=== PATIENT | male | born 1935 | race Caucasian/White ===

== ENCOUNTER 2017-03-11 01:56 | Inpatient (IN) | payer MEDICARE, OTHER ==
[~2017-03-11] VITALS: Ht 180.3 cm; Wt 100.1 kg
[2017-03-11 02:15] VITALS: BP 204/87; PULSE 61; RESP 15; TEMP 97.7; O2SAT 100
[2017-03-11 03:13] VITALS: BP 171/77
[2017-03-11 03:15] LABS: AUTOMATED NEUTROPHIL # 4.6 TH/MM3 (1.8-7.7); BASOPHIL % 0.3 % (0.0-2.0); EOSINOPHIL # 0.1 TH/MM3 (0-0.4); HEMATOCRIT 42.7 % (39.0-51.0); HEMO FLAGS DIFF FINAL; LYMPH % 23.6 % (9.0-44.0); LYMPHOCYTE # 1.6 TH/MM3 (1.0-4.8); MEAN CELL VOLUME 94.4 FL (80.0-100.0); MEAN CORPUSCULAR HEMOGLOBIN 32.4 PG (27.0-34.0); MEAN CORPUSCULAR HGB CONC 34.4 % (32.0-36.0); MONO % 7.6 % (0.0-8.0); NEUT % 67.5 % (16.0-70.0); PLATELET COUNT 120 TH/MM3 (150-450); RED BLOOD COUNT 4.52 MIL/MM3 (4.50-5.90); RED CELL DISTRIBUTION WIDTH 14.1 % (11.6-17.2); WHITE BLOOD COUNT 6.8 TH/MM3 (4.0-11.0)
[2017-03-11 03:31] LABS: ALT (GPT) 28 U/L (12-78); ANION GAP 11 MEQ/L (5-15); AST (GOT) 20 U/L (15-37); BICARBONATE 23.9 MEQ/L (21.0-32.0); BLOOD UREA NITROGEN 31 MG/DL (7-18); CHLORIDE 107 MEQ/L (98-107); GLOMERULAR FILTRATION RATE 32 ML/MIN (>89); POTASSIUM 4.5 MEQ/L (3.5-5.1); SODIUM (NA) 142 MEQ/L (136-145)
[2017-03-11 03:33] LABS: ALKALINE PHOSPHATASE 69 U/L (45-117)
[2017-03-11 03:35] LABS: ALCOHOL LESS THAN 3 MG/DL (0-5)
--- NOTE | 2017-03-11 04:16 | PD ---
HPI Chief Complaint: Psychiatric Symptoms Time Seen by Provider: 02:30 Travel History International Travel<30 days: No Contact w/Intl Traveler<30days: No Traveled to known affect area: No History of Present Illness HPI 82yo M was sent here from [facility] because he has IDDM and is out of their scope. Pt is under Torres Act for thinking he is the president and wanting to take his to [place] so that he may take office. Pt denies any physical complaints. Denies any fever, cough, chest pain, sob, n/v, abdominal pain, focal weakness or numbness. Pt is cooperative and has no signs of trauma on him. Denies suicidal or homicidal ideations. PFSH Past Medical History Medical History: Unable to Obtain Past Surgical History Surgical History: Unable to Obtain Social History Alcohol Use: No Tobacco Use: No Allergies-Medications (Allergen,Severity, Reaction): Coded Allergies: Adhesives (Verified Allergy, Severe, 03/11/17) Reported Meds & Prescriptions Reported Meds & Active Scripts Active Cipro (Ciprofloxacin HCl) 500 Mg Tab 500 Mg PO BID 10 Days Reported Lantus Inj (Insulin Glargine) 100 Unit/Ml Inj Novolog Inj (Insulin Aspart) 100 Unit/Ml Inj Mirtazapine 7.5 Mg Tab 7.5 Mg PO HS Ranitidine (Ranitidine HCl) 300 Mg Cap 300 Mg PO HS Super [place]-3 ([place] 3 Fatty Acids-[place] 6 FA) 1 Cap Cap 1 Cap PO BID Lisinopril 5 Mg Tab 5 Mg PO DAILY Ranexa ER 12 HR (Ranolazine) 1,000 Mg Tab 1,000 Mg PO BID Tamsulosin (Tamsulosin HCl) 0.4 Mg Cap 0.4 Mg PO HS D-2000 Maximum Strength (Cholecalciferol) 2,000 Unit Tab 1,000 Units PO DAILY Atorvastatin (Atorvastatin Calcium) 20 Mg Tab 20 Mg PO HS Carvedilol 12.5 Mg Tab 12.5 Mg PO BID Review of Systems Except as stated in HPI: all other systems reviewed are Neg Physical Exam Narrative GENERAL: 82yo M not in distress. SKIN: Focused skin assessment warm/dry. HEAD: Atraumatic. Normocephalic. EYES: Pupils equal and round. No scleral icterus. No injection or drainage. ENT: No nasal bleeding or discharge. Mucous membranes pink and moist. NECK: Trachea midline. No JVD. CARDIOVASCULAR: Regular rate and rhythm. No murmur appreciated. RESPIRATORY: No accessory muscle use. Clear to auscultation. Breath sounds equal bilaterally. GASTROINTESTINAL: Abdomen soft, non-tender, nondistended. MUSCULOSKELETAL: No obvious deformities. No clubbing. No cyanosis. No edema. NEUROLOGICAL: Awake and alert. No obvious cranial nerve deficits. Motor grossly within normal limits. PSYCHIATRIC: Inappropriate mood and affect; poor insight and judgment. Data Data Last Documented VS Vital Signs Date Time Temp Pulse Resp B/P Pulse Ox O2 Delivery O2 Flow Rate FiO2 03/11/17 08:27 60 152/72 99 03/11/17 02:21 16 03/11/17 02:15 97.7 Orders Complete Blood Count With Diff (03/11/17 02:30) Comprehensive Metabolic Panel (03/11/17 02:30) Urinalysis - C+S If Indicated (03/11/17 02:30) Psych Screen (03/11/17 02:30) Drug Screen, Random Urine (03/11/17 02:30) Alcohol (Ethanol) (03/11/17 02:30) Urine Culture (03/11/17 12:30) Ceftriaxone Inj (Rocephin Inj) (03/11/17 13:45) Sodium Chlor 0.9% 1000 Ml Inj (Ns 1000 M (03/11/17 13:35) Ceftriaxone Inj (Rocephin Inj) (03/11/17 14:15) Admit Order (Ed Use Only) (03/11/17 ) Code Status (03/11/17 14:43) Vital Signs (Adult) [id number].[id number].E (03/11/17 14:43) Activity Oob Ad [place] (03/11/17 14:43) Level Of Observation (Psych) (03/11/17 14:43) Acetaminophen (Tylenol) (03/11/17 14:45) Magnesium Hydroxide Liq (Milk Of Magnesi (03/11/17 14:45) Al-Mag Hy-Si 40-40-4 Mg/Ml Liq (Mag-Al P (03/11/17 14:45) Basic Metabolic Panel (Bmp) (03/12/17 06:00) Lipid Profile (03/12/17 06:00) Hemoglobin (Hgb) A1c (03/12/17 06:00) Vitamin D, 25-Hydroxy (03/12/17 06:00) Vitamin B12 (03/12/17 06:00) Consult Hospitalist (03/11/17 ) Labs Laboratory Tests Test 03/11/17 03/11/17 02:58 12:30 White Blood Count 6.8 TH/MM3 Red Blood Count 4.52 MIL/MM3 Hemoglobin 14.7 GM/DL Hematocrit 42.7 % Mean Corpuscular Volume 94.4 FL Mean Corpuscular Hemoglobin 32.4 PG Mean Corpuscular Hemoglobin 34.4 % Concent Red Cell Distribution Width 14.1 % Platelet Count 120 TH/MM3 Mean Platelet Volume 9.6 FL Neutrophils (%) (Auto) 67.5 % Lymphocytes (%) (Auto) 23.6 % Monocytes (%) (Auto) 7.6 % Eosinophils (%) (Auto) 1.0 % Basophils (%) (Auto) 0.3 % Neutrophils # (Auto) 4.6 TH/MM3 Lymphocytes # (Auto) 1.6 TH/MM3 Monocytes # (Auto) 0.5 TH/MM3 Eosinophils # (Auto) 0.1 TH/MM3 Basophils # (Auto) 0.0 TH/MM3 CBC Comment DIFF FINAL Differential Comment Sodium Level 142 MEQ/L Potassium Level 4.5 MEQ/L Chloride Level 107 MEQ/L Carbon Dioxide Level 23.9 MEQ/L Anion Gap 11 MEQ/L Blood Urea Nitrogen 31 MG/DL Creatinine 2.02 MG/DL Estimat Glomerular Filtration 32 ML/MIN Rate Random Glucose 134 MG/DL Calcium Level 8.6 MG/DL Total Bilirubin 1.0 MG/DL Aspartate Amino Transf 20 U/L (AST/SGOT) Alanine Aminotransferase 28 U/L (ALT/SGPT) Alkaline Phosphatase 69 U/L Total Protein 7.5 GM/DL Albumin 3.9 GM/DL Ethyl Alcohol Level LESS THAN 3 MG/DL Urine Color YELLOW Urine Turbidity HAZY Urine pH 5.5 Urine Specific [place] 1.019 Urine Protein TRACE mg/dL Urine Glucose (UA) NEG mg/dL Urine Ketones NEG mg/dL Urine Occult Blood NEG Urine Nitrite NEG Urine Bilirubin NEG Urine Urobilinogen LESS THAN 2.0 MG/DL Urine Leukocyte Esterase LARGE Urine RBC 2 /hpf Urine WBC 91 /hpf Urine Squamous Epithelial 1 /hpf Cells Urine Transitional Epithelial <1 /hpf Cells Urine Bacteria RARE /hpf Urine Hyaline Casts 5 /lpf Urine Mucus FEW /lpf Microscopic Urinalysis Comment CULTURE INDICATED Urine Opiates Screen NEG Urine Barbiturates Screen NEG Urine Amphetamines Screen NEG Urine Benzodiazepines Screen NEG Urine Cocaine Screen NEG Urine Cannabinoids Screen NEG MDM Medical Decision Making Medical Screen Exam Complete: Yes Emergency Medical Condition: Yes Differential Diagnosis Dementia vs. delusions vs. infection Narrative Course 82yo M thinks he was president today. Labs reviewed, no leukocytosis. Glucose 134. Creatinine elevated at 2.02, no prior to compare. Alcohol negative. UA still pending. Pt is hypertensive, last BP is 171/77. Pt likely has long standing HTN but denies any complaints. Pt medically clear for psych evaluation for his delusions and since pt is in no acute distress, will not cath pt for urine, will send sample when able to obtain it. Diagnosis Primary Impression: Delusions Additional Impression: Elevated serum creatinine Scripts Ciprofloxacin (Cipro)500 Mg [id number] Mg PO BID 10 Days Ref 0 Prov:Priyanka Aguilar DO 03/11/17 Priyanka Aguilar DO Mar 11, 2017 04:16
[2017-03-11 08:27] VITALS: BP 152/72; PULSE 60; O2SAT 99
[2017-03-11 13:10] LABS: BACTERIA, URINE RARE /hpf; BLOOD, URINE NEG (NEG); GLUCOSE,URINE NEG (NEG); HYALINE CAST, URINE 5 /lpf (RARE); KETONE, URINE NEG (NEG); MUCUS URINE FEW /lpf (OCC); NITRITE,URINE NEG (NEG); PH, URINE 5.5 (5.0-8.5); SQUAMOUS EPITHELIAL CELL URINE 1 /hpf (0-5); TRANSITIONAL EPI CELLS, URINE <1 /hpf; URINE COLOR YELLOW (YELLW/STRAW)
[2017-03-11 13:11] LABS: COMMENT (UR) CULTURE INDICATED; CULTURE IF INDICATED CULTURE INDICATED
[2017-03-11] MEDS ORDERED: CARV12.52 PO (13:21)
[2017-03-11] MEDS ORDERED: RANI300C PO (13:27)
[2017-03-11] MEDS ORDERED: TAMS0.4C4 PO (13:27)
[2017-03-11] MEDS ORDERED: NOVOLOGSS (13:27)
[2017-03-11] MEDS ORDERED: LANTUS2P (13:27)
[2017-03-11] MEDS ORDERED: RANE1000 PO (13:27)
[2017-03-11] MEDS ORDERED: LISI-519 PO (13:27)
[2017-03-11] MEDS ORDERED: MIRT1TAB PO (13:27)
[2017-03-11] MEDS ORDERED: ATOR20TA15 PO (13:27)
[2017-03-11] MEDS ORDERED: D-20TAB3 PO (13:27)
[2017-03-11] MEDS ORDERED: SUPECAP PO (13:27)
[2017-03-11] MEDS ORDERED: CIPR-9 PO (13:29)
[2017-03-11] MEDS ORDERED: SODIUM CHLOR 0.9% 1000 ML INJ 1,000 ML IV SCH (13:35)
--- NOTE | 2017-03-11 13:37 | PD ---
Physical Exam Time Seen by Provider: 21:20 Data Data Last Documented VS Vital Signs Date Time Temp Pulse Resp B/P Pulse Ox O2 Delivery O2 Flow Rate FiO2 03/11/17 08:27 60 152/72 99 03/11/17 02:21 16 03/11/17 02:15 97.7 Orders Complete Blood Count With Diff (03/11/17 02:30) Comprehensive Metabolic Panel (03/11/17 02:30) Urinalysis - C+S If Indicated (03/11/17 02:30) Psych Screen (03/11/17 02:30) Drug Screen, Random Urine (03/11/17 02:30) Alcohol (Ethanol) (03/11/17 02:30) Diet Regular Basic (03/11/17 Lunch) Urine Culture (03/11/17 12:30) Ceftriaxone Inj (Rocephin Inj) (03/11/17 13:45) Sodium Chlor 0.9% 1000 Ml Inj (Ns 1000 M (03/11/17 13:35) Ceftriaxone Inj (Rocephin Inj) (03/11/17 14:15) Labs Laboratory Tests Test 03/11/17 03/11/17 02:58 12:30 White Blood Count 6.8 TH/MM3 Red Blood Count 4.52 MIL/MM3 Hemoglobin 14.7 GM/DL Hematocrit 42.7 % Mean Corpuscular Volume 94.4 FL Mean Corpuscular Hemoglobin 32.4 PG Mean Corpuscular Hemoglobin 34.4 % Concent Red Cell Distribution Width 14.1 % Platelet Count 120 TH/MM3 Mean Platelet Volume 9.6 FL Neutrophils (%) (Auto) 67.5 % Lymphocytes (%) (Auto) 23.6 % Monocytes (%) (Auto) 7.6 % Eosinophils (%) (Auto) 1.0 % Basophils (%) (Auto) 0.3 % Neutrophils # (Auto) 4.6 TH/MM3 Lymphocytes # (Auto) 1.6 TH/MM3 Monocytes # (Auto) 0.5 TH/MM3 Eosinophils # (Auto) 0.1 TH/MM3 Basophils # (Auto) 0.0 TH/MM3 CBC Comment DIFF FINAL Differential Comment Sodium Level 142 MEQ/L Potassium Level 4.5 MEQ/L Chloride Level 107 MEQ/L Carbon Dioxide Level 23.9 MEQ/L Anion Gap 11 MEQ/L Blood Urea Nitrogen 31 MG/DL Creatinine 2.02 MG/DL Estimat Glomerular Filtration 32 ML/MIN Rate Random Glucose 134 MG/DL Calcium Level 8.6 MG/DL Total Bilirubin 1.0 MG/DL Aspartate Amino Transf 20 U/L (AST/SGOT) Alanine Aminotransferase 28 U/L (ALT/SGPT) Alkaline Phosphatase 69 U/L Total Protein 7.5 GM/DL Albumin 3.9 GM/DL Ethyl Alcohol Level LESS THAN 3 MG/DL Urine Color YELLOW Urine Turbidity HAZY Urine pH 5.5 Urine Specific [place] 1.019 Urine Protein TRACE mg/dL Urine Glucose (UA) NEG mg/dL Urine Ketones NEG mg/dL Urine Occult Blood NEG Urine Nitrite NEG Urine Bilirubin NEG Urine Urobilinogen LESS THAN 2.0 MG/DL Urine Leukocyte Esterase LARGE Urine RBC 2 /hpf Urine WBC 91 /hpf Urine Squamous Epithelial 1 /hpf Cells Urine Transitional Epithelial <1 /hpf Cells Urine Bacteria RARE /hpf Urine Hyaline Casts 5 /lpf Urine Mucus FEW /lpf Microscopic Urinalysis Comment CULTURE INDICATED MDM Medical Record Reviewed: Yes Supervised Visit with HARRISON: No Narrative Course This is an 82-year-old male who is here under a Torres act for psychiatric evaluation. He was initially medically cleared by Dr. Aguilar 9 hours ago, please see her note for complete history of present illness. I was called by the psychiatric nurse because they were only recently able to obtain a urinalysis result which is suspicious for urinary tract infection. Urinalysis reveals 91 wbc's, culture is currently pending. The patient is only allergic to adhesives. He will be given IV Rocephin and 1 L of IV fluids here. He is likely being admitted psychiatrically according to the psychiatric nurse and they plan on consult jeaning the hospitalist group to continue treatment of this UTI and to follow-up with culture results. A prescription for ciprofloxacin has also been provided in case the patient is discharged sooner. He is medically cleared. The IV dose of Rocephin was changed to IM as the patient is in the psychiatric unit. Diagnosis Primary Impression: Delusions Additional Impressions: Elevated serum creatinine Urinary tract infection Qualified Code: N30.00 - Acute cystitis without hematuria Scripts Ciprofloxacin (Cipro)500 Mg [id number] Mg PO BID 10 Days Ref 0 Prov:Priyanka Aguilar DO 03/11/17 Prakash Rodriguez Mar 11, 2017 13:37
[2017-03-11] MEDS ORDERED: cefTRIAXone INJ 1,000 MG in SODIUM CHLORIDE 0.9% INJ 100 ML IV ONE (13:45)
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
[2017-03-11] MEDS ORDERED: ACETAMINOPHEN 325 MG TAB PO PRN (14:45)
[2017-03-11] MEDS ORDERED: MAGNESIUM HYDROXIDE SUSP 30 ML CUP PO PRN (14:45)
[2017-03-11] MEDS ORDERED: ALUMINUM/MAGNESIUM/SIMETH 30 ML CUP PO PRN (14:45)
[2017-03-11 15:57] VITALS: BP 152/72
[2017-03-11 18:51] VITALS: BP 130/60; PULSE 83
[2017-03-11] MEDS ORDERED: LORazepam 2 MG/ML VIAL IM ONE (19:00)
[2017-03-12 06:00] VITALS: BP 190/88
[2017-03-12 06:21] VITALS: BP 142/88; PULSE 60; RESP 17; TEMP 97.2; O2SAT 95
[2017-03-12] MEDS ORDERED: DEXTROSE 50% IN WATER 50 ML VIAL(D50) IV PRN (08:00)
[2017-03-12] MEDS ORDERED: GLUCAGON 1 MG/ML VIAL OTHER PRN (08:00)
[2017-03-12] MEDS: INSULIN ASPART SUPPLEMENTAL SCALE SQ SCH ×3 (11:00→21:00)
[2017-03-12 12:00] LABS: ANION GAP 8 MEQ/L (5-15); BICARBONATE 27.5 MEQ/L (21.0-32.0); BLOOD UREA NITROGEN 25 MG/DL (7-18); CHLORIDE 108 MEQ/L (98-107); GLOMERULAR FILTRATION RATE 43 ML/MIN (>89); POTASSIUM 4.7 MEQ/L (3.5-5.1); SODIUM (NA) 143 MEQ/L (136-145)
--- NOTE | 2017-03-12 12:10 | PD.TTN ---
Present for Treatment Team Treatment Team Staff: Provider (Dr. Richards), Nurse (Mary), Psych Therapist ( DWAYNE Richardson), Other Clinician (Corazon) Patient Problems 1. Discharge planning 2. Medication compliance 3. Knowledge deficit 4. Lack of coping skills Progress Toward Goals Provider Input: Dr. Richards requested an update regarding patient's progress, medication management, treatment plan, and discharge plan. Nurse Input: Mary reported the patient presents with a flat affect and became guarded and refused to respond when asked about voices. Per Mary, the patient refused breakfast. Psych Therapist Input: Counselor reported the patient is new and I have not yet assessed the patient. Other Clinican Input: Patient is a new admission. Documentation Scribe: Tatianna Lawler Date Resolved: Mar 12, 2017 Tatianna Lawler Mar 12, 2017 12:10
[2017-03-12 12:25] LABS: HDL CHOLESTEROL 42.7 MG/DL (40.0-60.0); LDL CHOLESTEROL 94 MG/DL (0-99)
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
[2017-03-12 16:00] VITALS: BP 164/74; PULSE 61; RESP 16; TEMP 97.5; O2SAT 100
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
[2017-03-12] MEDS ORDERED: PILL SPLITTER OTHER PRN (17:00)
[2017-03-12] MEDS ORDERED: ALUMINUM/MAGNESIUM/SIMETH 30 ML CUP PO PRN (17:00)
[2017-03-12] MEDS ORDERED: ACETAMINOPHEN 325 MG TAB PO PRN (17:00)
[2017-03-12 18:00] VITALS: BP 155/87; PULSE 64; RESP 17; TEMP 97.6; O2SAT 97
[2017-03-12 18:16] LABS: HEMOGLOBIN A1a 0.9 %; HEMOGLOBIN A1b 1.7 %; HEMOGLOBIN Ao 85.4 %; HEMOGLOBIN LA1C 2.1 %; HEMOGLOBIN P3 5.3 %
[2017-03-12] MEDS: RANOLAZINE 500 MG EXTENDED RELEASE TAB PO SCH (21:00)
[2017-03-12] MEDS ORDERED: MIRTAZAPINE 15 MG TAB PO SCH (21:00)
[2017-03-12] MEDS ORDERED: FATTY ACIDS OMEGA PO SCH (21:00)
[2017-03-12] MEDS ORDERED: OMEGA FA PO SCH (21:00)
[2017-03-12] MEDS: TAMSULOSIN HCL 0.4 MG CAP PO SCH (21:40)
[2017-03-12] MEDS: ATORVASTATIN 20 MG TAB PO SCH (21:41)
[2017-03-12] MEDS: CARVEDILOL 12.5 MG TAB PO SCH (21:41)
[2017-03-12] MEDS: FAMOTIDINE 20 MG TAB PO SCH (21:41)
[2017-03-12] MEDS: CIPROFLOXACIN 500 MG TAB PO SCH (21:41)
[2017-03-13 06:00] VITALS: BP 153/74; PULSE 60; RESP 18; TEMP 98.2; O2SAT 96
[2017-03-13] MEDS: INSULIN ASPART SUPPLEMENTAL SCALE SQ SCH ×4 (07:00→21:11)
[2017-03-13] MEDS: CHOLECALCIFEROL (VIT D3) 1000 UNIT TAB PO SCH (08:12)
[2017-03-13] MEDS: RANOLAZINE 500 MG EXTENDED RELEASE TAB PO SCH ×2 (08:13→21:01)
[2017-03-13] MEDS: CARVEDILOL 12.5 MG TAB PO SCH ×2 (08:14→21:01)
[2017-03-13] MEDS: LISINOPRIL 5 MG TAB PO SCH (08:14)
[2017-03-13] MEDS: FAMOTIDINE 20 MG TAB PO SCH ×2 (08:14→21:00)
[2017-03-13] MEDS: CIPROFLOXACIN 500 MG TAB PO SCH ×2 (08:15→21:01)
[2017-03-13 10:13] LABS: POTASSIUM 4.5 MEQ/L (3.5-5.1)
--- NOTE | 2017-03-13 10:31 | HHI.PYPN ---
Subjective Remarks Patient seen with nurse Monie in dayroom, chart review, patient compliant medications. Patient calm diffusely confused continues minimal socialization. The patient did remember some of our conversation from yesterday. Continues quite sad when attempting to discuss his mood he becomes somewhat tearful with decreased affect. Will increase his Remeron to 15 mg at at bedtime. He is been no behavioral problems. Review of Systems Except as stated in HPI: all other systems reviewed are Neg Objective Alert: Yes [place]: Person, [place] Date, Situation Mood: Calm, Depressed Affect: Other ([place]. ) Memory Intact: Comment (impaired at present) Hallucinations: Auditory, Visual Delusions: Yes Delusion Type: Grandiose (He is the President of the World) Suicidal: Ideation (no plan) Homicidal: Ideation (Negative) Insight/Judgment Poor Labs Test 03/12/17 03/13/17 10:30 08:46 Sodium Level 143 MEQ/L 141 MEQ/L Potassium Level 4.7 MEQ/L 4.5 MEQ/L Chloride Level 108 MEQ/L 107 MEQ/L Carbon Dioxide Level 27.5 MEQ/L 26.0 MEQ/L Anion Gap 8 MEQ/L 8 MEQ/L Blood Urea Nitrogen 25 MG/DL 29 MG/DL Creatinine 1.54 MG/DL 1.66 MG/DL Estimat Glomerular Filtration 43 ML/MIN 40 ML/MIN Rate Random Glucose 100 MG/DL 120 MG/DL Hemoglobin A1c 5.3 % Calcium Level 8.9 MG/DL 8.8 MG/DL Triglycerides Level 142 MG/DL Cholesterol Level 165 MG/DL LDL Cholesterol 94 MG/DL HDL Cholesterol 42.7 MG/DL Cholesterol/HDL Ratio 3.86 RATIO Vitamin B12 Level 1685 PG/ML 25-Hydroxy Vitamin D Total 22.3 ng/ML Date/Time Procedure Status Source Growth 03/11/17 12:30 Urine Culture - Final Complete Urine Clean Catch 50-100,000 CFU/ML MIXED GRAM POSITIVE... Vitals/IOs Vital Signs Date Time Temp Pulse Resp B/P Pulse Ox O2 Delivery O2 Flow Rate FiO2 03/13/17 06:00 98.2 60 18 153/74 96 Intake and Output 03/12/17 03/12/17 03/13/17 08:00 16:00 00:00 Intake Total 0 ml 0 ml 120 ml Balance 0 ml 0 ml 120 ml Assessment & Plan Problem List: (1) PTSD (post-traumatic stress disorder) ICD Code: F43.10 (2) Urinary tract infection ICD Code: N39.0 (3) Major depressive disorder, recurrent episode, moderate with mixed features ICD Code: F33.1 Assessment & Plan Estimated LOS: days patient continues depressed somewhat confused, though no behavior problems see medication adjustment above Justification for Cont. Inpt. At this time patient will decompensate placed in a lower level of care Discharge Planning To be determined Request HC Surrog/Guard Advoc?: No Problem Qualifiers (1) Urinary tract infection: Qualified Code: N30.00 - Acute cystitis without hematuria Marcus Richards MD Mar 13, 2017 10:31
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
[2017-03-13] MEDS: hydrOXYzine HCL 50 MG TAB PO PRN ×2 (15:46→15:58)
[2017-03-13 15:47] VITALS: BP 159/71; PULSE 42; RESP 18; TEMP 97.2; O2SAT 98
[2017-03-13] MEDS ORDERED: diphenhydrAMINE HCL 50 MG/ML VIAL ONE (16:50)
[2017-03-13] MEDS ORDERED: HALOPERIDOL LACTATE 5 MG/ML AMP ONE (16:50)
[2017-03-13] MEDS ORDERED: LORazepam 2 MG/ML VIAL ONE (16:50)
[2017-03-13] MEDS: MIRTAZAPINE 15 MG TAB PO SCH (20:59)
[2017-03-13] MEDS: TAMSULOSIN HCL 0.4 MG CAP PO SCH (21:01)
[2017-03-13] MEDS: ATORVASTATIN 20 MG TAB PO SCH (21:01)
[2017-03-14 06:00] VITALS: BP 93/46; PULSE 60; RESP 19; TEMP 97; O2SAT 96
[2017-03-14] MEDS: INSULIN ASPART SUPPLEMENTAL SCALE SQ SCH ×4 (06:33→20:02)
[2017-03-14] MEDS: CIPROFLOXACIN 500 MG TAB PO SCH (08:54)
[2017-03-14] MEDS: LISINOPRIL 5 MG TAB PO SCH (08:55)
[2017-03-14] MEDS: CARVEDILOL 12.5 MG TAB PO SCH ×2 (08:55→20:09)
[2017-03-14] MEDS: CHOLECALCIFEROL (VIT D3) 1000 UNIT TAB PO SCH (08:55)
[2017-03-14] MEDS: RANOLAZINE 500 MG EXTENDED RELEASE TAB PO SCH ×2 (08:55→20:09)
[2017-03-14] MEDS: FAMOTIDINE 20 MG TAB PO SCH ×2 (09:00→20:10)
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
[2017-03-14 13:01] VITALS: BP 110/61; PULSE 60
--- NOTE | 2017-03-14 15:30 | HHI.PYPN ---
Subjective Remarks Met with patient's and son this morning along with counselor Kiki, the shared with us patient's fairly rapid psychotic behavior. But appears she had an episode when they were living in [place] a few years ago. Patient has a history though level is somewhat explosive behavior in the past. Though they deny any significant alcohol or drug use with this man. Patient did have an outburst last night that necessitated the use of a ETO of Haldol Ativan and Benadryl. Patient seen by me this afternoon he is sitting in a Latoya chair he is calm pleasant appears a little bit more confused than yesterday little more disorganized speech. We'll continue to monitor him tonight shows more behavior dyscontrol he may need to consider scheduled Haldol or other medication Review of Systems Except as stated in HPI: all other systems reviewed are Neg Objective Alert: Yes [place]: Person, [place] Date, Situation Mood: Calm, Depressed Affect: Other ([place]. ) Memory Intact: Comment (impaired at present) Hallucinations: Auditory, Visual Delusions: Yes Delusion Type: Grandiose (He is the President of the World) Suicidal: Ideation (no plan) Homicidal: Ideation (Negative) Insight/Judgment Poor Labs Date/Time Procedure Status Source Growth 03/11/17 12:30 Urine Culture - Final Complete Urine Clean Catch 50-100,000 CFU/ML MIXED GRAM POSITIVE... Vitals/IOs Vital Signs Date Time Temp Pulse Resp B/P Pulse Ox O2 Delivery O2 Flow Rate FiO2 03/14/17 13:01 60 110/61 03/14/17 06:00 97.0 19 96 Intake and Output 03/13/17 03/13/17 03/14/17 08:00 16:00 00:00 Intake Total 480 ml 720 ml Balance 480 ml 720 ml Assessment & Plan Problem List: (1) Major depressive disorder, recurrent severe without psychotic features ICD Code: F33.2 Assessment & Plan Estimated LOS: days patient continues confused, and somewhat more vigilant this afternoon. We'll continue to observe for any dyscontrol the Torres later this afternoon or evening Justification for Cont. Inpt. At this time patient decompensate the place to the lower level of care Discharge Planning To be determined Marcus Richards MD Mar 14, 2017 15:30
[2017-03-14 18:00] VITALS: BP 147/66; PULSE 64; RESP 18; TEMP 97.5; O2SAT 98
[2017-03-14] MEDS: MIRTAZAPINE 15 MG TAB PO SCH (20:09)
[2017-03-14] MEDS: TAMSULOSIN HCL 0.4 MG CAP PO SCH (20:10)
[2017-03-14] MEDS: ATORVASTATIN 20 MG TAB PO SCH (20:10)
[2017-03-15 05:22] VITALS: BP 181/81; PULSE 60; RESP 18; TEMP 97.4; O2SAT 98
[2017-03-15] MEDS: CARVEDILOL 12.5 MG TAB PO SCH ×2 (05:28→21:52)
[2017-03-15] MEDS: INSULIN ASPART SUPPLEMENTAL SCALE SQ SCH ×4 (06:04→21:00)
[2017-03-15] MEDS: RANOLAZINE 500 MG EXTENDED RELEASE TAB PO SCH ×2 (09:11→21:55)
[2017-03-15] MEDS: FAMOTIDINE 20 MG TAB PO SCH ×2 (09:11→21:52)
[2017-03-15] MEDS: LISINOPRIL 5 MG TAB PO SCH (09:11)
[2017-03-15] MEDS: CHOLECALCIFEROL (VIT D3) 1000 UNIT TAB PO SCH (09:11)
--- NOTE | 2017-03-15 10:19 | HHI.PYPN ---
Subjective Remarks Patient seen in dayroom with floor staff, chart reviewed. Patient showing some mixed compliance with medication. The present time patient sitting quietly in his Latoya chair with a somewhat flat sad gaze. However it appears she did recognize me. He became more reactive with me became better eye contact occasional small smile when appropriate verbal responses. Neurology consult noted reviewed and appreciated. Patient now will be getting his CT. For now continue treatment Review of Systems Except as stated in HPI: all other systems reviewed are Neg Objective Alert: Yes [place]: Person, Place [place] Date, Situation Mood: Calm, Depressed Affect: Other ([place]. ) Memory Intact: Comment (impaired at present) Hallucinations: Auditory, Visual Delusions: Yes Delusion Type: Grandiose (He is the President of the World) Suicidal: Ideation (no plan) Homicidal: Ideation (Negative) Insight/Judgment Poor Labs Date/Time Procedure Status Source Growth 03/11/17 12:30 Urine Culture - Final Complete Urine Clean Catch 50-100,000 CFU/ML MIXED GRAM POSITIVE... Vitals/IOs Vital Signs Date Time Temp Pulse Resp B/P Pulse Ox O2 Delivery O2 Flow Rate FiO2 03/15/17 05:22 97.4 60 18 181/81 98 Intake and Output 03/14/17 03/14/17 03/15/17 08:00 16:00 00:00 Intake Total 120 ml 0 ml 960 ml Balance 120 ml 0 ml 960 ml Assessment & Plan Problem List: (1) Major depressive disorder, recurrent severe without psychotic features ICD Code: F33.2 Assessment & Plan Estimated LOS: days patient continues depressed somewhat confused. Some resistance to treatment. To be getting his CT scan today Justification for Cont. Inpt. At this time patient will decompensate if placed a lower level of care Discharge Planning Be determined Marcus Richards MD Mar 15, 2017 10:19
--- NOTE | 2017-03-15 11:29 | RADRPT ---
EXAM DATE/TIME: 03/15/2017 10:13 [place] COMPARISON: No previous studies available for comparison. INDICATIONS : Altered mental status. RADIATION DOSE: 48.49 CTDIvol (mGy) MEDICAL HISTORY : Hypertension. SURGICAL HISTORY : Pacemaker. ENCOUNTER: Initial ACUITY: 1 day PAIN SCALE: 0/10 LOCATION: cranial TECHNIQUE: Multiple contiguous axial images were obtained of the head. Using automated exposure control and adj ustment of the mA and/or kV according to patient size, radiation dose was kept as low as reasonably a chievable to obtain optimal diagnostic quality images. DICOM format image data is available electro nically for review and comparison. FINDINGS: CEREBRUM: Cerebral atrophy is noted. No evidence of midline shift, mass lesion, hemorrhage or acute infarction . No extra-axial fluid collections are seen. POSTERIOR FOSSA: The cerebellum and brainstem are intact. The 4th ventricle is midline. The cerebellopontine angle i s unremarkable. EXTRACRANIAL: The visualized portion of the orbits is intact. SKULL: The calvaria is intact. No evidence of skull fracture. CONCLUSION: 1. Cerebral atrophy. 2. No acute infarct, acute hemorrhage, mass effect or extra-axial fluid collections. Daniel Elizondo MD on March 15, 2017 at 11:25 Board Certified Radiologist. This report was verified electronically.
[2017-03-15 17:51] VITALS: BP 159/70; PULSE 42; RESP 18; TEMP 97.2
[2017-03-15] MEDS: TAMSULOSIN HCL 0.4 MG CAP PO SCH (21:52)
[2017-03-15] MEDS: ATORVASTATIN 20 MG TAB PO SCH (21:52)
[2017-03-15] MEDS: MIRTAZAPINE 15 MG TAB PO SCH (21:52)
[2017-03-16 05:59] VITALS: BP 158/70; PULSE 61; RESP 17; TEMP 98.4; O2SAT 96
[2017-03-16] MEDS: INSULIN ASPART SUPPLEMENTAL SCALE SQ SCH ×4 (06:21→20:29)
[2017-03-16] MEDS: FAMOTIDINE 20 MG TAB PO SCH ×2 (09:00→20:29)
[2017-03-16] MEDS: LISINOPRIL 5 MG TAB PO SCH (09:51)
[2017-03-16] MEDS: CARVEDILOL 12.5 MG TAB PO SCH ×2 (09:56→20:29)
[2017-03-16] MEDS: CHOLECALCIFEROL (VIT D3) 1000 UNIT TAB PO SCH (09:58)
[2017-03-16] MEDS: RANOLAZINE 500 MG EXTENDED RELEASE TAB PO SCH ×2 (11:19→20:29)
[2017-03-16 14:01] LABS: BICARBONATE 24.2 MEQ/L (21.0-32.0); POTASSIUM 4.4 MEQ/L (3.5-5.1)
--- NOTE | 2017-03-16 15:19 | HHI.PYPN ---
Subjective Remarks Patient seen in day room with counselor Kiki, chart review, patient compliant medications. Patient calm slightly confused today his mood and affect are somewhat improved over yesterday. He is compliant medications. For now continue treatment Review of Systems Except as stated in HPI: all other systems reviewed are Neg Objective Alert: Yes [place]: Person, Place [place] Date, Situation Mood: Calm, Depressed Affect: Other ([place]. ) Memory Intact: Comment (impaired at present) Hallucinations: Auditory, Visual Delusions: Yes Delusion Type: Grandiose (He is the President of the World) Suicidal: Ideation (no plan) Homicidal: Ideation (Negative) Insight/Judgment Very poor Labs Test 03/16/17 13:20 Sodium Level 143 MEQ/L Potassium Level 4.4 MEQ/L Chloride Level 108 MEQ/L Carbon Dioxide Level 24.2 MEQ/L Anion Gap 11 MEQ/L Blood Urea Nitrogen 44 MG/DL Creatinine 2.05 MG/DL Estimat Glomerular Filtration 31 ML/MIN Rate Random Glucose 114 MG/DL Calcium Level 9.1 MG/DL Vitals/IOs Vital Signs Date Time Temp Pulse Resp B/P Pulse Ox O2 Delivery O2 Flow Rate FiO2 03/16/17 05:59 98.4 61 17 158/70 96 Intake and Output 03/15/17 03/15/17 03/16/17 08:00 16:00 00:00 Intake Total 120 ml 120 ml 120 ml Balance 120 ml 120 ml 120 ml Assessment & Plan Problem List: (1) Major depressive disorder, recurrent severe without psychotic features ICD Code: F33.2 Assessment & Plan Estimated LOS: days patient continues depressed but somewhat more reactive today compliant medications. Justification for Cont. Inpt. At this time patient will decompensate if placed a lower level of care Discharge Planning To be determined Marcus Richards MD Mar 16, 2017 15:19
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
[2017-03-16 17:43] VITALS: BP 113/58; PULSE 60; RESP 18; TEMP 97.6; O2SAT 95
[2017-03-16] MEDS ORDERED: cloNIDine HCL 0.1 MG TAB PO PRN (18:00)
--- NOTE | 2017-03-16 20:17 | RADRPT ---
EXAM DATE/TIME: 03/16/2017 19:01 [place] COMPARISON: No previous studies available for comparison. INDICATIONS : Increased lab values. MEDICAL HISTORY : Hypertension. Homicidal behavior. Incontinent. SURGICAL HISTORY : Pacemaker. ENCOUNTER: Initial ACUITY: 1 day PAIN SCORE: 0/10 LOCATION: Bilateral flank MEASUREMENTS: cm LEFT KIDNEY: 10.0 x 5.6 x 5.9 cm FINDINGS: Right kidney not visualized. Numerous vascular calcifications noted in the left kidney. Left kidney a ppears atrophic. No hydronephrosis. No free fluid identified. CONCLUSION: 1. Right kidney not visualized. Mildly atrophic left kidney without hydronephrosis. Jamie Almanza MD on March 16, 2017 at 20:15 Board Certified Radiologist. This report was verified electronically.
[2017-03-16] MEDS: MIRTAZAPINE 15 MG TAB PO SCH (20:29)
[2017-03-16] MEDS: ATORVASTATIN 20 MG TAB PO SCH (20:29)
[2017-03-16] MEDS: TAMSULOSIN HCL 0.4 MG CAP PO SCH (20:29)
[2017-03-16] MEDS: SODIUM CHLOR 0.9% 1000 ML INJ 1,000 ML IV SCH (21:00)
[2017-03-17] MEDS: SODIUM CHLOR 0.9% 1000 ML INJ 1,000 ML IV SCH ×3 (04:55→21:46)
[2017-03-17 06:15] VITALS: BP 143/67; PULSE 61; RESP 18; TEMP 97.8; O2SAT 99
[2017-03-17] MEDS: INSULIN ASPART SUPPLEMENTAL SCALE SQ SCH (06:46)
[2017-03-17] MEDS: CARVEDILOL 12.5 MG TAB PO SCH ×2 (07:40→21:00)
[2017-03-17] MEDS: CHOLECALCIFEROL (VIT D3) 1000 UNIT TAB PO SCH (07:40)
[2017-03-17] MEDS: RANOLAZINE 500 MG EXTENDED RELEASE TAB PO SCH ×2 (07:40→21:00)
[2017-03-17] MEDS: FAMOTIDINE 20 MG TAB PO SCH ×2 (07:40→21:00)
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
[2017-03-17 13:18] LABS: BICARBONATE 22.2 MEQ/L (21.0-32.0); POTASSIUM 3.9 MEQ/L (3.5-5.1)
--- NOTE | 2017-03-17 15:50 | HHI.PYPN ---
Subjective Remarks Patient seen in his room sitting on chair beside his bed with his and his son. Along with nurse Jaja. Patient calm pleasant reactive with a good smile. Somewhat more oriented today also. For now can continue treatment Review of Systems Except as stated in HPI: all other systems reviewed are Neg Objective Alert: Yes [place]: Person, [place] Date, Situation Mood: Calm, Depressed Affect: Other ([place]. ) Memory Intact: Comment (impaired at present) Hallucinations: Auditory, Visual Delusions: Yes Delusion Type: Grandiose (He is the President of the World) Suicidal: Ideation (no plan) Homicidal: Ideation (Negative) Insight/Judgment Poor Labs Test 03/17/17 12:07 Sodium Level 141 MEQ/L Potassium Level 3.9 MEQ/L Chloride Level 109 MEQ/L Carbon Dioxide Level 22.2 MEQ/L Anion Gap 10 MEQ/L Blood Urea Nitrogen 42 MG/DL Creatinine 1.94 MG/DL Estimat Glomerular Filtration 33 ML/MIN Rate Random Glucose 165 MG/DL Calcium Level 8.2 MG/DL Vitals/IOs Vital Signs Date Time Temp Pulse Resp B/P Pulse Ox O2 Delivery O2 Flow Rate FiO2 03/17/17 06:15 97.8 61 18 143/67 99 Intake and Output 03/16/17 03/16/17 03/17/17 08:00 16:00 00:00 Intake Total 240 ml 480 ml 240 ml Balance 240 ml 480 ml 240 ml Assessment & Plan Problem List: (1) Major depressive disorder, recurrent severe without psychotic features ICD Code: F33.2 Assessment & Plan Estimated LOS: days patient showing some improved affect reactivite and smiling. For now continue treatment Justification for Cont. Inpt. At this time patient will decompensate placed in the lower level of care Discharge Planning To be determined Marcus Richards MD Mar 17, 2017 15:50
[2017-03-17] MEDS ORDERED: HALOPERIDOL LACTATE 5 MG/ML AMP IV PUSH STA (17:14)
[2017-03-17] MEDS ORDERED: LORazepam 2 MG/ML VIAL IV PUSH STA (17:14)
[2017-03-17 18:00] VITALS: BP 113/55; PULSE 60; RESP 18; TEMP 98.1; O2SAT 98
[2017-03-17] MEDS: TAMSULOSIN HCL 0.4 MG CAP PO SCH (21:00)
[2017-03-17] MEDS: MIRTAZAPINE 15 MG TAB PO SCH (21:00)
[2017-03-17] MEDS: ATORVASTATIN 20 MG TAB PO SCH (21:00)
[2017-03-18] MEDS: SODIUM CHLOR 0.9% 1000 ML INJ 1,000 ML IV SCH ×2 (03:50→14:30)
[2017-03-18 06:12] VITALS: BP 164/70; PULSE 64; RESP 16; TEMP 98.9; O2SAT 97
--- NOTE | 2017-03-18 08:26 | HHI.PYPN ---
Subjective Remarks Patient seen in his room with nurse know. Patient did have some behavioral issues outburst last night after being visited by his and son. I feel this reflection of his depression and his desire to be with his of 62 years. This morning he still remained somewhat depressed and sad. Though there may be some remnants of the Haldol/Ativan that he was given last night. For now continue treatment Review of Systems Except as stated in HPI: all other systems reviewed are Neg Objective Alert: Yes [place]: Person, Place [place] Date, Situation Mood: Calm, Depressed Affect: Other ([place]. ) Memory Intact: Comment (impaired at present) Hallucinations: Auditory, Visual Delusions: Yes Delusion Type: Grandiose (He is the President of the World) Suicidal: Ideation (no plan) Homicidal: Ideation (Negative) Insight/Judgment Poor Labs Test 03/17/17 12:07 Sodium Level 141 MEQ/L Potassium Level 3.9 MEQ/L Chloride Level 109 MEQ/L Carbon Dioxide Level 22.2 MEQ/L Anion Gap 10 MEQ/L Blood Urea Nitrogen 42 MG/DL Creatinine 1.94 MG/DL Estimat Glomerular Filtration 33 ML/MIN Rate Random Glucose 165 MG/DL Calcium Level 8.2 MG/DL Vitals/IOs Vital Signs Date Time Temp Pulse Resp B/P Pulse Ox O2 Delivery O2 Flow Rate FiO2 03/18/17 06:12 98.9 64 16 164/70 97 Intake and Output 03/17/17 03/17/17 03/18/17 08:00 16:00 00:00 Intake Total 120 ml 1696 ml 1332 ml Balance 120 ml 1696 ml 1332 ml Assessment & Plan Problem List: (1) Major depressive disorder, recurrent severe without psychotic features ICD Code: F33.2 Assessment & Plan Estimated LOS: days patient continues depressed some behavioral issues. For now continue treatment Justification for Cont. Inpt. At this time patient will decompensate if placed in a lower level of care Discharge Planning To be determined Marcus Richards MD Mar 18, 2017 08:26
[2017-03-18] MEDS: CARVEDILOL 12.5 MG TAB PO SCH ×3 (08:48→21:00)
[2017-03-18] MEDS: FAMOTIDINE 20 MG TAB PO SCH ×3 (08:48→21:00)
[2017-03-18] MEDS: CHOLECALCIFEROL (VIT D3) 1000 UNIT TAB PO SCH ×2 (08:48→09:00)
[2017-03-18] MEDS: RANOLAZINE 500 MG EXTENDED RELEASE TAB PO SCH ×3 (08:48→21:00)
[2017-03-18 08:54] LABS: BICARBONATE 23.8 MEQ/L (21.0-32.0); POTASSIUM 4.2 MEQ/L (3.5-5.1)
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
[2017-03-18 17:30] VITALS: BP 160/73; PULSE 80; RESP 18; TEMP 97.8; O2SAT 99
[2017-03-18] MEDS: TAMSULOSIN HCL 0.4 MG CAP PO SCH (21:00)
[2017-03-18] MEDS: MIRTAZAPINE 15 MG TAB PO SCH (21:00)
[2017-03-18] MEDS: ATORVASTATIN 20 MG TAB PO SCH (21:00)
[2017-03-19] MEDS: SODIUM CHLOR 0.9% 1000 ML INJ 1,000 ML IV SCH ×2 (04:35→16:30)
[2017-03-19 04:55] VITALS: BP 146/83; PULSE 86; RESP 17; TEMP 98.1; O2SAT 97
[2017-03-19 04:56] VITALS: BP 175/78; PULSE 59; RESP 16; TEMP 98.1
[2017-03-19] MEDS: FAMOTIDINE 20 MG TAB PO SCH ×2 (08:18→21:00)
[2017-03-19] MEDS: RANOLAZINE 500 MG EXTENDED RELEASE TAB PO SCH ×2 (08:18→21:00)
[2017-03-19] MEDS: CARVEDILOL 12.5 MG TAB PO SCH ×2 (08:18→21:00)
[2017-03-19] MEDS: CHOLECALCIFEROL (VIT D3) 1000 UNIT TAB PO SCH (08:18)
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
[2017-03-19] MEDS: HALOPERIDOL 2 MG TAB PO SCH (10:30)
--- NOTE | 2017-03-19 11:38 | PD.TTN ---
Present for Treatment Team Treatment Team Staff: Provider, Nurse, Psych Therapist, Occupational Therapist Patient Problems 1. Discharge planning 2. Medication compliance 3. Knowledge deficit 4. Lack of coping skills Progress Toward Goals Provider Input: Dr. Louie will be making adjustments with patient's medication to address, auditory and visual hallucination, and night time sleep disturbs. Nurse Input: Ron Joyce RN reports patient is paranoid with medication, meals and care. Psych Therapist Input: Counselor will speak with patient's family Occupational Therapist Input: GIGI Mathias, will address appropriate activities to meet patient's needs Documentation Teaching Recipient: Patient Berta Lora [facility] Mar 19, 2017 11:38
[2017-03-19 12:20] LABS: BICARBONATE 23.1 MEQ/L (21.0-32.0); POTASSIUM 4.3 MEQ/L (3.5-5.1)
[2017-03-19 18:00] VITALS: BP 141/66; PULSE 61; RESP 16; TEMP 99.1; O2SAT 97
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
[2017-03-19] MEDS: TAMSULOSIN HCL 0.4 MG CAP PO SCH (21:00)
[2017-03-19] MEDS: MIRTAZAPINE 15 MG TAB PO SCH (21:00)
[2017-03-19] MEDS: ATORVASTATIN 20 MG TAB PO SCH (21:00)
[2017-03-20] MEDS: SODIUM CHLOR 0.9% 1000 ML INJ 1,000 ML IV SCH ×2 (04:25→08:51)
[2017-03-20 05:52] VITALS: BP 168/71; PULSE 78; RESP 18; TEMP 97.7; O2SAT 97
[2017-03-20 06:24] VITALS: BP 168/71; PULSE 78; RESP 18; TEMP 97.7; O2SAT 97
[2017-03-20] MEDS: CARVEDILOL 12.5 MG TAB PO SCH ×2 (08:51→20:03)
[2017-03-20] MEDS: CHOLECALCIFEROL (VIT D3) 1000 UNIT TAB PO SCH (08:51)
[2017-03-20] MEDS: FAMOTIDINE 20 MG TAB PO SCH ×2 (08:51→20:03)
[2017-03-20] MEDS: HALOPERIDOL 2 MG TAB PO SCH ×2 (08:51→20:03)
[2017-03-20] MEDS: RANOLAZINE 500 MG EXTENDED RELEASE TAB PO SCH ×2 (08:51→20:03)
--- NOTE | 2017-03-20 09:24 | HHI.PR ---
Subjective Remarks Patient in the chair. Says she feels anxious but he is better today. Says she gets sob and with chest pain with anxiety. No n/v/d/c. Objective Vitals Vital Signs Date Time Temp Pulse Resp B/P Pulse Ox O2 Delivery O2 Flow Rate FiO2 03/20/17 06:24 97.7 78 18 168/71 97 03/20/17 05:52 97.7 78 18 168/71 97 03/19/17 18:00 99.1 61 16 141/66 97 I/O 03/19/17 03/19/17 03/19/17 03/20/17 03/20/17 03/20/17 07:00 15:00 23:00 07:00 15:00 23:00 Intake Total 840 ml 1080 ml 120 ml 240 ml Balance 840 ml 1080 ml 120 ml 240 ml Intake Oral 840 ml 1080 ml 120 ml 240 ml # Voids 3 1 1 Result Diagram: 03/19/17 1128 Imaging Last Impressions Renal Ultrasound 03/16/17 0000 Signed Impressions: Service Date/Time: Thursday, March 16, 2017 19:01 - CONCLUSION: 1. Right kidney not visualized. Mildly atrophic left kidney without hydronephrosis. Jamie Almanza MD Head CT 03/15/17 0000 Signed Impressions: Service Date/Time: February 10:13 - CONCLUSION: 1. Cerebral atrophy. 2. No acute infarct, acute hemorrhage, mass effect or extra-axial fluid collections. Daniel Elizondo MD Objective Remarks GENERAL: This is a well-nourished, well-developed patient, in no apparent distress. CARDIOVASCULAR: Regular rate and rhythm without murmurs, gallops, or rubs. RESPIRATORY: Clear to auscultation. Breath sounds equal bilaterally. No wheezes , rales, or rhonchi. GASTROINTESTINAL: Abdomen soft, non-tender, protuberant. Bowel Sounds hypoactive. MUSCULOSKELETAL: Extremities without clubbing, cyanosis, or edema. NEUROLOGICAL: Awake and alert. Oriented to place, person. No focal neuro deficit. Moves all extremities. Normal speech. A/P Problem List: (1) Psychosis ICD Code: F29 Status: Acute (2) Urinary tract infection ICD Code: N39.0 Status: Acute (3) CAD (coronary artery disease) ICD Code: I25.10 Status: Acute (4) HTN (hypertension) ICD Code: I10 Status: Acute Assessment and Plan This is an 82-year-old male patient with past medical history which includes diabetes mellitus, hypertension, CAD, PTSD. Patient is currently an inpatient psychiatric center and review of prior records patient believed he is the President Elect and has to go to [place]. He attempted to take his with him against her will. It is reported that the patient was a silver alert last week. It is also reported that prior to being placed under the BA he had his in a choke hold. We have been consulted for assistance in management including hypertension diabetes and UTI Psychiatric illness- management per psychiatric team Acute kidney injury, on CKD 3 Creatinine elevated 2.05 trending down --> 1.94 --> 1.40 ~ at baseline Continue to encourage by mouth hydration US renal bladder showed right kidney not visualized. Mildly atrophic left kidney without hydronephrosis IVF NS. Monitor for fluid overload Monitor renal indices. Kidney function is improving. Most probably with underlying chronic kidney disease secondary to hypertensive nephropathy. Diabetes mellitus 2 Diabetic diet Accu-Cheks in AM only Hemoglobin A1c 5.3 Hypertension Lisinopril dose 5 mg daily - hold due to increase creatinine. Monitor kidney function. Continue carvedilol 12.5 mg twice a day. 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
--- NOTE | 2017-03-20 18:12 | HHI.PYPN ---
Subjective Remarks Patient is a 82-year-old man, , with a past psychiatric history of major depressive disorder severe, PTSD, with unclear prior hospitalizations, denied history of suicide attempts, no history of substance use, with a past medical history for hypertension diabetes sleep apnea who was admitted on 03/12/17 under the Torres act for involuntary admission as patient had expressed believing he was president lacked taking his to [place] along with suicidal ideations feeling depressed. Patient was started on mirtazapine 15mg PO HS with haloperidol 2mg daily subsequently. Patient was a for follow-up with nurse, chart reviewed. As per nursing report patient was noted to have slept better and denied any auditory hallucinations this morning and reported feeling much better and eating. Nursing later this afternoon and reported noticing patient screaming Gods name and talking to self. Patient found in room sitting on a hospital chair watching television and was able to engage in interview. Patient states that he was able to sleep much better last evening and that his mood has been better this morning. He recalls that his mood yesterday was lousy like her or bad about snap. Patient noted to be slightly more cooperative today for interview although still noted to be guarded and at times noted to be irritable throughout questioning in interview. Patient states that he had production and auditory hallucinations 98% better but that he admitted continuing having experienced auditory hallucination disorder morning just the pinch. Patient refused to elaborate on auditory hallucinations. Patient states that he has been feeling a little better today although he is not too fond of the food that the served at the hospital. Patient with interview but noticed to be more guarded and was not amenable to further continue. Medicine consult reviewed, consult appreciated. Review of Systems Except as stated in HPI: all other systems reviewed are Neg Gastrointestinal: COMPLAINS OF: Constipation Objective Alert: Yes [place]: Person, [place] Mood: Other ("better was ") Affect: Other (guarded) Memory Intact: Comment (impaired at present) Hallucinations: Auditory (continues to endorse but reports less), Visual ( denied) Delusions: Yes Delusion Type: Paranoid Suicidal: Ideation (no plan) Homicidal: Ideation (Negative) Insight/Judgment Poor insight, impulse control, and judgment Vitals/IOs Vital Signs Date Time Temp Pulse Resp B/P Pulse Ox O2 Delivery O2 Flow Rate FiO2 03/20/17 06:24 97.7 78 18 168/71 97 Intake and Output 03/19/17 03/19/17 03/20/17 08:00 16:00 00:00 Intake Total 480 ml 360 ml 1080 ml Balance 480 ml 360 ml 1080 ml Assessment & Plan Problem List: (1) Major depressive disorder, recurrent, severe with psychotic symptoms ICD Code: F33.3 Assessment & Plan Estimated LOS: 5-7 days. Patients 82-year-old man who carries a diagnosis of MDD severe, PTSD who with this time presents with some psychotic symptoms, auditory hallucinations, paranoia, internal preoccupation and responding to some internal stimuli. Patient will continue upward titration of Haldol parallel to 2 mg by mouth twice a day for psychosis, continue mirtazapine 50 mg at bedtime for depressive symptoms. Patient continue recommendations as per primary medical team. Justification for Cont. Inpt. Patient risk for further decompensation event lower level of care Discharge Planning The process Sal Louie MD Mar 20, 2017 18:12
[2017-03-20] MEDS ORDERED: DOCUSATE SODIUM 100 MG CAP PO ONE (18:15)
[2017-03-20 18:47] VITALS: BP 109/52; PULSE 60; RESP 18; TEMP 98.2; O2SAT 95
[2017-03-20] MEDS: ATORVASTATIN 20 MG TAB PO SCH (20:03)
[2017-03-20] MEDS: MIRTAZAPINE 15 MG TAB PO SCH (20:03)
[2017-03-20] MEDS: TAMSULOSIN HCL 0.4 MG CAP PO SCH (20:03)
[2017-03-20] MEDS: hydrOXYzine HCL 50 MG TAB PO PRN (20:31)
[2017-03-21] MEDS: SODIUM CHLOR 0.9% 1000 ML INJ 1,000 ML IV SCH (04:15)
[2017-03-21 05:52] VITALS: BP 173/77; PULSE 60; RESP 16; TEMP 98; O2SAT 99
[2017-03-21] MEDS: RANOLAZINE 500 MG EXTENDED RELEASE TAB PO SCH ×2 (09:00→21:25)
[2017-03-21] MEDS: HALOPERIDOL 2 MG TAB PO SCH (09:00)
[2017-03-21] MEDS: CHOLECALCIFEROL (VIT D3) 1000 UNIT TAB PO SCH (09:00)
[2017-03-21] MEDS: FAMOTIDINE 20 MG TAB PO SCH ×2 (09:00→21:26)
[2017-03-21] MEDS: CARVEDILOL 12.5 MG TAB PO SCH ×2 (09:00→21:26)
[2017-03-21 09:06] LABS: AUTOMATED NEUTROPHIL # 2.4 TH/MM3 (1.8-7.7); BASOPHIL % 0.3 % (0.0-2.0); EOSINOPHIL # 0.1 TH/MM3 (0-0.4); HEMATOCRIT 37.9 % (39.0-51.0); HEMO FLAGS DIFF FINAL; LYMPH % 30.3 % (9.0-44.0); LYMPHOCYTE # 1.3 TH/MM3 (1.0-4.8); MEAN CELL VOLUME 93.1 FL (80.0-100.0); MEAN CORPUSCULAR HEMOGLOBIN 32.3 PG (27.0-34.0); MEAN CORPUSCULAR HGB CONC 34.7 % (32.0-36.0); MONO % 9.7 % (0.0-8.0); NEUT % 57.7 % (16.0-70.0); PLATELET COUNT 102 TH/MM3 (150-450); RED BLOOD COUNT 4.07 MIL/MM3 (4.50-5.90); RED CELL DISTRIBUTION WIDTH 13.8 % (11.6-17.2); WHITE BLOOD COUNT 4.2 TH/MM3 (4.0-11.0)
--- NOTE | 2017-03-21 09:12 | HHI.PR ---
Subjective Remarks He is in bed. Appears with flat affect. No n/v/d/c. Denies chest pain, sob, n/v/ d/c. No LE edema. BP is noted elevated, restarted lisinopril. Patient denies any change in vision , motor deficit, headache. Objective Vitals Vital Signs Date Time Temp Pulse Resp B/P Pulse Ox O2 Delivery O2 Flow Rate FiO2 03/21/17 05:52 98.0 60 16 173/77 99 03/20/17 18:47 98.2 60 18 109/52 95 I/O 03/20/17 03/20/17 03/20/17 03/21/17 03/21/17 03/21/17 07:00 15:00 23:00 07:00 15:00 23:00 Intake Total 120 ml 720 ml 280 ml 420 ml 0 ml Balance 120 ml 720 ml 280 ml 420 ml 0 ml Intake Oral 120 ml 720 ml 280 ml 420 ml 0 ml # Voids 1 1 1 4 Result Diagram: 03/21/17 0736 03/19/17 1128 Imaging Last Impressions Renal Ultrasound 03/16/17 0000 Signed Impressions: Service Date/Time: Thursday, March 16, 2017 19:01 - CONCLUSION: 1. Right kidney not visualized. Mildly atrophic left kidney without hydronephrosis. Jamie Almanza MD Head CT 03/15/17 0000 Signed Impressions: Service Date/Time: February 10:13 - CONCLUSION: 1. Cerebral atrophy. 2. No acute infarct, acute hemorrhage, mass effect or extra-axial fluid collections. Daniel Elizondo MD Objective Remarks GENERAL: This is a well-nourished, well-developed patient, in no apparent distress. CARDIOVASCULAR: Regular rate and rhythm without murmurs, gallops, or rubs. RESPIRATORY: Clear to auscultation. Breath sounds equal bilaterally. No wheezes , rales, or rhonchi. GASTROINTESTINAL: Abdomen soft, non-tender, protuberant. Bowel Sounds hypoactive. MUSCULOSKELETAL: Extremities without clubbing, cyanosis, or edema. NEUROLOGICAL: Awake and alert. Oriented to place, person. No focal neuro deficit. Moves all extremities. Normal speech. A/P Problem List: (1) Psychosis ICD Code: F29 Status: Acute (2) Urinary tract infection ICD Code: N39.0 Status: Acute (3) CAD (coronary artery disease) ICD Code: I25.10 Status: Acute (4) HTN (hypertension) ICD Code: I10 Status: Acute Assessment and Plan This is an 82-year-old male patient with past medical history which includes diabetes mellitus, hypertension, CAD, PTSD. Patient is currently an inpatient psychiatric center and review of prior records patient believed he is the President Elect and has to go to [place]. He attempted to take his with him against her will. It is reported that the patient was a silver alert last week. It is also reported that prior to being placed under the BA he had his in a choke hold. We have been consulted for assistance in management including hypertension diabetes and UTI Psychiatric illness- management per psychiatric team Acute kidney injury, on CKD 3 Creatinine elevated 2.05 trending down --> 1.94 --> 1.40 ~ at baseline Continue to encourage by mouth hydration US renal bladder showed right kidney not visualized. Mildly atrophic left kidney without hydronephrosis IVF NS. Monitor for fluid overload Monitor renal indices. Kidney function is improving. Most probably with underlying chronic kidney disease secondary to hypertensive nephropathy. Diabetes mellitus 2 Diabetic diet Accu-Cheks in AM only Hemoglobin A1c 5.3 Hypertension Lisinopril dose 5 mg daily - hold due to increase creatinine. Monitor kidney function. Restart lisinopril as kidney function at baseline and BP is not controlled. Continue carvedilol 12.5 mg twice a day. 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
[2017-03-21 09:23] LABS: BICARBONATE 25.9 MEQ/L (21.0-32.0)
[2017-03-21] MEDS: LISINOPRIL 5 MG TAB PO SCH (11:15)
--- NOTE | 2017-03-21 11:25 | HHI.PYPN ---
Subjective Remarks Patient is a 82-year-old man, , with a past psychiatric history of major depressive disorder severe, PTSD, with unclear prior hospitalizations, denied history of suicide attempts, no history of substance use, with a past medical history for hypertension diabetes sleep apnea who was admitted on 03/12/17 under the Torres act for involuntary admission as patient had expressed believing he was president lacked taking his to [place] along with suicidal ideations feeling depressed. Patient was started on mirtazapine 15mg PO HS with haloperidol 2mg BID subsequently. Patient seen for follow-up today with nurse; chart reviewed. As per nursing report patient had difficulty sleeping last evening. Patient was found in hospital bed sitting up, initially sleeping but was able to wake up to engage in interview. Patient states that he had a bad night that he could not sleep until 4:30 AM. Patient reports that since yesterday he had no auditory hallucinations until earlier this morning which he states he can understand the voices but refused to elaborate on the content of the voices. Patient states he was feeling well yesterday but today he feels very tired due to decreased sleep last night. Patient reports that even having thoughts of not wanting to be alive since this morning and no longer has them as he is now talking to real estate underwriter. He states now his mood is on the up start. When asked patient what his reasons to live or he says that he feels that God has a plan for him still and recalls that several family members had lived away beyond his current age. Patient reports continuing feeling depressed with decreased appetite and decreased energy and that she and concentration. Patient requests to have more variety of options for his meals. Patient states that he had been speaking with family over the phone and they have been involved. Patient at this time denies any suicidality or homicidality, unclear with the patient is considered continuing having auditory hallucinations during interview patient would not expand on this, denies any visual hallucinations or delusions. Patient at times is heard yelling when no one is the room and when returned to check patient he states that he is fine. Review of Systems ROS Limitations: Psychotic Except as stated in HPI: all other systems reviewed are Neg Objective Alert: Yes [place]: Person, Place [place] Mood: Other ("up start") Affect: Other (incongruent with mood, guarded) Memory Intact: Comment (impaired at present) Hallucinations: Auditory (continues to endorse but reports less), Visual ( denied) Delusions: Yes Delusion Type: Paranoid Suicidal: Ideation (no plan) Homicidal: Ideation (Negative) Insight/Judgment Poor insight, impulse control and judgement. Labs Test 03/21/17 07:36 White Blood Count 4.2 TH/MM3 Red Blood Count 4.07 MIL/MM3 Hemoglobin 13.1 GM/DL Hematocrit 37.9 % Mean Corpuscular Volume 93.1 FL Mean Corpuscular Hemoglobin 32.3 PG Mean Corpuscular Hemoglobin 34.7 % Concent Red Cell Distribution Width 13.8 % Platelet Count 102 TH/MM3 Mean Platelet Volume 9.5 FL Neutrophils (%) (Auto) 57.7 % Lymphocytes (%) (Auto) 30.3 % Monocytes (%) (Auto) 9.7 % Eosinophils (%) (Auto) 2.0 % Basophils (%) (Auto) 0.3 % Neutrophils # (Auto) 2.4 TH/MM3 Lymphocytes # (Auto) 1.3 TH/MM3 Monocytes # (Auto) 0.4 TH/MM3 Eosinophils # (Auto) 0.1 TH/MM3 Basophils # (Auto) 0.0 TH/MM3 CBC Comment DIFF FINAL Differential Comment Sodium Level 138 MEQ/L Potassium Level 4.0 MEQ/L Chloride Level 104 MEQ/L Carbon Dioxide Level 25.9 MEQ/L Anion Gap 8 MEQ/L Blood Urea Nitrogen 22 MG/DL Creatinine 1.30 MG/DL Estimat Glomerular Filtration 53 ML/MIN Rate Random Glucose 98 MG/DL Calcium Level 8.6 MG/DL Vitals/IOs Vital Signs Date Time Temp Pulse Resp B/P Pulse Ox O2 Delivery O2 Flow Rate FiO2 03/21/17 05:52 98.0 60 16 173/77 99 Intake and Output 03/20/17 03/20/17 03/21/17 08:00 16:00 00:00 Intake Total 120 ml 720 ml 520 ml Balance 120 ml 720 ml 520 ml Assessment & Plan Problem List: (1) Major depressive disorder, recurrent, severe with psychotic symptoms ICD Code: F33.3 Assessment & Plan Estimated LOS: 5-7 days. Estimated LOS: 5-7 days. Patient is 63-year-old woman, , living alone, with a past psychiatric history of bipolar disorder, denies any previous psychiatric hospitalizations but as per chart had 1 remote psychiatric hospitalization, denies any previous suicide attempts, denies any suicide attempts, denies any self injurious behavior, was brought into the ER with altered mental status. Patient since last visit yesterday had reported feeling better but appears that last evening he had difficulty sleeping and continues with positive hallucinations. Patient continues to endorse feeling depressed along with suicide ideations despite him expressing his reasons to live. Patient continues to endorse psychotic symptoms and appears to be responding to internal stimuli. Increase Haldol 2 mg AM, 5mg HS, increase mirtazapine to 30 mg at bedtime. Monitor for medication response and adverse drug reactions. Brief supportive psychotherapy provided. Discharge planning and process Justification for Cont. Inpt. Patient risk for further decompensation event lower level of care Discharge Planning In process Sal Louie MD Mar 21, 2017 11:25
[2017-03-21 18:53] VITALS: BP 148/67; PULSE 60; RESP 18; TEMP 98.6; O2SAT 94
[2017-03-21] MEDS: HALOPERIDOL 5 MG TAB PO SCH (21:25)
[2017-03-21] MEDS: TAMSULOSIN HCL 0.4 MG CAP PO SCH (21:26)
[2017-03-21] MEDS: MIRTAZAPINE 15 MG TAB PO SCH (21:26)
[2017-03-21] MEDS: ATORVASTATIN 20 MG TAB PO SCH (21:26)
[2017-03-22 05:46] VITALS: BP 145/77; PULSE 60; RESP 18; TEMP 97.7; O2SAT 100
[2017-03-22] MEDS: CARVEDILOL 12.5 MG TAB PO SCH ×2 (08:04→21:00)
[2017-03-22] MEDS: CHOLECALCIFEROL (VIT D3) 1000 UNIT TAB PO SCH (08:04)
[2017-03-22] MEDS: LISINOPRIL 5 MG TAB PO SCH (08:04)
[2017-03-22] MEDS: HALOPERIDOL 2 MG TAB PO SCH (08:04)
[2017-03-22] MEDS: FAMOTIDINE 20 MG TAB PO SCH ×2 (08:08→21:00)
[2017-03-22] MEDS: RANOLAZINE 500 MG EXTENDED RELEASE TAB PO SCH ×2 (08:08→21:00)
--- NOTE | 2017-03-22 11:39 | HHI.PR ---
Subjective Remarks In the chair. Family at bedside. Says he feels better today. Denies chest pain. Says he has sob at times. No fever or chills. No cough. No LE edema. Eating well. Objective Vitals Vital Signs Date Time Temp Pulse Resp B/P Pulse Ox O2 Delivery O2 Flow Rate FiO2 03/22/17 05:46 97.7 60 18 145/77 100 03/21/17 18:53 98.6 60 18 148/67 94 I/O 03/21/17 03/21/17 03/21/17 03/22/17 03/22/17 03/22/17 07:00 15:00 23:00 07:00 15:00 23:00 Intake Total 420 ml 0 ml 960 ml 50 ml 360 ml Output Total 1 ml Balance 420 ml 0 ml 959 ml 50 ml 360 ml Intake Oral 420 ml 0 ml 960 ml 50 ml 360 ml Output Urine Total 1 ml # Voids 4 0 2 Result Diagram: 03/21/17 0736 03/21/17 0736 Imaging Last Impressions Renal Ultrasound 03/16/17 0000 Signed Impressions: Service Date/Time: Thursday, March 16, 2017 19:01 - CONCLUSION: 1. Right kidney not visualized. Mildly atrophic left kidney without hydronephrosis. Jamie Almanza MD Head CT 03/15/17 0000 Signed Impressions: Service Date/Time: February 10:13 - CONCLUSION: 1. Cerebral atrophy. 2. No acute infarct, acute hemorrhage, mass effect or extra-axial fluid collections. Daniel Elizondo MD Objective Remarks GENERAL: This is a well-nourished, well-developed patient, in no apparent distress. CARDIOVASCULAR: Regular rate and rhythm without murmurs, gallops, or rubs. RESPIRATORY: Clear to auscultation. Breath sounds equal bilaterally. No wheezes , rales, or rhonchi. GASTROINTESTINAL: Abdomen soft, non-tender, protuberant. Bowel Sounds hypoactive. MUSCULOSKELETAL: Extremities without clubbing, cyanosis, or edema. NEUROLOGICAL: Awake and alert. Oriented to place, person. No focal neuro deficit. Moves all extremities. Normal speech. A/P Problem List: (1) Psychosis ICD Code: F29 Status: Acute (2) Urinary tract infection ICD Code: N39.0 Status: Acute (3) CAD (coronary artery disease) ICD Code: I25.10 Status: Acute (4) HTN (hypertension) ICD Code: I10 Status: Acute Assessment and Plan This is an 82-year-old male patient with past medical history which includes diabetes mellitus, hypertension, CAD, PTSD. Patient is currently an inpatient psychiatric center and review of prior records patient believed he is the President Elect and has to go to [place]. He attempted to take his with him against her will. It is reported that the patient was a silver alert last week. It is also reported that prior to being placed under the BA he had his in a choke hold. We have been consulted for assistance in management including hypertension diabetes and UTI Psychiatric illness- management per psychiatric team Acute kidney injury, on CKD 3 Creatinine elevated 2.05 trending down --> 1.94 --> 1.40 ~ at baseline. Improved and at baseline. Continue to encourage by mouth hydration US renal bladder showed right kidney not visualized. Mildly atrophic left kidney without hydronephrosis IVF NS, DC if appropriate PO intake. Monitor for fluid overload Monitor renal indices. Kidney function is improving. Most probably with underlying chronic kidney disease secondary to hypertensive nephropathy. Diabetes mellitus 2 Diabetic diet Accu-Cheks in AM only Hemoglobin A1c 5.3 Hypertension Lisinopril dose 5 mg daily - held due to increase creatinine. Monitor kidney function. Restart lisinopril as kidney function at baseline and BP is not controlled. Continue carvedilol 12.5 mg twice a day. 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
--- NOTE | 2017-03-22 17:44 | HHI.PYPN ---
Subjective Remarks Patient seen for follow-up, chart reviewed. As per nursing report patient slept all night but noted to be eating as much. Patient presented to court today for retention which patient was ordered to remain on psychiatry service for further treatment and management. Family was also present during the proceedings and expressed her concern for the patient and wanting patient to improve. Family was noted to be inpatient room and having brought some homemade meal which she enjoyed. Patient states that he has been feeling much better, and that his mood has been "up osvaldo" and smiles. He states that he continues if he feels slightly sad and depressed but not as much as before. Patient denies any suicidality at this time and states that he was only feeling depressed. Patient continues to endorse some auditory hallucinations but states that they are "way back there" and that he hears them faintly. Patient at this time reports feeling "pretty good" denies suicidal homicidal ideations, continues to endorse some auditory hallucination as stated above, denies visual hallucinations, denies any paranoia at time of interview. Review of Systems Except as stated in HPI: all other systems reviewed are Neg Objective Alert: Yes [place]: Person, [place] Mood: Other (".") Affect: Other (less guarded and more reactive today.) Memory Intact: Immediate, Recent Hallucinations: Auditory (continues to endorse but reports less) Delusions: No Delusion Type: Other (denies at this time) Suicidal: Ideation (denies) Homicidal: Ideation (Negative) Insight/Judgment Improved insight, fair impulse control and judgment. Vitals/IOs Vital Signs Date Time Temp Pulse Resp B/P Pulse Ox O2 Delivery O2 Flow Rate FiO2 03/22/17 05:46 97.7 60 18 145/77 100 Intake and Output 03/21/17 03/21/17 03/21/17 07:59 15:59 23:59 Intake Total 180 ml 0 ml 960 ml Output Total 1 ml Balance 180 ml 0 ml 959 ml Assessment & Plan Problem List: (1) Major depressive disorder, recurrent, severe with psychotic symptoms ICD Code: F33.3 Assessment & Plan Estimated LOS: 3-5 days. Patient at this time has shown a positive response to her treatment. Patient continues to endorse some depressive symptoms although much less since the onset, continues endorse vague auditory hallucinations and will continue to require further continuance on current treatment for stabilization. Patient noted to have had a better mood, noted to have more affect, and his future oriented at this time. Patient to continue current treatment regimen with upward titration as needed. Patient since yesterday has not had another episode of agitation nor noted to be talking to self. Brief supportive psychotherapy provided. Discharge planning in progress. Justification for Cont. Inpt. Patient at risk for further decompensation if it lower level of care Discharge Planning In progress Sal Louie MD Mar 22, 2017 17:44
[2017-03-22 18:09] VITALS: BP 110/86; PULSE 66; RESP 16; TEMP 98; O2SAT 95
--- NOTE | 2017-03-22 18:20 | EKG ---
Date Performed: 03/21/2017 Time Performed: 11:59:57 PTAGE: 82 years EKG: ELECTRONIC ATRIAL PACEMAKER RIGHT BUNDLE BRANCH BLOCK LEFT ANTERIOR FASCICULAR BLOCK MODERA TE T-WAVE ABNORMALITY, CONSIDER LATERAL ISCHEMIA ABNORMAL ECG NO PREVIOUS TRACING DOCTOR: Rose Guo Interpretating Date/Time 03/22/2017 18:18:50
[2017-03-22] MEDS: MIRTAZAPINE 15 MG TAB PO SCH (21:00)
[2017-03-22] MEDS: HALOPERIDOL 5 MG TAB PO SCH (21:00)
[2017-03-22] MEDS: ATORVASTATIN 20 MG TAB PO SCH (21:00)
[2017-03-22] MEDS: TAMSULOSIN HCL 0.4 MG CAP PO SCH (21:00)
[2017-03-22] MEDS: diphenhydrAMINE HCL 50 MG CAP PO PRN (23:30)
[2017-03-22] MEDS: hydrOXYzine HCL 50 MG TAB PO PRN (23:48)
[2017-03-23 06:16] VITALS: BP 109/56; PULSE 60; RESP 17; TEMP 97.7; O2SAT 98
[2017-03-23 08:00] LABS: AUTOMATED NEUTROPHIL # 3.9 TH/MM3 (1.8-7.7); BASOPHIL % 0.2 % (0.0-2.0); EOSINOPHIL # 0.1 TH/MM3 (0-0.4); EOSINOPHIL % 1.7 % (0.0-4.0); HEMATOCRIT 39.3 % (39.0-51.0); HEMO FLAGS DIFF FINAL; LYMPH % 22.2 % (9.0-44.0); LYMPHOCYTE # 1.3 TH/MM3 (1.0-4.8); MEAN CELL VOLUME 94.7 FL (80.0-100.0); MEAN CORPUSCULAR HEMOGLOBIN 31.5 PG (27.0-34.0); MEAN CORPUSCULAR HGB CONC 33.3 % (32.0-36.0); MONO % 9.3 % (0.0-8.0); NEUT % 66.6 % (16.0-70.0); PLATELET COUNT 119 TH/MM3 (150-450); RED BLOOD COUNT 4.15 MIL/MM3 (4.50-5.90); WHITE BLOOD COUNT 5.8 TH/MM3 (4.0-11.0)
[2017-03-23] MEDS: CARVEDILOL 12.5 MG TAB PO SCH ×2 (08:13→20:53)
[2017-03-23] MEDS: HALOPERIDOL 2 MG TAB PO SCH (08:13)
[2017-03-23] MEDS: FAMOTIDINE 20 MG TAB PO SCH ×2 (08:14→20:52)
[2017-03-23] MEDS: CHOLECALCIFEROL (VIT D3) 1000 UNIT TAB PO SCH (08:14)
[2017-03-23] MEDS: RANOLAZINE 500 MG EXTENDED RELEASE TAB PO SCH ×2 (08:14→20:53)
[2017-03-23 08:24] LABS: BICARBONATE 28.2 MEQ/L (21.0-32.0); POTASSIUM 4.4 MEQ/L (3.5-5.1)
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
[2017-03-23] MEDS ORDERED: LISINOPRIL 10 MG TAB PO SCH (09:00)
--- NOTE | 2017-03-23 16:40 | HHI.PYPN ---
Subjective Remarks Patient seen for follow-up, chart reviewed. As per admission report patient has been drinking more fluids, ate lunch progress and yesterday, he is reading was noted to be yelling God is good, God is great. Patient seen sitting on hospital bed noted to be calm and cooperative in interview. Patient states that he has been feeling fair and that he has been feeling better yesterday. Patient reports having minimal depressive symptom. When asked what contributed to his depressed mood he reports that he misses his home in [place]. Patient states that he had been living most of his life in [place] but but Mrs. his other home. Patient also states that he wishes he could ride motorcycle but due to his age it would be unsafe. When asked about his verbal outbursts last evening he states that he is aware that he was saying God is good, God is great and that he states that he feels close to God but that he knows that it is not time. Patient denies feeling distressed at that time. Patient denies any recent auditory hallucinations, denies any suicidal ideations. Review of Systems Except as stated in HPI: all other systems reviewed are Neg Objective Alert: Yes [place]: Person, Place [place] Mood: Other ("ok") Affect: Other (more reactive today) Memory Intact: Immediate, Recent Hallucinations: Auditory (denies at this time) Delusions: No Delusion Type: Other (denies at this time) Suicidal: Ideation (denies) Homicidal: Ideation (Negative) Insight/Judgment Limited insight, fair impulse control and judgment. Labs Test 03/23/17 07:25 White Blood Count 5.8 TH/MM3 Red Blood Count 4.15 MIL/MM3 Hemoglobin 13.1 GM/DL Hematocrit 39.3 % Mean Corpuscular Volume 94.7 FL Mean Corpuscular Hemoglobin 31.5 PG Mean Corpuscular Hemoglobin 33.3 % Concent Red Cell Distribution Width 14.0 % Platelet Count 119 TH/MM3 Mean Platelet Volume 8.6 FL Neutrophils (%) (Auto) 66.6 % Lymphocytes (%) (Auto) 22.2 % Monocytes (%) (Auto) 9.3 % Eosinophils (%) (Auto) 1.7 % Basophils (%) (Auto) 0.2 % Neutrophils # (Auto) 3.9 TH/MM3 Lymphocytes # (Auto) 1.3 TH/MM3 Monocytes # (Auto) 0.5 TH/MM3 Eosinophils # (Auto) 0.1 TH/MM3 Basophils # (Auto) 0.0 TH/MM3 CBC Comment DIFF FINAL Differential Comment Sodium Level 140 MEQ/L Potassium Level 4.4 MEQ/L Chloride Level 105 MEQ/L Carbon Dioxide Level 28.2 MEQ/L Anion Gap 7 MEQ/L Blood Urea Nitrogen 34 MG/DL Creatinine 2.05 MG/DL Estimat Glomerular Filtration 31 ML/MIN Rate Random Glucose 110 MG/DL Calcium Level 8.2 MG/DL Vitals/IOs Vital Signs Date Time Temp Pulse Resp B/P Pulse Ox O2 Delivery O2 Flow Rate FiO2 03/23/17 06:16 97.7 60 17 109/56 98 Intake and Output 03/22/17 03/22/17 03/23/17 08:00 16:00 00:00 Intake Total 50 ml 1440 ml 1200 ml Balance 50 ml 1440 ml 1200 ml Assessment & Plan Problem List: (1) Major depressive disorder, recurrent, severe with psychotic symptoms ICD Code: F33.3 Assessment & Plan Estimated LOS: 5-7 days. Patient at this time shows improvement in his mood, denies having suicidal ideations but continues to endorse feeling depressed. Patient denies any auditory hallucinations although patient may be minimizing as this verbal episode last evening may be due to response to internal stimuli although he denies at this time. Patient to continue current treatment. Patient encouraged to maintain good hygiene. Discharge planning in progress. Justification for Cont. Inpt. Patient at risk for decompensation if at a lower level of care Discharge Planning In progress Sal Louie MD Mar 23, 2017 16:39
[2017-03-23 18:54] VITALS: BP 165/73; PULSE 68; RESP 18; TEMP 97.5; O2SAT 98
[2017-03-23] MEDS: ATORVASTATIN 20 MG TAB PO SCH (20:52)
[2017-03-23] MEDS: MIRTAZAPINE 15 MG TAB PO SCH (20:53)
[2017-03-23] MEDS: HALOPERIDOL 5 MG TAB PO SCH (20:53)
[2017-03-23] MEDS: TAMSULOSIN HCL 0.4 MG CAP PO SCH (20:53)
[2017-03-24] MEDS: diphenhydrAMINE HCL 50 MG CAP PO PRN (00:36)
[2017-03-24] MEDS: hydrOXYzine HCL 50 MG TAB PO PRN (02:53)
[2017-03-24 06:07] VITALS: BP 153/70; PULSE 104; TEMP 97.8; O2SAT 98
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
--- NOTE | 2017-03-24 09:09 | HHI.PYPN ---
Subjective Remarks Patient seen and examined in weekend coverage with nurse. Chart reviewed. Case discussed with nursing staff reports the patient was no behavioral issues overnight. On my examination today, the patient complains of poor sleep. He also complains of a feeling of a muscle spasm in his hands and feet. His appetite is somewhat poor. No SI or HI. No marylu psychotic symptoms at this time. Denies side effects from medications. No other physical complaints. Review of Systems ROS Limitations: Poor Historian Except as stated in HPI: all other systems reviewed are Neg Objective Alert: Yes [place]: Person, Place Mood: Calm Affect: Blunted Memory Intact: Comment (not formally assessed) Hallucinations: Other (no AVH) Delusions: No Delusion Type: Other (none elicited) Suicidal: Ideation (no SI) Homicidal: Ideation (no HI) Insight/Judgment Poor Remarks Patient has a mild resting hand tremor. He also has mild cogwheeling. No evident dystonia, dyskinesia or hypomimia. Thought processes fairly linear. Grooming and hygiene fair. Labs Labs reviewed. No electrolyte abnormalities that might explain what sounds like dystonia in hands and feet. Vitals/IOs Vital Signs Date Time Temp Pulse Resp B/P Pulse Ox O2 Delivery O2 Flow Rate FiO2 03/24/17 06:07 97.8 104 153/70 98 03/23/17 18:54 18 Intake and Output 03/23/17 03/23/17 03/24/17 08:00 16:00 00:00 Intake Total 1 ml 960 ml 720 ml Output Total 1 ml Balance 0 ml 960 ml 720 ml Assessment & Plan Problem List: (1) Major depressive disorder, recurrent, severe with psychotic symptoms ICD Code: F33.3 Assessment & Plan For what sounds like dystonia of the hands and feet, possibly related to antipsychotic treatment, we will try Benadryl 25 mg by mouth once. If this is efficacious, we could consider adding a scheduled antihistamine or anticholinergic. I will continue the patient's Haldol and Remeron as ordered. Appreciate ongoing hospitalist input. Continue other medications and care as ordered. Justification for Cont. Inpt. High risk for decompensation in less restrictive environment. Discharge Planning Per Dr. Louie Request HC Surrog/Guard Advoc?: Yes Radames Ortez MD Mar 24, 2017 09:09
[2017-03-24] MEDS: RANOLAZINE 500 MG EXTENDED RELEASE TAB PO SCH ×2 (09:34→21:30)
[2017-03-24] MEDS: CHOLECALCIFEROL (VIT D3) 1000 UNIT TAB PO SCH (09:35)
[2017-03-24] MEDS: HALOPERIDOL 2 MG TAB PO SCH (09:35)
[2017-03-24] MEDS: FAMOTIDINE 20 MG TAB PO SCH ×2 (09:36→21:31)
[2017-03-24] MEDS: CARVEDILOL 12.5 MG TAB PO SCH ×2 (09:52→21:31)
[2017-03-24] MEDS ORDERED: diphenhydrAMINE HCL 25 MG CAP PO ONE (10:00)
[2017-03-24] MEDS: SODIUM CHLOR 0.45% 1000 ML INJ 1,000 ML IV SCH ×3 (10:00→21:30)
[2017-03-24 18:49] VITALS: BP_SYST 104; BP_SYST 132; BP_DIAS 52; BP_DIAS 64; PULSE 89; RESP 17; RESP 19; TEMP 97.6; O2SAT 97; O2SAT 98
[2017-03-24] MEDS: ATORVASTATIN 20 MG TAB PO SCH (21:30)
[2017-03-24] MEDS: HALOPERIDOL 5 MG TAB PO SCH (21:30)
[2017-03-24] MEDS: MIRTAZAPINE 15 MG TAB PO SCH (21:30)
[2017-03-24] MEDS: TAMSULOSIN HCL 0.4 MG CAP PO SCH (21:31)
[2017-03-24 22:19] LABS: BICARBONATE 29.3 MEQ/L (21.0-32.0); POTASSIUM 4.4 MEQ/L (3.5-5.1)
[2017-03-25 05:24] VITALS: BP 121/56; PULSE 59; RESP 17; TEMP 97.7; O2SAT 93
[2017-03-25] MEDS: CARVEDILOL 12.5 MG TAB PO SCH ×2 (08:24→20:59)
[2017-03-25] MEDS: HALOPERIDOL 2 MG TAB PO SCH (08:24)
[2017-03-25] MEDS: CHOLECALCIFEROL (VIT D3) 1000 UNIT TAB PO SCH (08:24)
[2017-03-25] MEDS: RANOLAZINE 500 MG EXTENDED RELEASE TAB PO SCH ×2 (08:24→20:58)
[2017-03-25] MEDS: SODIUM CHLOR 0.45% 1000 ML INJ 1,000 ML IV SCH ×2 (08:24→16:00)
[2017-03-25] MEDS: FAMOTIDINE 20 MG TAB PO SCH ×2 (08:24→20:58)
--- NOTE | 2017-03-25 11:09 | HHI.PYPN ---
Subjective Remarks Patient seen and examined with nurse. Chart reviewed. Case discussed with nursing staff who reports the patient has been guarded and reporting some auditory hallucinations. On my examination today, the patient presents as a little bit dysphoric. He endorses auditory hallucinations of "everything." Denies any SI or HI. Denies side effects from medications but is resistant to making a medication change today. No physical complaints. Says cramping sensation in hands and feet is improved. Review of Systems ROS Limitations: Psychotic, Poor Historian Except as stated in HPI: all other systems reviewed are Neg Objective Alert: Yes [place]: Person, Place Mood: Calm Affect: Blunted (mildly dysphoric) Memory Intact: Comment (not formally assessed) Hallucinations: Auditory (vague) Delusions: No Delusion Type: Other (no marylu delusions but perhaps some guardedness) Suicidal: Ideation (no SI) Homicidal: Ideation (no HI) Insight/Judgment Poor Remarks No motor abnormalities noted. Labs Test 03/24/17 21:25 Sodium Level 139 MEQ/L Potassium Level 4.4 MEQ/L Chloride Level 104 MEQ/L Carbon Dioxide Level 29.3 MEQ/L Anion Gap 6 MEQ/L Blood Urea Nitrogen 35 MG/DL Creatinine 2.02 MG/DL Estimat Glomerular Filtration 32 ML/MIN Rate Random Glucose 149 MG/DL Calcium Level 8.1 MG/DL Labs reviewed. Vitals/IOs Vital Signs Date Time Temp Pulse Resp B/P Pulse Ox O2 Delivery O2 Flow Rate FiO2 03/25/17 05:24 97.7 59 17 121/56 93 Intake and Output 03/24/17 03/24/17 03/25/17 08:00 16:00 00:00 Intake Total 720 ml 1680 ml Balance 720 ml 1680 ml Assessment & Plan Problem List: (1) Major depressive disorder, recurrent, severe with psychotic symptoms ICD Code: F33.3 Assessment & Plan Check another set of vitals. Continue current psychotropics as ordered. Appreciate hospitalist input. Continue other medications and care as ordered. Justification for Cont. Inpt. Risk for decompensation Discharge Planning Pending stabilization Request HC Surrog/Guard Advoc?: Yes Radames Ortez MD Mar 25, 2017 11:09
[2017-03-25 11:47] VITALS: BP 126/59; PULSE 60; RESP 16; TEMP 98; O2SAT 99
[2017-03-25] MEDS ORDERED: diphenhydrAMINE HCL 50 MG/ML VIAL ONE (12:17)
[2017-03-25] MEDS ORDERED: HALOPERIDOL LACTATE 5 MG/ML AMP IM ONE (12:30)
[2017-03-25] MEDS ORDERED: diphenhydrAMINE HCL 50 MG/ML VIAL IM ONE (12:30)
[2017-03-25 15:13] LABS: AUTOMATED NEUTROPHIL # 3.4 TH/MM3 (1.8-7.7); BASOPHIL % 0.1 % (0.0-2.0); EOSINOPHIL # 0.1 TH/MM3 (0-0.4); HEMATOCRIT 40.1 % (39.0-51.0); HEMO FLAGS DIFF FINAL; LYMPH % 25.6 % (9.0-44.0); LYMPHOCYTE # 1.4 TH/MM3 (1.0-4.8); MEAN CELL VOLUME 94.7 FL (80.0-100.0); MEAN CORPUSCULAR HEMOGLOBIN 31.6 PG (27.0-34.0); MEAN CORPUSCULAR HGB CONC 33.3 % (32.0-36.0); MONO % 9.2 % (0.0-8.0); NEUT % 63.1 % (16.0-70.0); PLATELET COUNT 142 TH/MM3 (150-450); RED BLOOD COUNT 4.23 MIL/MM3 (4.50-5.90); RED CELL DISTRIBUTION WIDTH 14.2 % (11.6-17.2); WHITE BLOOD COUNT 5.3 TH/MM3 (4.0-11.0)
[2017-03-25 15:37] LABS: BICARBONATE 27.1 MEQ/L (21.0-32.0); MAGNESIUM 2.2 MG/DL (1.5-2.5); POTASSIUM 4.7 MEQ/L (3.5-5.1)
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
[2017-03-25 18:37] VITALS: BP 141/64; PULSE 63; RESP 18; TEMP 97.7; O2SAT 94
[2017-03-25] MEDS: MAGNESIUM HYDROXIDE SUSP 30 ML CUP PO PRN (18:43)
[2017-03-25] MEDS: HALOPERIDOL 5 MG TAB PO SCH (20:58)
[2017-03-25] MEDS: ATORVASTATIN 20 MG TAB PO SCH (20:58)
[2017-03-25] MEDS: TAMSULOSIN HCL 0.4 MG CAP PO SCH (20:58)
[2017-03-25] MEDS: MIRTAZAPINE 15 MG TAB PO SCH (20:58)
[2017-03-26] MEDS: SODIUM CHLOR 0.45% 1000 ML INJ 1,000 ML IV SCH ×3 (02:00→22:00)
[2017-03-26 06:23] VITALS: BP 148/67; PULSE 80; RESP 18; TEMP 97.5; O2SAT 97
[2017-03-26] MEDS: RANOLAZINE 500 MG EXTENDED RELEASE TAB PO SCH ×2 (08:24→21:37)
[2017-03-26] MEDS: CHOLECALCIFEROL (VIT D3) 1000 UNIT TAB PO SCH (08:24)
[2017-03-26] MEDS: HALOPERIDOL 2 MG TAB PO SCH (08:24)
[2017-03-26] MEDS: FAMOTIDINE 20 MG TAB PO SCH ×2 (08:24→21:00)
[2017-03-26] MEDS: CARVEDILOL 12.5 MG TAB PO SCH ×2 (08:25→21:37)
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
[2017-03-26] MEDS ORDERED: LACTULOSE SYRUP 20 GM/30 ML CUP PO ONE (13:00)
[2017-03-26 13:32] LABS: BICARBONATE 25.5 MEQ/L (21.0-32.0); POTASSIUM 4.8 MEQ/L (3.5-5.1)
[2017-03-26 16:00] VITALS: BP 129/69; PULSE 61; RESP 18; TEMP 98.9; O2SAT 96
--- NOTE | 2017-03-26 16:46 | HHI.PYPN ---
Subjective Remarks Patient seen in his room with nurse Ron, patient calm cooperative male still somewhat sad mood it is improving his affect is somewhat improved. It appears had a good visit with his family yesterday and did not decompensate after they left. He is compliant medications. For now continue treatment Review of Systems Except as stated in HPI: all other systems reviewed are Neg Objective Alert: Yes [place]: Person, Place Mood: Calm Affect: Blunted (mildly dysphoric) Memory Intact: Comment (not formally assessed) Hallucinations: Auditory (vague) Delusions: No Delusion Type: Other (no marylu delusions but perhaps some guardedness) Suicidal: Ideation (no SI) Homicidal: Ideation (no HI) Insight/Judgment Poor Labs Test 03/26/17 11:31 Sodium Level 139 MEQ/L Potassium Level 4.8 MEQ/L Chloride Level 106 MEQ/L Carbon Dioxide Level 25.5 MEQ/L Anion Gap 8 MEQ/L Blood Urea Nitrogen 23 MG/DL Creatinine 1.53 MG/DL Estimat Glomerular Filtration 44 ML/MIN Rate Random Glucose 106 MG/DL Calcium Level 8.6 MG/DL Vitals/IOs Vital Signs Date Time Temp Pulse Resp B/P Pulse Ox O2 Delivery O2 Flow Rate FiO2 03/26/17 06:23 97.5 80 18 148/67 97 Intake and Output 03/25/17 03/25/17 03/26/17 08:00 16:00 00:00 Intake Total 1971 ml 720 ml 2009 ml Balance 1971 ml 720 ml 2009 ml Assessment & Plan Problem List: (1) Major depressive disorder, recurrent, severe with psychotic symptoms ICD Code: F33.3 Assessment & Plan Estimated LOS: days patient continues depressed but somewhat softer with slight increase in his affect. Denies suicidality. Compliant medications. Justification for Cont. Inpt. At this time patient may decompensate if not placed in an appropriate level of care Discharge Planning To be determined Request HC Surrog/Guard Advoc?: Yes Marcus Richards MD Mar 26, 2017 16:47
[2017-03-26] MEDS: LACTULOSE SYRUP 20 GM/30 ML CUP PO PRN (18:35)
[2017-03-26] MEDS: ATORVASTATIN 20 MG TAB PO SCH (21:37)
[2017-03-26] MEDS: MIRTAZAPINE 15 MG TAB PO SCH (21:37)
[2017-03-26] MEDS: TAMSULOSIN HCL 0.4 MG CAP PO SCH (21:37)
[2017-03-26] MEDS: HALOPERIDOL 5 MG TAB PO SCH (21:37)
[2017-03-26] MEDS ORDERED: MINERAL OIL ENEMA 118 ML BTL RECTAL ONE (22:15)
--- NOTE | 2017-03-26 22:43 | RADRPT ---
EXAM DATE/TIME: 03/26/2017 22:09 [facility] COMPARISON: No previous studies available for comparison. INDICATIONS : Obstruction. Constipation. MEDICAL HISTORY : Hypertension. SURGICAL HISTORY : Pacemaker. ENCOUNTER: Initial ACUITY: 4 - 6 days PAIN SCORE: 1/10 LOCATION: Bilateral abdomen FINDINGS: Supine view of the abdomen was performed. The abdominal bowel gas pattern is normal except for mild to moderate constipation. No abnormal masses, calcifications, or organomegaly is seen. The osseous structures are unremarkable.CONCLUSION: 1. No acute findings. Mild to moderate constipation. Degenerative change of the lumbar spine. Jamie Almanza MD on March 26, 2017 at 22:41 Board Certified Radiologist. This report was verified electronically.
[2017-03-27 05:12] VITALS: BP 179/77; PULSE 60; RESP 18; TEMP 97.1; O2SAT 96
[2017-03-27] MEDS: CARVEDILOL 12.5 MG TAB PO SCH ×2 (09:32→20:27)
[2017-03-27] MEDS: RANOLAZINE 500 MG EXTENDED RELEASE TAB PO SCH ×2 (09:32→20:27)
[2017-03-27] MEDS: CHOLECALCIFEROL (VIT D3) 1000 UNIT TAB PO SCH (09:32)
[2017-03-27] MEDS: FAMOTIDINE 20 MG TAB PO SCH ×2 (09:32→20:27)
[2017-03-27] MEDS: HALOPERIDOL 2 MG TAB PO SCH ×2 (09:32→20:26)
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
[2017-03-27] MEDS: SODIUM CHLOR 0.45% 1000 ML INJ 1,000 ML IV SCH ×2 (10:18→18:00)
--- NOTE | 2017-03-27 10:59 | HHI.PYPN ---
Subjective Remarks Patient seen for follow-up with nurse, chart reviewed. As per chart patient currently on IV fluids for decreased renal function is likely secondary to poor oral intake. As per follow-up yesterday patient had reported feeling depressed. As per nursing report patient continues to report feeling constipated, had abdominal x-ray which is being followed by medical team, currently on IV fluids patient had been eating and drinking, and also had been visited by family over the weekend. Patient found lying in hospital bed, and hospital gown, calm and cooperative in interview. Patient found with appropriate hygiene, clean-shaven, noted to be in good spirits. Patient states that he is currently feeling "better", although he does report continued depression but states that it's getting better. Patient also notes that he has been having difficulty sleeping at night. Patient encouraged continue by mouth nutrition and hydration which he states he will try to do today. Patient denies any auditory hallucinations states the last time he experienced this was a couple of days ago. At this time patient denies SI, HI, AVH or delusions. Review of Systems Constitutional: DENIES: Diaphoretic episodes, Fatigue, Fever, Weight gain, Weight loss, Chills, Dizziness, Change in appetite, Night Sweats Endocrine: DENIES: Heat/cold intolerance, Polydipsia, Polyuria, Polyphagia Eyes: DENIES: Blurred vision, Diplopia, Eye inflammation, Eye pain, Vision loss , Photosensitivity, Double Vision Ears, nose, mouth, throat: DENIES: Tinnitus, Hearing loss, Vertigo, Nasal discharge, Oral lesions, Throat pain, Hoarseness, Ear Pain, Running Nose, Epistaxis, Sinus Pain, Toothache, Odynophagia Respiratory: DENIES: Apneas, Cough, Snoring, Wheezing, Hemoptysis, Sputum production, Shortness of breath Cardiovascular: DENIES: Chest pain, Palpitations, Syncope, Dyspnea on Exertion , PND, Lower Extremity Edema, Orthopnea, Claudication Gastrointestinal: COMPLAINS OF: Constipation Genitourinary: DENIES: Sexual dysfunction, Urinary frequency, Urinary incontinence, Urgency, Hematuria, Dysuria, Nocturia, Penile Discharge, Testicular Pain, Testicular Swelling Musculoskeletal: DENIES: Joint pain, Muscle aches, Stiffness, Joint Swelling, Back pain, Neck pain Immunologic/allergic: DENIES: Eczema, Urticaria Psychiatric: DENIES: Anxiety, Confusion, Mood changes, Depression, Hallucinations, Agitation, Suicidal Ideation, Homicidal Ideation, Delusions Objective Alert: Yes [place]: Person, Place, Situation Mood: Calm Affect: Appropriate Memory Intact: Comment (not formally assessed) Hallucinations: Other (denies any auditory or visual hallucinations) Delusions: No Delusion Type: Other (none elicited) Suicidal: Ideation (no SI) Homicidal: Ideation (no HI) Insight/Judgment Improving insight, fair impulse control and judgment. Labs Test 03/26/17 11:31 Sodium Level 139 MEQ/L Potassium Level 4.8 MEQ/L Chloride Level 106 MEQ/L Carbon Dioxide Level 25.5 MEQ/L Anion Gap 8 MEQ/L Blood Urea Nitrogen 23 MG/DL Creatinine 1.53 MG/DL Estimat Glomerular Filtration 44 ML/MIN Rate Random Glucose 106 MG/DL Calcium Level 8.6 MG/DL Vitals/IOs Vital Signs Date Time Temp Pulse Resp B/P Pulse Ox O2 Delivery O2 Flow Rate FiO2 03/27/17 05:12 97.1 60 18 179/77 96 Intake and Output 03/26/17 03/26/17 03/27/17 08:00 16:00 00:00 Intake Total 2241 ml 600 ml 3251 ml Balance 2241 ml 600 ml 3251 ml Assessment & Plan Problem List: (1) Major depressive disorder, recurrent, severe with psychotic symptoms ICD Code: F33.3 Assessment & Plan Estimated LOS: 3-5 days. Patient at this time continues to endorse some depressive symptoms but it appears to be improving. Patient noted to have better hygiene, less anhedonia, noted to have more affect today. Patient denies any suicidality or any perceptual disturbances. Patient to continue hydration, oral intake and to continue recommendations as per primary medical team. Decrease haloperidol to 2 mg by mouth twice a day, continue mirtazapine 30 mg by mouth at bedtime. Patient continues to be encouraged to increase by mouth intake. Patient to participate in groups and activities as tolerated. Patient to continue to be monitored for medication response and possible adverse drug reactions. Discharge planning progress. Justification for Cont. Inpt. Patient at risk for decompensation at lower level of care Discharge Planning In progress Request HC Surrog/Guard Advoc?: Yes Sal Louie MD Mar 27, 2017 10:59
[2017-03-27] MEDS ORDERED: SOD PHOSPHATE/SOD BIPHOSPHATE (ADULT) ENEMA 133ML RECTAL PRN (11:45)
[2017-03-27 17:32] VITALS: BP 119/66; PULSE 60; RESP 18; TEMP 98.6; O2SAT 97
[2017-03-27] MEDS: MIRTAZAPINE 15 MG TAB PO SCH (20:26)
[2017-03-27] MEDS: TAMSULOSIN HCL 0.4 MG CAP PO SCH (20:27)
[2017-03-27] MEDS: ATORVASTATIN 20 MG TAB PO SCH (20:27)
[2017-03-28] MEDS: SODIUM CHLOR 0.45% 1000 ML INJ 1,000 ML IV SCH ×3 (03:31→22:38)
[2017-03-28 05:19] VITALS: BP 128/58; PULSE 60; RESP 18; TEMP 98.8; O2SAT 96
[2017-03-28] MEDS: CHOLECALCIFEROL (VIT D3) 1000 UNIT TAB PO SCH (09:00)
[2017-03-28] MEDS: CARVEDILOL 12.5 MG TAB PO SCH ×2 (09:00→21:37)
[2017-03-28] MEDS: FAMOTIDINE 20 MG TAB PO SCH ×2 (09:00→21:28)
[2017-03-28] MEDS: HALOPERIDOL 2 MG TAB PO SCH ×2 (09:00→21:29)
[2017-03-28] MEDS: RANOLAZINE 500 MG EXTENDED RELEASE TAB PO SCH ×2 (09:00→21:30)
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
--- NOTE | 2017-03-28 09:39 | HHI.PYPN ---
Subjective Remarks Patient seen for follow-up, chart reviewed. As per nursing report patient had an enema yesterday due to continue constipation, had bowel movement yesterday. Patient noted to be eating and drinking okay, and creatinine levels are trending down. Patient found sitting on a hospital chair in hospital gown, calm and cooperative in interview. Patient states that he had a "fair night" but that he has been noticing some slight stiffness in his hands and feet which worsened after hospitalization. Patient states having some difficulty during meals Bernardo to use his hands to eat which is been frustrating for him. Patient stated that he is been attempting to walk around the unit more, attending groups yesterday in the afternoon which she enjoyed. Patient plans on continuing attending groups and activities. Patient states that he's been trying to eat more but reports not having had a bowel movement despite having had enema states that he had only "smear" yesterday. Patient reports his mood as being "adequate", reports feeling a little sad due to wanting to go home. He denies any suicide ideations. Patient states that emotionally he feels ready to go home with a physically continues to feel that a week and staff. At this time patient denies SI, HI, AVH or delusions. Review of Systems Except as stated in HPI: all other systems reviewed are Neg Objective Alert: Yes [place]: Person, Place, Situation Mood: Calm Affect: Appropriate Memory Intact: Comment (not formally assessed) Hallucinations: Other (denies any auditory or visual hallucinations) Delusions: No Delusion Type: Other (none elicited) Suicidal: Ideation (no SI) Homicidal: Ideation (no HI) Insight/Judgment Improved insight, fair judgment and fair impulse control Vitals/IOs Vital Signs Date Time Temp Pulse Resp B/P Pulse Ox O2 Delivery O2 Flow Rate FiO2 03/28/17 05:19 98.8 60 18 128/58 96 Intake and Output 03/27/17 03/27/17 03/27/17 07:59 15:59 23:59 Intake Total 863 ml 960 ml 1560 ml Balance 863 ml 960 ml 1560 ml Assessment & Plan Problem List: (1) Major depressive disorder, recurrent, severe with psychotic symptoms ICD Code: F33.3 Assessment & Plan Estimated LOS: 3-5 days. Patient at this time appears to be improving, responding to current treatment. Patient no longer having suicidal ideations or perceptual disturbances but continues to be slightly depressed. Patient appears to be tolerating medication well aside from having some stiffness that is likely secondary to antipsychotic side effects. Add benztropine 0.5 by mouth twice a day for EPS. PT consult will be placed. Patient encouraged to continue current treatment and to participate in groups and activities. Continue haloperidol 2 mg by mouth twice a day, continue mirtazapine 30 mg by mouth at bedtime. Brief supportive psychotherapy provided. Continue to encourage oral intake and hydration. Discharge planning in progress Justification for Cont. Inpt. Patient at risk for decompensation at lower level care Discharge Planning In progress Request HC Surrog/Guard Advoc?: Yes Sal Louie MD Mar 28, 2017 09:39
--- NOTE | 2017-03-28 11:37 | PD.TTN ---
Present for Treatment Team Treatment Team Staff: Provider, Nurse, Psych Therapist, Occupational Therapist Patient Problems 1. Discharge planning 2. Medication compliance 3. Knowledge deficit 4. Lack of coping skills Progress Toward Goals Provider Input: Dr. Louie, patient has improved, continue to require a little more stablizating prior to dc back home, PT has been order/requested Nurse Input: Jeremy Bello RN, compliant with meds and treatment Psych Therapist Input: Counselor will set up appropriate outpatient service Occupational Therapist Input: GIGI Mathias, patient has improved since his admission, will possibly require/need home health/PT and OT at d/c Berta Lora [facility] Mar 28, 2017 11:37
[2017-03-28] MEDS: LACTULOSE SYRUP 20 GM/30 ML CUP PO PRN (14:30)
[2017-03-28] MEDS: MAGNESIUM HYDROXIDE SUSP 30 ML CUP PO PRN (14:30)
[2017-03-28 17:45] VITALS: BP 110/55; PULSE 63; RESP 18
[2017-03-28 18:15] VITALS: BP 110/55; PULSE 63; RESP 18; TEMP 98.7
[2017-03-28] MEDS: ATORVASTATIN 20 MG TAB PO SCH (21:26)
[2017-03-28] MEDS: BENZTROPINE MESYLATE 1 MG TAB PO SCH (21:27)
[2017-03-28] MEDS: MIRTAZAPINE 15 MG TAB PO SCH (21:29)
[2017-03-28] MEDS: TAMSULOSIN HCL 0.4 MG CAP PO SCH (21:29)
[2017-03-29 05:40] VITALS: BP 110/55; PULSE 60; RESP 18; TEMP 97.9; O2SAT 94
[2017-03-29] MEDS ORDERED: BISACODYL 10 MG SUPP RECTAL ONE (08:30)
[2017-03-29] MEDS: CHOLECALCIFEROL (VIT D3) 1000 UNIT TAB PO SCH (09:58)
[2017-03-29] MEDS: HALOPERIDOL 2 MG TAB PO SCH ×2 (09:58→20:30)
[2017-03-29] MEDS: CARVEDILOL 12.5 MG TAB PO SCH ×2 (09:59→20:30)
[2017-03-29] MEDS: FAMOTIDINE 20 MG TAB PO SCH ×2 (09:59→20:34)
[2017-03-29] MEDS: RANOLAZINE 500 MG EXTENDED RELEASE TAB PO SCH ×2 (09:59→20:30)
[2017-03-29] MEDS: LACTULOSE SYRUP 20 GM/30 ML CUP PO PRN (09:59)
[2017-03-29] MEDS: MAGNESIUM HYDROXIDE SUSP 30 ML CUP PO PRN (09:59)
[2017-03-29] MEDS: SODIUM CHLOR 0.45% 1000 ML INJ 1,000 ML IV SCH ×2 (10:51→20:29)
--- NOTE | 2017-03-29 12:43 | HHI.PYPN ---
Subjective Remarks Patient seen for follow-up, chart reviewed. As per nursing report patient continues to be constipated and is continuing to be followed by primary medical team. Patient found sitting in a hospital chair noted to be calm and cooperative in interview. Patient states that he has been feeling "half and half" states that he is feeling much better and feels that he is "progressing" as he continues to be more active and walking around the unit. Patient continues to report having some difficulty with feeding himself in and that he feels some stiffness in his hands. Patient was started on mirtazapine 0.5 at bedtime last evening and states that it has been helping a little. Patient reports that he is looking forward to going home soon stating that his needs him and that he needs her. Currently patient reports his mood being "upscale" and has hopes continue doing better. He continues to report brief episodes of auditory hallucinations which last seconds and usually occur in the morning. Patient plans on participating in groups and activities. Today. Review of Systems Except as stated in HPI: all other systems reviewed are Neg Objective Alert: Yes [place]: Person, Place, Situation Mood: Calm ("upscale") Affect: Appropriate Memory Intact: Comment (not formally assessed) Hallucinations: Other (denies any auditory or visual hallucinations at time of interview) Delusions: No Delusion Type: Other (none elicited) Suicidal: Ideation (no SI) Homicidal: Ideation (no HI) Insight/Judgment Improved insight, fair impulse control and judgment Vitals/IOs Vital Signs Date Time Temp Pulse Resp B/P Pulse Ox O2 Delivery O2 Flow Rate FiO2 03/29/17 05:40 97.9 60 18 110/55 94 Intake and Output 03/28/17 03/28/17 03/29/17 08:00 16:00 00:00 Intake Total 120 ml 960 ml 1800 ml Balance 120 ml 960 ml 1800 ml Assessment & Plan Problem List: (1) Major depressive disorder, recurrent, severe with psychotic symptoms ICD Code: F33.3 Assessment & Plan Patient at this time with improved mood, denies any suicidal ideations, but continues to have some auditory hallucinations which are brief in duration and occurring in the morning only. Patient tolerating medications well but endorses some stiffness which she is now having some difficulty utilizing his hands to eat. Stiffness may be related to side effects from neuroleptics which patient was admitted last evening with some partial response. Patient will be continued on same dose of Cogentin for now. Patient to continue haloperidol 2 mg by mouth twice a day for psychotic symptoms. Continue mirtazapine 30 mg at bedtime for depression. Monitor for medication response and possible adverse drug reactions. Medical recommendations as per primary medical team. Encourage by mouth fluid intake. OT consult placed. Discharge planning in progress Justification for Cont. Inpt. Patient at risk for decompensation if it lower level of care Discharge Planning In progress Request HC Surrog/Guard Advoc?: Yes Sal Louie MD Mar 29, 2017 12:43
[2017-03-29 14:20] VITALS: BP 97/55; PULSE 60
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
[2017-03-29] MEDS ORDERED: PEG (High)/E-LYTE SOLN 4000 ML BTL PO ONE (16:45)
--- NOTE | 2017-03-29 17:43 | PD.CONS ---
HPI History of Present Illness This is a 82 year old male patient who is on psych floor for psychosis. He is reporting abdominal discomfort on left lower quadrant. He cannot remember when he had his last BM. He feels constipated. He is refusing to take his go lytely ordered by Hospitalist. He feels very full from 5 doses of laxatives today and does not want to take more. No vomiting reported. His nurse says he gets confused and grumpy in the evenings and may be more agreeable to laxatives tomorrow. He does not report any blood per rectum. He has been straining to move bowels. History is difficult due to his psych illness. ROS: Pt does not report any fever, chills, rash, or chest pains. Nurses do not report symptoms either. PFSH Past Medical History CAD Hypertension Past Surgical History CABG Appy Coded Allergies: Adhesives (Verified Allergy, Severe, 03/11/17) Medications Active Medications Benztropine Mesylate (Cogentin) 0.5 mg HS PO Last administered on 03/28/17 21:27 ; Admin Dose 0.5 MG; Start 03/28/17 at 21:00 Bisacodyl (Dulcolax Supp) 10 mg DAILY RECTAL; Start 03/30/17 at 09:00 Bisacodyl (Dulcolax Supp) 10 mg ONCE ONCE RECTAL Last administered on 10:00; Admin Dose 10 MG; Start 03/29/17 at 08:30; Stop 03/29/17 at 08:31; Status DC Polyethylene Glycol/ Electrolytes (Colyte Liq) 4,000 ml ONCE ONCE PO; Start 06/05 at 16:45; Stop 03/29/17 at 16:46; Status DC Social History GI Exam Vitals I&O Vital Signs Date Time Temp Pulse Resp B/P Pulse Ox O2 Delivery O2 Flow Rate FiO2 03/29/17 14:20 60 97/55 03/29/17 05:40 97.9 60 18 110/55 94 03/28/17 18:15 98.7 63 18 110/55 03/28/17 17:45 63 18 110/55 I/O 03/28/17 03/28/17 03/28/17 03/29/17 03/29/17 03/29/17 07:00 15:00 23:00 07:00 15:00 23:00 Intake Total 180 ml 960 ml 1800 ml 120 ml 1440 ml Balance 180 ml 960 ml 1800 ml 120 ml 1440 ml Intake Oral 180 ml 960 ml 1800 ml 120 ml 1440 ml # Voids 3 2 1 Physical Examination HEENT: Pupils round and reactive to light; normocephalic; atraumatic; no jaundice. Throat is clear. NECK: Neck is supple, no JVD, no lymphadenopathy. CHEST: Chest is clear to auscultation and percussion. CARDIAC: Regular rate and rhythm with no murmur gallop or rubs. ABDOMEN: Soft, nondistended, nontender; no hepatosplenomegaly; bowel sounds are present in all four quadrants. EXTREMITIES: No clubbing, cyanosis, or edema. SKIN: Normal; no rash; no jaundice. PHARMACY ORDER ENTRY TECHNICIAN: No focal deficits; alert and oriented times three. Assessment and Plan Plan Imp: Constipation, becoming severe. I have reviewed the Xray done today and there is no evidence of obstruction. No symptoms of obstruction at present. Plan: Change to miralax that tastes better and can be mixed into his lemonade. Clear liquid diet until he begins to move bowels. If abdominal pain becomes more severe he will need CT scan abdomen and pelvis. Avoid stimulant laxatives such as dulcolax. Sreekanth Gorman MD Mar 29, 2017 17:43
[2017-03-29 18:10] VITALS: BP 99/51; PULSE 63; RESP 19; TEMP 97.2; O2SAT 96
[2017-03-29] MEDS: ATORVASTATIN 20 MG TAB PO SCH (20:29)
[2017-03-29] MEDS: TAMSULOSIN HCL 0.4 MG CAP PO SCH (20:30)
[2017-03-29] MEDS: MIRTAZAPINE 15 MG TAB PO SCH (20:30)
[2017-03-29] MEDS: BENZTROPINE MESYLATE 1 MG TAB PO SCH (20:30)
[2017-03-30 01:30] VITALS: BP 98/65; PULSE 65; RESP 20; TEMP 98.5
[2017-03-30] MEDS: SODIUM CHLOR 0.45% 1000 ML INJ 1,000 ML IV SCH ×3 (05:02→23:41)
[2017-03-30] MEDS ORDERED: SODIUM CHLOR 0.9% 250 ML INJ 250 ML IV ONE (06:45)
[2017-03-30] MEDS: RANOLAZINE 500 MG EXTENDED RELEASE TAB PO SCH ×2 (08:47→21:56)
[2017-03-30] MEDS: CHOLECALCIFEROL (VIT D3) 1000 UNIT TAB PO SCH (08:47)
[2017-03-30] MEDS: HALOPERIDOL 2 MG TAB PO SCH ×2 (08:48→21:56)
[2017-03-30] MEDS: BISACODYL 10 MG SUPP RECTAL SCH (08:48)
[2017-03-30] MEDS: POLYETHYLENE GLYCOL 17 GM PKG PO SCH ×8 (08:48→15:00)
[2017-03-30] MEDS: FAMOTIDINE 20 MG TAB PO SCH ×2 (08:48→21:56)
[2017-03-30] MEDS: CARVEDILOL 12.5 MG TAB PO SCH ×2 (08:49→21:55)
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
--- NOTE | 2017-03-30 16:50 | HHI.PYPN ---
Subjective Remarks Patient seen for follow up, chart reviewed. After discussion with nursing staff , patient had a bowel movement this morning. Patient yesterday continue to had reporting having difficulty passing stool and yesterday afternoon while attempting to have a bowel movement patient reported having a lot of pain due to his hemorrhoids when attempting to have a bowel movement yesterday which he lowered himself to the floor due to the pain and denied feeling dizzy or lightheaded during this episode. Recommendations as per primary medical team were put in place for likely intractable constipation along with GI consult for the same. Patient seen this morning in hospital bed, calm and cooperative in interview. Patient reported having had about Kelley's morning insulin slightly better. He states that his mood has been "fair" the had some difficulty sleeping last evening patient states that last night he was having dreams about family members. Patient continues to report some auditory hallucinations "a little bit" which occur throughout the day but denies it being distressing. Patient states that his mood has improved and would like to be going home soon but feels that physically he is a little weak. Patient reports that he is continues have having some stiffness in his hands and make which makes it difficult for him to eat. At this time patient denies SI, HI, AVH or delusions. Review of Systems Except as stated in HPI: all other systems reviewed are Neg Objective Alert: Yes [place]: Person, Place, Situation Mood: Calm ("fair") Affect: Other (slightly dysthymic) Memory Intact: Comment (not formally assessed) Hallucinations: Other (denies any auditory or visual hallucinations at time of interview) Delusions: No Delusion Type: Other (none elicited) Suicidal: Ideation (no SI) Homicidal: Ideation (no HI) Insight/Judgment Fair insight, impulse control and judgment Remarks Patient appears younger than stated age, in hospital gown, found lying in hospital bed, calm and cooperative in interview. Her eye contact, speech normal rate tone and prosody, and Teresa fluent and spontaneous. Thought process is linear and goal oriented, thought content denies SI, HI, AVH or delusions. Vitals/IOs Vital signs reviewed. Vital Signs Date Time Temp Pulse Resp B/P Pulse Ox O2 Delivery O2 Flow Rate FiO2 03/30/17 01:30 98.5 65 20 98/65 03/29/17 18:10 96 Intake and Output 03/29/17 03/29/17 03/29/17 07:59 15:59 23:59 Intake Total 120 ml 1440 ml 1563 ml Balance 120 ml 1440 ml 1563 ml Assessment & Plan Problem List: (1) Major depressive disorder, recurrent, severe with psychotic symptoms ICD Code: F33.3 Assessment & Plan Patient at this time continues to endorse minimal auditory hallucinations but continues to be present, reports improved mood but today states that he didn't feel as well as yesterday. Patient continues to have constipation and currently being managed by primary medical team. Due to patient's stepfather that her probable due to antipsychotic adverse effects patient he will be increased 0.5 by mouth twice a day for EPS. Patient to continue on Haldol 2 mg by mouth twice a day for psychotic symptoms. Patient to continue on mirtazapine 30 mg by mouth at bedtime for depression. Patient to continue recommendations as per primary medical team. Continue to monitor for medication response and possible adverse drug reactions. Fall precautions. Supportive psychotherapy provided. Discharge planning in progress Justification for Cont. Inpt. Patient risk for further decompensation if a lower level of care Discharge Planning In progress Request HC Surrog/Guard Advoc?: Yes Sal Louie MD Mar 30, 2017 16:50
--- NOTE | 2017-03-30 16:52 | HHI.GIFU ---
Subjective Remarks Pt had mult liquid stools. C/o worse LLQ pain. Does not want to eat. Objective Vitals I&O Vital Signs Date Time Temp Pulse Resp B/P Pulse Ox O2 Delivery O2 Flow Rate FiO2 03/30/17 01:30 98.5 65 20 98/65 03/29/17 18:10 97.2 63 19 99/51 96 I/O 03/29/17 03/29/17 03/29/17 03/30/17 03/30/17 03/30/17 06:59 14:59 22:59 06:59 14:59 22:59 Intake Total 120 ml 1440 ml 1563 ml 120 ml 420 ml Balance 120 ml 1440 ml 1563 ml 120 ml 420 ml Intake Oral 120 ml 1440 ml 480 ml 120 ml 420 ml IV Total 1083 ml # Voids 1 1 # Bowel Movements 1 3 Imaging Last Impressions Abdomen X-Ray 03/26/17 0000 Signed Impressions: Service Date/Time: Sunday, March 26, 2017 22:09 - CONCLUSION: 1. No acute findings. Mild to moderate constipation. Degenerative change of the lumbar spine. Jamie Almanza MD Renal Ultrasound 03/16/17 0000 Signed Impressions: Service Date/Time: Thursday, March 16, 2017 19:01 - CONCLUSION: 1. Right kidney not visualized. Mildly atrophic left kidney without hydronephrosis. Jamie Almanza MD Head CT 03/15/17 0000 Signed Impressions: Service Date/Time: February 10:13 - CONCLUSION: 1. Cerebral atrophy. 2. No acute infarct, acute hemorrhage, mass effect or extra-axial fluid collections. Daniel Elizondo MD Physical Exam HEENT: PERRL; normocephalic; atraumatic; no jaundice. CHEST: CTA CARDIAC: RRR ABDOMEN: Soft, protuberant, LLQ TTP; no hepatosplenomegaly; bowel sounds are present in all four quadrants. EXTREMITIES: No clubbing, cyanosis, or edema. SKIN: Normal; no rash; no jaundice. PLATING EQUIPMENT TENDER: lethargic Assessment and Plan Plan Imp: - Constipation - improving. xray with no evidence obstruction. pt received bowel regimen, + BM - abd pain - LLQ pain, persistent and not relieved with BM. will get CT - rectal burning - pt c/o hemorrhoid pain and rectal burning after having so much liquid stool Plan: - miralax daily - CT abd - anusol - KAREN - supportive care THIs pt seen by myself and Dr Gorman and this note is written on his behalf Geneva Yao Mar 30, 2017 16:52
[2017-03-30 18:21] VITALS: BP 98/44; PULSE 60; RESP 18; TEMP 99; O2SAT 95
[2017-03-30] MEDS ORDERED: DIATRIZOATE MEGLUM/DIATRIZOATE SOD 9 ML CUP PO ONE (19:30)
[2017-03-30] MEDS: HYDROCORTISONE ACETATE 25 MG SUPP RECTAL SCH (21:00)
--- NOTE | 2017-03-30 21:24 | RADRPT ---
EXAM DATE/TIME: 03/30/2017 20:07 [place] COMPARISON: No previous studies available for comparison. INDICATIONS : Diffuse abdomen pain. ORAL CONTRAST: Prescribed oral contrast ingested. RADIATION DOSE: 16.49 CTDIvol (mGy) MEDICAL HISTORY : Hypertension. SURGICAL HISTORY : Pacemaker. ENCOUNTER: Initial ACUITY: 4 - 6 days PAIN SCALE: 4/10 LOCATION: Bilateral upper quadrant TECHNIQUE: Volumetric scanning of the abdomen and pelvis was performed. Using automated exposure control and ad justment of the mA and/or kV according to patient size, radiation dose was kept as low as reasonably achievable to obtain optimal diagnostic quality images. DICOM format image data is available electro nically for review and comparison. FINDINGS: Lung base is are clear. There is acute finding in the liver, spleen, adrenals, left kidney or pancrea s. The pancreas is fatty replaced. No calcified gallstones or biliary ductal dilatation. There is a pelvic right-sided kidney with numerous calculi in the lower pole. No evidence for obstruc tive uropathy in the right kidney. The right kidney is atrophic. There are some nonspecific inflammatory or edematous changes in the left lower quadrant. There are fa irly close to the left colon but no associated diverticulum is seen to suggest diverticulitis althoug h this cannot be excluded. There is mild constipation. No acute bony abnormalities are identified. CONCLUSION: 1. Nonspecific inflammatory or edematous changes in the left lower quadrant close to the adjacent col on but without visible diverticulum. Cannot exclude diverticulitis but no evidence for abscess, obstr uction. There is mild constipation. 2. 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 3. Pacer leads in right atrium and right ventricle. 4. Small hiatal hernia. Jamie Almanza MD on March 30, 2017 at 21:15 Board Certified Radiologist. This report was verified electronically.
[2017-03-30] MEDS: TAMSULOSIN HCL 0.4 MG CAP PO SCH (21:55)
[2017-03-30] MEDS: MIRTAZAPINE 15 MG TAB PO SCH (21:56)
[2017-03-30] MEDS: ATORVASTATIN 20 MG TAB PO SCH (21:56)
[2017-03-30] MEDS: BENZTROPINE MESYLATE 1 MG TAB PO SCH (21:56)
[2017-03-31 05:19] VITALS: BP 101/49; PULSE 59; RESP 16; TEMP 98.8
[2017-03-31] MEDS: CARVEDILOL 12.5 MG TAB PO SCH ×2 (08:11→21:00)
[2017-03-31] MEDS: HYDROCORTISONE ACETATE 25 MG SUPP RECTAL SCH ×2 (09:00→21:00)
[2017-03-31] MEDS ORDERED: POLYETHYLENE GLYCOL 17 GM PKG PO SCH (09:00)
[2017-03-31] MEDS: BISACODYL 10 MG SUPP RECTAL SCH (09:00)
[2017-03-31] MEDS: FAMOTIDINE 20 MG TAB PO SCH ×2 (09:00→21:00)
[2017-03-31] MEDS: BENZTROPINE MESYLATE 1 MG TAB PO SCH ×2 (09:00→21:00)
[2017-03-31] MEDS: CHOLECALCIFEROL (VIT D3) 1000 UNIT TAB PO SCH (09:00)
[2017-03-31] MEDS: POLYETHYLENE GLYCOL 17 GM PKG PO SCH ×4 (09:00→13:00)
[2017-03-31] MEDS: RANOLAZINE 500 MG EXTENDED RELEASE TAB PO SCH ×2 (09:00→21:00)
[2017-03-31] MEDS: HALOPERIDOL 2 MG TAB PO SCH ×2 (09:00→21:00)
--- NOTE | 2017-03-31 11:04 | HHI.PYPN ---
Subjective Remarks Patient Cara, chart review. As discussion with nursing staff patient has occasional episodes of dizziness but. The look better. Patient found in hospital bed found watching television and, cooperative in interview. Patient states that since yesterday he has been going a lot to the bathroom which is been having several bowel movements which she is pleased about. Patient stated that his mood has been "better" but continues to feel that he is not ready to do his physical weakness. Patient continues to report endorse minimal auditory hallucinations that last about 30 minutes and her "far away". Patient is hopeful that he will return back home soon but knows that he needs to get "stronger". Discussion with the possibility of patient being discharged to a rehabilitation program was reviewed with patient which he acknowledges and agrees. Patient at this time denies SI, HI, AVH or delusions at time of interview. Review of Systems Except as stated in HPI: all other systems reviewed are Neg Objective Alert: Yes [place]: Person, Place, Situation Mood: Calm ("fair") Affect: Appropriate Memory Intact: Comment (not formally assessed) Hallucinations: Other (denies any auditory or visual hallucinations at time of interview) Delusions: No Delusion Type: Other (none elicited) Suicidal: Ideation (no SI) Homicidal: Ideation (no HI) Insight/Judgment Improved insight, fair impulse control and judgment Vitals/IOs Vital Signs Date Time Temp Pulse Resp B/P Pulse Ox O2 Delivery O2 Flow Rate FiO2 03/31/17 05:19 98.8 59 16 101/49 03/30/17 18:21 95 Intake and Output 03/30/17 03/30/17 03/31/17 08:00 16:00 00:00 Intake Total 120 ml 420 ml 480 ml Balance 120 ml 420 ml 480 ml Assessment & Plan Problem List: (1) Major depressive disorder, recurrent, severe with psychotic symptoms ICD Code: F33.3 Assessment & Plan Patient continues to be noted to have improved mood, denying suicidality but continues to endorse minimal auditory hallucinations which are non-distressful and short duration. Patient now having bowel movements and allow her constipated. Consult input appreciated. Patient continues to work with physical therapy while on the unit will likely require rehabilitation post discharge. Patient to continue current treatment, monitor for medication response and possible adverse drug reactions. Supportive psychotherapy provided. Discharge planning in progress Justification for Cont. Inpt. Patient at risk for further decompensation if at lower level of care Discharge Planning In progress Request HC Surrog/Guard Advoc?: Yes Sal Louie MD Mar 31, 2017 11:04
[2017-03-31] MEDS: SODIUM CHLOR 0.45% 1000 ML INJ 1,000 ML IV SCH ×2 (12:00→22:00)
--- NOTE | 2017-03-31 12:29 | HHI.GIFU ---
Subjective Remarks Pt resting in bed, says his LLQ pain is improved. Mult loose BM last night per pt. (Geneva Yao) Objective Vitals I&O Vital Signs Date Time Temp Pulse Resp B/P Pulse Ox O2 Delivery O2 Flow Rate FiO2 03/31/17 05:19 98.8 59 16 101/49 03/30/17 18:21 99.0 60 18 98/44 95 I/O 03/30/17 03/30/17 03/30/17 03/31/17 03/31/17 03/31/17 06:59 14:59 22:59 06:59 14:59 22:59 Intake Total 120 ml 420 ml 480 ml 2916 ml 600 ml Balance 120 ml 420 ml 480 ml 2916 ml 600 ml Intake Oral 120 ml 420 ml 480 ml 120 ml 600 ml IV Total 2796 ml # Voids 1 1 0 # Bowel Movements 3 4 6 Imaging Last Impressions Abdomen/Pelvis CT 03/30/17 1920 Signed Impressions: Service Date/Time: Thursday, March 30, 2017 20:07 - CONCLUSION: 1. Nonspecific inflammatory or edematous changes in the left lower quadrant close to the adjacent colon but without visible diverticulum. Cannot exclude diverticulitis but no evidence for abscess, obstruction. There is mild constipation. 2. 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 3. Pacer leads in right atrium and right ventricle. 4. Small hiatal hernia. Jamie Almanza MD Abdomen X-Ray 03/26/17 0000 Signed Impressions: Service Date/Time: Sunday, March 26, 2017 22:09 - CONCLUSION: 1. No acute findings. Mild to moderate constipation. Degenerative change of the lumbar spine. Jamie Almanza MD Renal Ultrasound 03/16/17 0000 Signed Impressions: Service Date/Time: Thursday, March 16, 2017 19:01 - CONCLUSION: 1. Right kidney not visualized. Mildly atrophic left kidney without hydronephrosis. Jamie Almanza MD Head CT 03/15/17 0000 Signed Impressions: Service Date/Time: February 10:13 - CONCLUSION: 1. Cerebral atrophy. 2. No acute infarct, acute hemorrhage, mass effect or extra-axial fluid collections. Daniel Elizondo MD Physical Exam HEENT: PERRL; normocephalic; atraumatic; no jaundice. CHEST: CTA CARDIAC: RRR ABDOMEN: Soft, protuberant, mild LLQ TTP; no hepatosplenomegaly; bowel sounds are present in all four quadrants. EXTREMITIES: No clubbing, cyanosis, or edema. SKIN: Normal; no rash; no jaundice. PIANO INSTRUCTOR: alert (Geneva Yao) Assessment and Plan Plan Imp: - Constipation - improving. xray with no evidence obstruction. pt received bowel regimen, + BM - abd pain - LLQ pain, persistent and not relieved with BM. CT 03-30-17--> 1. Nonspecific inflammatory or edematous changes in the left lower quadrant close to the adjacent colon but without visible diverticulum. Cannot exclude diverticulitis but no evidence for abscess, obstruction. There is mild constipation. WBC wnl, afebrile. - rectal burning - pt c/o hemorrhoid pain and rectal burning after having so much liquid stool Plan: - miralax daily - anusol - clears - supportive care THIs pt seen by myself and Dr Mixon and this note is written on his behalf ( Geneva Yao) Plan Patient was seen and examined, and agree with the above-noted complaint, patient will need a colonoscopy as an outpatient, he can follow in the clinic in few weeks, seems his constipation resolved, we'll follow up as needed. ( Garrett Mixon MD) Geneva Yao Mar 31, 2017 12:29 Garrett Mixon MD Mar 31, 2017 14:00
[2017-03-31 18:12] VITALS: BP 80/40; TEMP 100.9
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
[2017-03-31] MEDS ORDERED: SODIUM CHLOR 0.9% 1000 ML INJ 1,000 ML IV ONE (20:00)
[2017-03-31 20:07] LABS: AUTOMATED NEUTROPHIL # 7.3 TH/MM3 (1.8-7.7); BASOPHIL % 0.1 % (0.0-2.0); HEMATOCRIT 30.8 % (39.0-51.0); HEMO FLAGS DIFF FINAL; LYMPH % 7.3 % (9.0-44.0); LYMPHOCYTE # 0.7 TH/MM3 (1.0-4.8); MEAN CELL VOLUME 94.5 FL (80.0-100.0); MEAN CORPUSCULAR HGB CONC 33.9 % (32.0-36.0); MONO % 12.8 % (0.0-8.0); NEUT % 79.8 % (16.0-70.0); PLATELET COUNT 120 TH/MM3 (150-450); RED BLOOD COUNT 3.26 MIL/MM3 (4.50-5.90); RED CELL DISTRIBUTION WIDTH 14.1 % (11.6-17.2); WHITE BLOOD COUNT 9.1 TH/MM3 (4.0-11.0)
[2017-03-31 20:27] VITALS: BP 97/58; PULSE 65
[2017-03-31 20:30] LABS: BICARBONATE 21.2 MEQ/L (21.0-32.0); POTASSIUM 4.3 MEQ/L (3.5-5.1)
[2017-03-31 20:59] LABS: CALCIUM-PROTEIN CORRECTED 8.2 MG/DL (8.5-10.1)
[2017-03-31] MEDS: MIRTAZAPINE 15 MG TAB PO SCH (21:00)
[2017-03-31] MEDS: ATORVASTATIN 20 MG TAB PO SCH (21:00)
[2017-03-31] MEDS: TAMSULOSIN HCL 0.4 MG CAP PO SCH (21:00)
[2017-04-01] VITALS: BP 111/50
[2017-04-01 05:18] VITALS: BP 111/53; PULSE 60; RESP 18; TEMP 98.1; O2SAT 97
[2017-04-01] MEDS ORDERED: SODIUM CHLOR 0.9% 1000 ML INJ 1,000 ML IV SCH (06:45)
[2017-04-01] MEDS: CARVEDILOL 12.5 MG TAB PO SCH (08:37)
[2017-04-01] MEDS: FAMOTIDINE 20 MG TAB PO SCH ×2 (08:38→22:26)
[2017-04-01] MEDS: CHOLECALCIFEROL (VIT D3) 1000 UNIT TAB PO SCH (08:38)
[2017-04-01] MEDS: HALOPERIDOL 2 MG TAB PO SCH (08:38)
[2017-04-01] MEDS: BISACODYL 10 MG SUPP RECTAL SCH (08:38)
[2017-04-01] MEDS: BENZTROPINE MESYLATE 1 MG TAB PO SCH (08:38)
[2017-04-01] MEDS: HYDROCORTISONE ACETATE 25 MG SUPP RECTAL SCH ×2 (08:38→21:00)
[2017-04-01] MEDS: RANOLAZINE 500 MG EXTENDED RELEASE TAB PO SCH ×2 (08:38→22:26)
[2017-04-01 09:44] VITALS: BP 109/53; PULSE 60; RESP 18; O2SAT 99
--- NOTE | 2017-04-01 09:54 | HHI.GIFU ---
Subjective Remarks No new complaints (Emilia Villa) Objective Vitals I&O Vital Signs Date Time Temp Pulse Resp B/P Pulse Ox O2 Delivery O2 Flow Rate FiO2 04/01/17 05:18 98.1 60 18 111/53 97 04/01/17 00:00 111/50 03/31/17 20:27 65 97/58 03/31/17 18:12 100.9 80/40 I/O 03/31/17 03/31/17 03/31/17 04/01/17 04/01/17 04/01/17 07:00 15:00 23:00 07:00 15:00 23:00 Intake Total 2916 ml 600 ml 840 ml 3832 ml 25 ml Output Total 2 ml Balance 2916 ml 600 ml 840 ml 3830 ml 25 ml Intake Oral 120 ml 600 ml 840 ml 3832 ml 25 ml IV Total 2796 ml Stool Total 2 ml # Voids 0 2 # Bowel Movements 6 Laboratory Laboratory Tests Test 03/31/17 18:45 White Blood Count 9.1 Red Blood Count 3.26 Hemoglobin 10.4 Hematocrit 30.8 Mean Corpuscular Volume 94.5 Mean Corpuscular Hemoglobin 32.0 Mean Corpuscular Hemoglobin 33.9 Concent Red Cell Distribution Width 14.1 Platelet Count 120 Mean Platelet Volume 8.5 Neutrophils (%) (Auto) 79.8 Lymphocytes (%) (Auto) 7.3 Monocytes (%) (Auto) 12.8 Eosinophils (%) (Auto) 0.0 Basophils (%) (Auto) 0.1 Neutrophils # (Auto) 7.3 Lymphocytes # (Auto) 0.7 Monocytes # (Auto) 1.2 Eosinophils # (Auto) 0.0 Basophils # (Auto) 0.0 CBC Comment DIFF FINAL Differential Comment Sodium Level 129 Potassium Level 4.3 Chloride Level 98 Carbon Dioxide Level 21.2 Anion Gap 10 Blood Urea Nitrogen 62 Creatinine 3.37 Estimat Glomerular Filtration 18 Rate Random Glucose 104 Calcium Level 7.3 Protein Corrected Calcium 8.2 Total Protein 5.4 Imaging Last Impressions Abdomen/Pelvis CT 03/30/171919 Signed Impressions: Service Date/Time: Thursday, March 30, 2017 20:07 - CONCLUSION: 1. Nonspecific inflammatory or edematous changes in the left lower quadrant close to the adjacent colon but without visible diverticulum. Cannot exclude diverticulitis but no evidence for abscess, obstruction. There is mild constipation. 2. 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 3. Pacer leads in right atrium and right ventricle. 4. Small hiatal hernia. Jamie Almanza MD Abdomen X-Ray 03/26/17 0000 Signed Impressions: Service Date/Time: Sunday, March 26, 2017 22:09 - CONCLUSION: 1. No acute findings. Mild to moderate constipation. Degenerative change of the lumbar spine. Jamie Almanza MD Renal Ultrasound 03/16/17 0000 Signed Impressions: Service Date/Time: Thursday, March 16, 2017 19:01 - CONCLUSION: 1. Right kidney not visualized. Mildly atrophic left kidney without hydronephrosis. Jamie Almanza MD Head CT 03/15/17 0000 Signed Impressions: Service Date/Time: February 10:13 - CONCLUSION: 1. Cerebral atrophy. 2. No acute infarct, acute hemorrhage, mass effect or extra-axial fluid collections. Daniel Elizondo MD Physical Exam HEENT: PERRLA; normocephalic; atraumatic; no jaundice. CHEST: CTA CARDIAC: RRR ABDOMEN: Soft, protuberant, mild LLQ TTP; no hepatosplenomegaly; bowel sounds x 4 EXTREMITIES: No clubbing, cyanosis, or edema. SKIN: Normal; no rash; no jaundice. [employer] CERTIFIED NETWORK PROFESSIONAL: Alert (Emilia Villa) Assessment and Plan Plan ASSESSMENT: - Constipation - improving. xray with no evidence obstruction. pt received bowel regimen, + BM - Abdomen pain - LLQ pain, persistent and not relieved with BM. CT 03-30-17--> 1. Nonspecific inflammatory or edematous changes in the left lower quadrant close to the adjacent colon but without visible diverticulum. Cannot exclude diverticulitis but no evidence for abscess, obstruction. There is mild constipation. WBC wnl, afebrile. - Rectal burning - pt c/o hemorrhoid pain and rectal burning after having so much liquid stool PLAN: - Followup with GI as outpatient for Colonoscopy - Miralax daily - Anusol - KAREN - Supportive care Patient seen and examined by Dr. Simpson and myself and this note is written on his behalf. (Emilia Villa) Physician Comments Patient seen and examined Agree with above Continue with current supportive care Monitor labs At present the abdomen seems to be mildly distended tympanic but nontender throughout Patient may advance his diet and may start on dietary supplements Case discussed with Dr. Bauer (Dino Simpson MD) Emilia Villa Apr 01, 2017 09:53 Dino Simpson MD Apr 01, 2017 16:01
[2017-04-01 12:27] LABS: AUTOMATED NEUTROPHIL # 5.4 TH/MM3 (1.8-7.7); BASOPHIL % 0.1 % (0.0-2.0); EOSINOPHIL % 0.5 % (0.0-4.0); HEMATOCRIT 28.9 % (39.0-51.0); HEMO FLAGS DIFF FINAL; LYMPH % 7.7 % (9.0-44.0); LYMPHOCYTE # 0.5 TH/MM3 (1.0-4.8); MEAN CELL VOLUME 93.8 FL (80.0-100.0); MEAN CORPUSCULAR HEMOGLOBIN 32.7 PG (27.0-34.0); MEAN CORPUSCULAR HGB CONC 34.8 % (32.0-36.0); NEUT % 81.7 % (16.0-70.0); PLATELET COUNT 104 TH/MM3 (150-450); RED BLOOD COUNT 3.08 MIL/MM3 (4.50-5.90); RED CELL DISTRIBUTION WIDTH 14.3 % (11.6-17.2); WHITE BLOOD COUNT 6.7 TH/MM3 (4.0-11.0)
[2017-04-01 12:51] LABS: BICARBONATE 20.7 MEQ/L (21.0-32.0); POTASSIUM 4.2 MEQ/L (3.5-5.1)
[2017-04-01] MEDS ORDERED: FUROSEMIDE 40 MG TAB PO ONE (16:30)
--- NOTE | 2017-04-01 16:37 | HHI.PYPN ---
Subjective Remarks Patient seen for psychiatric reevaluation today, patient seems to be kind of hypoactive, distant, disengage, but answer questions appropriately. Patient seems to be also little bit stiff, with prominent and flat affect and poverty of speech. Patient is oriented 3, with fluctuation of consciousness and attention. He is compliant with medications, no prominent side effects at this moment. As per discussion with nurse in charge Kristal, patient has been showing periods of lucidity alternated with periods of his organizations. Patient has moments of hypoactivity activated with moments of restlessness and verbigeration. Last night patient did not sleep more than 2 hours. Patient also shows difficulty eating and decreased appetite Review of Systems Other No somatic complaints Objective Alert: Yes [place]: Person, Place, Situation Mood: Calm ("fair") Affect: Flat Memory Intact: Comment (not formally assessed) Hallucinations: Other (denies any auditory or visual hallucinations at time of interview) Delusions: No Delusion Type: Other (none elicited) Suicidal: Ideation (no SI) Homicidal: Ideation (no HI) Insight/Judgment Poor Labs Test 03/31/17 04/01/17 18:45 12:04 White Blood Count 9.1 TH/MM3 6.7 TH/MM3 Red Blood Count 3.26 MIL/MM3 3.08 MIL/MM3 Hemoglobin 10.4 GM/DL 10.1 GM/DL Hematocrit 30.8 % 28.9 % Mean Corpuscular Volume 94.5 FL 93.8 FL Mean Corpuscular Hemoglobin 32.0 PG 32.7 PG Mean Corpuscular Hemoglobin 33.9 % 34.8 % Concent Red Cell Distribution Width 14.1 % 14.3 % Platelet Count 120 TH/MM3 104 TH/MM3 Mean Platelet Volume 8.5 FL 8.3 FL Neutrophils (%) (Auto) 79.8 % 81.7 % Lymphocytes (%) (Auto) 7.3 % 7.7 % Monocytes (%) (Auto) 12.8 % 10.0 % Eosinophils (%) (Auto) 0.0 % 0.5 % Basophils (%) (Auto) 0.1 % 0.1 % Neutrophils # (Auto) 7.3 TH/MM3 5.4 TH/MM3 Lymphocytes # (Auto) 0.7 TH/MM3 0.5 TH/MM3 Monocytes # (Auto) 1.2 TH/MM3 0.7 TH/MM3 Eosinophils # (Auto) 0.0 TH/MM3 0.0 TH/MM3 Basophils # (Auto) 0.0 TH/MM3 0.0 TH/MM3 CBC Comment DIFF FINAL DIFF FINAL Differential Comment Sodium Level 129 MEQ/L 135 MEQ/L Potassium Level 4.3 MEQ/L 4.2 MEQ/L Chloride Level 98 MEQ/L 105 MEQ/L Carbon Dioxide Level 21.2 MEQ/L 20.7 MEQ/L Anion Gap 10 MEQ/L 9 MEQ/L Blood Urea Nitrogen 62 MG/DL 66 MG/DL Creatinine 3.37 MG/DL 2.83 MG/DL Estimat Glomerular Filtration 18 ML/MIN 21 ML/MIN Rate Random Glucose 104 MG/DL 89 MG/DL Calcium Level 7.3 MG/DL 7.5 MG/DL Protein Corrected Calcium 8.2 MG/DL Total Protein 5.4 GM/DL B-Type Natriuretic Peptide 609 PG/ML Vitals/IOs Vital Signs Date Time Temp Pulse Resp B/P Pulse Ox O2 Delivery O2 Flow Rate FiO2 04/01/17 09:44 60 18 109/53 99 04/01/17 05:18 98.1 Intake and Output 03/31/17 03/31/17 04/01/17 08:00 16:00 00:00 Intake Total 3156 ml 360 ml 840 ml Balance 3156 ml 360 ml 840 ml Assessment & Plan Problem List: (1) Major depressive disorder, recurrent, severe with psychotic symptoms Assessment & Plan: Will monitor potential symptoms of catatonia. We'll switch Haldol due to rigidity to Seroquel 50 g twice a day for psychosis. ICD Code: F33.3 Assessment & Plan Estimated LOS: days Justification for Cont. Inpt. Patient is acutely psychotic needs to continue psychiatric hospitalization for stabilization. Request HC Surrog/Guard Advoc?: Yes Jesus Benavidez MD Apr 01, 2017 16:37
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
[2017-04-01 18:00] VITALS: BP 100/50; PULSE 60; RESP 18; TEMP 97.6
[2017-04-01] MEDS: QUEtiapine FUMARATE 25 MG TAB PO SCH (22:26)
[2017-04-01] MEDS: MIRTAZAPINE 15 MG TAB PO SCH (22:26)
[2017-04-01] MEDS: TAMSULOSIN HCL 0.4 MG CAP PO SCH (22:27)
[2017-04-01] MEDS: ATORVASTATIN 20 MG TAB PO SCH (22:27)
[2017-04-02 04:53] VITALS: BP 167/94; PULSE 57; RESP 16; TEMP 97; O2SAT 95
[2017-04-02 08:18] LABS: AUTOMATED NEUTROPHIL # 5.8 TH/MM3 (1.8-7.7); BASOPHIL % 0.1 % (0.0-2.0); EOSINOPHIL % 0.4 % (0.0-4.0); HEMATOCRIT 31.1 % (39.0-51.0); HEMO FLAGS DIFF FINAL; LYMPH % 7.4 % (9.0-44.0); LYMPHOCYTE # 0.5 TH/MM3 (1.0-4.8); MEAN CELL VOLUME 94.7 FL (80.0-100.0); MEAN CORPUSCULAR HEMOGLOBIN 32.8 PG (27.0-34.0); MEAN CORPUSCULAR HGB CONC 34.6 % (32.0-36.0); MONO % 9.5 % (0.0-8.0); NEUT % 82.6 % (16.0-70.0); PLATELET COUNT 120 TH/MM3 (150-450); RED BLOOD COUNT 3.29 MIL/MM3 (4.50-5.90); RED CELL DISTRIBUTION WIDTH 14.3 % (11.6-17.2); WHITE BLOOD COUNT 7.1 TH/MM3 (4.0-11.0)
[2017-04-02 08:39] LABS: BICARBONATE 19.9 MEQ/L (21.0-32.0); MAGNESIUM 2.8 MG/DL (1.5-2.5)
[2017-04-02] MEDS: HYDROCORTISONE ACETATE 25 MG SUPP RECTAL SCH ×2 (09:14→19:57)
[2017-04-02] MEDS: RANOLAZINE 500 MG EXTENDED RELEASE TAB PO SCH ×2 (09:45→20:27)
[2017-04-02] MEDS: QUEtiapine FUMARATE 25 MG TAB PO SCH ×2 (09:45→20:27)
[2017-04-02] MEDS: FUROSEMIDE 20 MG TAB PO SCH (09:46)
[2017-04-02] MEDS: FAMOTIDINE 20 MG TAB PO SCH ×2 (09:46→20:26)
[2017-04-02] MEDS: CHOLECALCIFEROL (VIT D3) 1000 UNIT TAB PO SCH (09:46)
--- NOTE | 2017-04-02 12:23 | HHI.GIFU ---
Subjective Remarks Resting in bed, no distress. C/O dry mouth, states this makes it harder to eat. No n/v. No abdominal pain. Was having diarrhea, but states this has resolved. (Monika Gutierrez) Objective Vitals I&O Vital Signs Date Time Temp Pulse Resp B/P Pulse Ox O2 Delivery O2 Flow Rate FiO2 04/02/17 04:53 97.0 57 16 167/94 95 04/01/17 18:00 97.6 60 18 100/50 I/O 04/01/17 04/01/17 04/01/17 04/02/17 04/02/17 04/02/17 07:00 15:00 23:00 07:00 15:00 23:00 Intake Total 3832 ml 25 ml 0 ml 0 ml Output Total 2 ml 700 ml 2351 ml 1700 ml Balance 3830 ml 25 ml -700 ml -2351 ml -1700 ml Intake Oral 3832 ml 25 ml 0 ml 0 ml Output Urine Total 700 ml 2350 ml 1700 ml Stool Total 2 ml 1 ml # Voids 2 Laboratory Laboratory Tests Test 04/02/17 07:59 White Blood Count 7.1 Red Blood Count 3.29 Hemoglobin 10.8 Hematocrit 31.1 Mean Corpuscular Volume 94.7 Mean Corpuscular Hemoglobin 32.8 Mean Corpuscular Hemoglobin 34.6 Concent Red Cell Distribution Width 14.3 Platelet Count 120 Mean Platelet Volume 8.1 Neutrophils (%) (Auto) 82.6 Lymphocytes (%) (Auto) 7.4 Monocytes (%) (Auto) 9.5 Eosinophils (%) (Auto) 0.4 Basophils (%) (Auto) 0.1 Neutrophils # (Auto) 5.8 Lymphocytes # (Auto) 0.5 Monocytes # (Auto) 0.7 Eosinophils # (Auto) 0.0 Basophils # (Auto) 0.0 CBC Comment DIFF FINAL Differential Comment Sodium Level 139 Potassium Level 4.0 Chloride Level 110 Carbon Dioxide Level 19.9 Anion Gap 9 Blood Urea Nitrogen 61 Creatinine 2.24 Estimat Glomerular Filtration 28 Rate Random Glucose 89 Calcium Level 7.7 Phosphorus Level 3.9 Magnesium Level 2.8 Imaging Last Impressions Abdomen/Pelvis CT 03/30/17 1920 Signed Impressions: Service Date/Time: Thursday, March 30, 2017 20:07 - CONCLUSION: 1. Nonspecific inflammatory or edematous changes in the left lower quadrant close to the adjacent colon but without visible diverticulum. Cannot exclude diverticulitis but no evidence for abscess, obstruction. There is mild constipation. 2. 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 3. Pacer leads in right atrium and right ventricle. 4. Small hiatal hernia. Jamie Almanza MD Abdomen X-Ray 03/26/17 0000 Signed Impressions: Service Date/Time: Sunday, March 26, 2017 22:09 - CONCLUSION: 1. No acute findings. Mild to moderate constipation. Degenerative change of the lumbar spine. Jamie Almanza MD Renal Ultrasound 03/16/17 0000 Signed Impressions: Service Date/Time: Thursday, March 16, 2017 19:01 - CONCLUSION: 1. Right kidney not visualized. Mildly atrophic left kidney without hydronephrosis. Jamie Almanza MD Head CT 03/15/17 0000 Signed Impressions: Service Date/Time: February 10:13 - CONCLUSION: 1. Cerebral atrophy. 2. No acute infarct, acute hemorrhage, mass effect or extra-axial fluid collections. Daniel Elizondo MD Physical Exam HEENT: Normocephalic; atraumatic; no jaundice. CHEST: CTA CARDIAC: RRR ABDOMEN: Soft, mildly tympanic/distended, mild tenderness LLQ; no hepatosplenomegaly; bowel sounds x 4 EXTREMITIES: No clubbing, cyanosis, or edema. SKIN: Normal; no rash; no jaundice. SEAFOOD TEAM MEMBER: Alert (Monika Gutierrez LEAD APPLICATIONS DEVELOPER) Assessment and Plan Plan ASSESSMENT: - Constipation. Abdomen X-Ray (03/26/17)----> 1. No acute findings. Mild to moderate constipation. Degenerative change of the lumbar spine. Abdomen/Pelvis CT (03/30/17)----> 1. Nonspecific inflammatory or edematous changes in the left lower quadrant close to the adjacent colon but without visible diverticulum. Cannot exclude diverticulitis but no evidence for abscess, obstruction. There is mild constipation. 2. 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 3. Pacer leads in right atrium and right ventricle. 4. Small hiatal hernia. This resolved and then he had diarrhea for several days, but states he is no longer having this. Mild distention, mild tenderness. - Abdominal pain, LLQ tenderness. CT with nonspecific inflammatory or edematous changes in the left lower quadrant close to the adjacent colon but without visible diverticulum. Cannot exclude diverticulitis but no evidence for abscess, obstruction. WBC wnl, afebrile. Improved. - Rectal burning - pt c/o hemorrhoid pain and rectal burning after having diarrhea. Hydrocortisone suppositories. Improved. - Psychosis, per psych. - CAD, RADHA, DM, HTN. Per attending. PLAN: - KAREN - Hydrocortisone suppository - Supportive care - Plan for colonoscopy as outpatient - Patient seen and examined by Dr. Simpson and myself and this note is written on his behalf. (Monika Gutierrez) Physician Comments Patient seen and examined Agree with above Continue with current supportive care Monitor labs Patient is wanting to avoid colonoscopy at this point and so this can be done on an outpatient basis Not much to add from a GI perspective we will sign off (Dino Simpson MD) Monika Gutierrez Apr 02, 2017 12:23 Dino Simpson MD Apr 02, 2017 13:07
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
--- NOTE | 2017-04-02 15:10 | HHI.PYPN ---
Subjective Remarks Patient seen for follow, chart review. As per nursing report and discussion with nursing, patient had a bizarre episode yesterday which she was voicing out loud "God is good, God is great". Patient found lying in hospital bed, with food tray in front but was not noted to be eating. Patient states that he has been feeling "less than satisfactory" and feeling frustrated having difficulty be old whole his food and manipulate utensils. He reports increased stiffness which has frustrated him more when attempting to eat. Patient noted to be slightly more irritable today likely secondary to his frustration. Patient reports not having been able to walk around as he did last week and states wanting to continue to work with physical therapy for increased mobility. Patient continues to report feeling weak. Patient's family came to visit over the weekend have brought him food which patient reports not wanting to eat it. He denies any perceptual disturbances at this time. Review of Systems Except as stated in HPI: all other systems reviewed are Neg Objective Alert: Yes Roff: Person, Place, Situation Mood: Depressed Affect: Other (dysthymic) Memory Intact: Comment (not formally assessed) Hallucinations: Other (denies any auditory or visual hallucinations at time of interview) Delusions: No Delusion Type: Other (none elicited) Suicidal: Ideation (no SI) Homicidal: Ideation (no HI) Insight/Judgment fair insight, impulse control and judgment. Labs Test 04/02/17 07:59 White Blood Count 7.1 TH/MM3 Red Blood Count 3.29 MIL/MM3 Hemoglobin 10.8 GM/DL Hematocrit 31.1 % Mean Corpuscular Volume 94.7 FL Mean Corpuscular Hemoglobin 32.8 PG Mean Corpuscular Hemoglobin 34.6 % Concent Red Cell Distribution Width 14.3 % Platelet Count 120 TH/MM3 Mean Platelet Volume 8.1 FL Neutrophils (%) (Auto) 82.6 % Lymphocytes (%) (Auto) 7.4 % Monocytes (%) (Auto) 9.5 % Eosinophils (%) (Auto) 0.4 % Basophils (%) (Auto) 0.1 % Neutrophils # (Auto) 5.8 TH/MM3 Lymphocytes # (Auto) 0.5 TH/MM3 Monocytes # (Auto) 0.7 TH/MM3 Eosinophils # (Auto) 0.0 TH/MM3 Basophils # (Auto) 0.0 TH/MM3 CBC Comment DIFF FINAL Differential Comment Sodium Level 139 MEQ/L Potassium Level 4.0 MEQ/L Chloride Level 110 MEQ/L Carbon Dioxide Level 19.9 MEQ/L Anion Gap 9 MEQ/L Blood Urea Nitrogen 61 MG/DL Creatinine 2.24 MG/DL Estimat Glomerular Filtration 28 ML/MIN Rate Random Glucose 89 MG/DL Calcium Level 7.7 MG/DL Phosphorus Level 3.9 MG/DL Magnesium Level 2.8 MG/DL Vitals/IOs Vital Signs Date Time Temp Pulse Resp B/P Pulse Ox O2 Delivery O2 Flow Rate FiO2 04/02/17 04:53 97.0 57 16 167/94 95 Intake and Output 04/01/17 04/01/17 04/01/17 07:59 15:59 23:59 Intake Total 3857 ml 0 ml Output Total 2 ml 700 ml Balance 3855 ml -700 ml Assessment & Plan Problem List: (1) Major depressive disorder, recurrent, severe with psychotic symptoms ICD Code: F33.3 Assessment & Plan Patient had been improving with stabilization of mood but yesterday noted to be increasingly hypoactive, noted to have been repeating himself (verbigeration) when answering questions, verbal outbursts, negativism and probable catatonia- like presentation. Patient will be given a trial of Ativan 2 mg by mouth to see if there is any response if secondary to catatonia. Patient to be encouraged to continue to improve oral intake, mobility via physical therapy, continue to monitor medications response and adverse drug reactions. Discharge planning in progress Justification for Cont. Inpt. Patient at risk for further decompensation if it lower level of care Discharge Planning In progress Request HC Surrog/Guard Advoc?: Yes Sal Louie MD Apr 02, 2017 15:10
[2017-04-02] MEDS ORDERED: LORazepam 2 MG TAB PO ONE (15:15)
[2017-04-02] MEDS: MEGESTROL ACETATE SUSP 400 MG/10 ML CUP PO SCH (15:36)
[2017-04-02 16:00] VITALS: BP 127/60; O2SAT 96
[2017-04-02 18:33] VITALS: BP 107/46; PULSE 60; RESP 16; TEMP 99.6; O2SAT 95
[2017-04-02] MEDS: TAMSULOSIN HCL 0.4 MG CAP PO SCH (19:56)
[2017-04-02] MEDS: MIRTAZAPINE 15 MG TAB PO SCH (20:26)
[2017-04-02] MEDS: ATORVASTATIN 20 MG TAB PO SCH (20:26)
[2017-04-02] MEDS: LORazepam 2 MG TAB PO SCH (22:01)
[2017-04-03] MEDS: LORazepam 2 MG TAB PO SCH ×5 (04:00→22:00)
[2017-04-03] MEDS ORDERED: FUROSEMIDE 20 MG/2 ML VIAL IV PUSH ONE (05:15)
[2017-04-03 05:20] VITALS: BP 110/56; PULSE 60; RESP 24; TEMP 98.2; O2SAT 97
[2017-04-03 09:45] VITALS: BP 106/52; PULSE 60
[2017-04-03] MEDS: FUROSEMIDE 20 MG TAB PO SCH (09:45)
[2017-04-03] MEDS: HYDROCORTISONE ACETATE 25 MG SUPP RECTAL SCH ×2 (09:47→21:00)
[2017-04-03] MEDS: CHOLECALCIFEROL (VIT D3) 1000 UNIT TAB PO SCH (09:48)
[2017-04-03] MEDS: MEGESTROL ACETATE SUSP 400 MG/10 ML CUP PO SCH (09:48)
[2017-04-03] MEDS: RANOLAZINE 500 MG EXTENDED RELEASE TAB PO SCH ×2 (09:48→21:00)
[2017-04-03] MEDS: FAMOTIDINE 20 MG TAB PO SCH ×2 (09:48→21:00)
[2017-04-03] MEDS: QUEtiapine FUMARATE 25 MG TAB PO SCH ×3 (09:49→21:00)
[2017-04-03 12:00] VITALS: BP 148/65; PULSE 59
[2017-04-03] MEDS ORDERED: RESP: ALBUTEROL 2.5 MG/IPRATROPIUM 0.5 MG NEB (PRN) NEB (12:00)
[2017-04-03] MEDS ORDERED: BUMETANIDE INJ 1 MG/4 ML VIAL IV PUSH ONE (12:00)
[2017-04-03] MEDS ORDERED: RESP: ALBUTEROL 2.5 MG/IPRATROPIUM 0.5 MG NEB (SCH) NEB ONE (12:00)
[2017-04-03] MEDS ORDERED: methylPREDNISolone SOD SUCC 125 MG/2 ML VIAL IV PUSH ONE (12:00)
[2017-04-03 12:23] LABS: BLOOD GAS BASE EXCESS -2.3 mmol/L (-2-2); BLOOD GAS CARBOXYHEMOGLOBIN 1.5 % (0-4); BLOOD GAS HCO3 22 mmol/L (22-26); BLOOD GAS METHEMOGLOBIN 1.2 % (0-2); BLOOD GAS O2 HGB SATURATION 92 % (90-100); BLOOD GAS PCO2 35 mmHg (38-42); BLOOD GAS PO2 76 mmHg (61-120); BLOOD GAS TOTAL HGB 14.7 G/DL (12.0-16.0); TEMP CORR TO 98.6
[2017-04-03 12:24] LABS: CRITICAL VALUE NO; DRAW SITE RT RADIAL; FIO2 21 %; NUMBER OF ARTERIAL PUNCTURES 1; OXYGEN DEVICE ROOM AIR'; STAT YES; ULNAR PULSE PRESENT
--- NOTE | 2017-04-03 13:31 | RADRPT ---
EXAM DATE/TIME: 04/03/2017 11:51 [facility] COMPARISON: No previous studies available for comparison. INDICATIONS : Wheezing. MEDICAL HISTORY : Hypertension. SURGICAL HISTORY : Pacemaker. ENCOUNTER: Subsequent ACUITY: 4 - 6 days PAIN SCORE: 0/10 LOCATION: Bilateral chest FINDINGS: The heart size is enlarged. The patient is status post sternotomy. There is a bi-lead pacing device i n place from the left subclavian approach. The lungs are clear. No effusion is seen. There is widenin g of the acromioclavicular joint regions bilaterally. CONCLUSION: Cardiomegaly. Marcus Levin MD on April 03, 2017 at 13:29 Board Certified Radiologist. This report was verified electronically.
[2017-04-03 14:34] LABS: AUTOMATED NEUTROPHIL # 6.4 TH/MM3 (1.8-7.7); BASOPHIL % 0.2 % (0.0-2.0); EOSINOPHIL # 0.1 TH/MM3 (0-0.4); EOSINOPHIL % 0.9 % (0.0-4.0); HEMATOCRIT 32.5 % (39.0-51.0); LYMPH % 11.3 % (9.0-44.0); LYMPHOCYTE # 0.9 TH/MM3 (1.0-4.8); MEAN CELL VOLUME 94.1 FL (80.0-100.0); MEAN CORPUSCULAR HEMOGLOBIN 32.3 PG (27.0-34.0); MEAN CORPUSCULAR HGB CONC 34.3 % (32.0-36.0); MONO % 10.3 % (0.0-8.0); NEUT % 77.3 % (16.0-70.0); PLATELET COUNT 137 TH/MM3 (150-450); RED BLOOD COUNT 3.45 MIL/MM3 (4.50-5.90); RED CELL DISTRIBUTION WIDTH 14.3 % (11.6-17.2); WHITE BLOOD COUNT 8.2 TH/MM3 (4.0-11.0)
[2017-04-03 14:41] LABS: HEMO FLAGS AUTO DIFF
[2017-04-03 14:52] LABS: ALKALINE PHOSPHATASE 85 U/L (45-117); ALT (GPT) 21 U/L (12-78); ANION GAP 8 MEQ/L (5-15); AST (GOT) 21 U/L (15-37); BICARBONATE 23.5 MEQ/L (21.0-32.0); BLOOD UREA NITROGEN 55 MG/DL (7-18); CHLORIDE 107 MEQ/L (98-107); GLOMERULAR FILTRATION RATE 34 ML/MIN (>89); MAGNESIUM 2.2 MG/DL (1.5-2.5); POTASSIUM 3.9 MEQ/L (3.5-5.1); SODIUM (NA) 138 MEQ/L (136-145); TOTAL BILIRUBIN ADULT 0.6 MG/DL (0.2-1.0)
[2017-04-03 15:13] LABS: PLATELET ESTIMATE SMEAR LOW (NORMAL); PLATELET MORPHOLOGY NORMAL (NORMAL); SCAN/DIFF AUTO DIFF CONFIRMED
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
--- NOTE | 2017-04-03 16:53 | HHI.PYPN ---
Subjective Remarks Patient seen for follow-up, chart reviewed. After discussion with nursing staff , patient was noted to have orientation to person only, 3 episodes of diarrhea yesterday noted to be disorganized and her at times calling out sons name. Patient found lying in hospital bed study feeling pretty good he states he recalls having eaten his meals recently, also reports having 2-4 loose stools yesterday. Patient denies any auditory hallucinations but states these feeling a little depressed. Patient noted to be incoherent at times and oriented alert and oriented to person and place only. Labs reviewed. CBC patient noted to have normocytic anemia with thrombocytopenia, on BMP patient with the BUN and creatinine trending down. Hospital consult input appreciated. Review of Systems Except as stated in HPI: all other systems reviewed are Neg Objective Alert: Yes [place]: Person, Place Mood: Other ("pretty good") Affect: Restricted, Other (mood incongruent) Memory Intact: Comment (not formally assessed) Hallucinations: Other (denies any auditory or visual hallucinations at time of interview) Delusions: No Delusion Type: Other (none elicited) Suicidal: Ideation (no SI) Homicidal: Ideation (no HI) Insight/Judgment Limited insight, fair impulse control and judgment Labs Test 04/03/17 04/03/17 12:07 13:56 Blood Gas Puncture Site RT RADIAL Blood Gas Patient Temperature 98.6 Blood Gas HCO3 22 mmol/L Blood Gas Base Excess -2.3 mmol/L Blood Gas Oxygen Saturation 92 % Arterial Blood pH 7.41 Arterial Blood Partial 35 mmHg Pressure CO2 Arterial Blood Partial 76 mmHg Pressure O2 Arterial Blood Oxygen Content 19.0 Vol % Arterial Blood 1.5 % Carboxyhemoglobin Arterial Blood Methemoglobin 1.2 % Blood Gas Hemoglobin 14.7 G/DL Oxygen Delivery Device ROOM AIR' Blood Gas Inspired Oxygen 21 % White Blood Count 8.2 TH/MM3 Red Blood Count 3.45 MIL/MM3 Hemoglobin 11.1 GM/DL Hematocrit 32.5 % Mean Corpuscular Volume 94.1 FL Mean Corpuscular Hemoglobin 32.3 PG Mean Corpuscular Hemoglobin 34.3 % Concent Red Cell Distribution Width 14.3 % Platelet Count 137 TH/MM3 Mean Platelet Volume 8.7 FL Neutrophils (%) (Auto) 77.3 % Lymphocytes (%) (Auto) 11.3 % Monocytes (%) (Auto) 10.3 % Eosinophils (%) (Auto) 0.9 % Basophils (%) (Auto) 0.2 % Neutrophils # (Auto) 6.4 TH/MM3 Lymphocytes # (Auto) 0.9 TH/MM3 Monocytes # (Auto) 0.8 TH/MM3 Eosinophils # (Auto) 0.1 TH/MM3 Basophils # (Auto) 0.0 TH/MM3 CBC Comment AUTO DIFF Differential Comment AUTO DIFF CONFIRMED Platelet Estimate LOW Platelet Morphology Comment NORMAL Red Cell Morphology Comment NORMAL Sodium Level 138 MEQ/L Potassium Level 3.9 MEQ/L Chloride Level 107 MEQ/L Carbon Dioxide Level 23.5 MEQ/L Anion Gap 8 MEQ/L Blood Urea Nitrogen 55 MG/DL Creatinine 1.90 MG/DL Estimat Glomerular Filtration 34 ML/MIN Rate Random Glucose 213 MG/DL Calcium Level 8.0 MG/DL Phosphorus Level 2.6 MG/DL Magnesium Level 2.2 MG/DL Total Bilirubin 0.6 MG/DL Aspartate Amino Transf 21 U/L (AST/SGOT) Alanine Aminotransferase 21 U/L (ALT/SGPT) Alkaline Phosphatase 85 U/L Total Protein 5.8 GM/DL Albumin 2.2 GM/DL Vitals/IOs Vital Signs Date Time Temp Pulse Resp B/P Pulse Ox O2 Delivery O2 Flow Rate FiO2 04/03/17 12:00 59 148/65 04/03/17 05:20 98.2 24 97 Intake and Output 04/02/17 04/02/17 04/02/17 07:59 15:59 23:59 Intake Total 240 ml 520 ml Output Total 2351 ml 3435 ml 540 ml Balance -2351 ml -3195 ml -20 ml Assessment & Plan Problem List: (1) Major depressive disorder, recurrent, severe with psychotic symptoms ICD Code: F33.3 Assessment & Plan Patient appeared to be had been improving last week but now noted to be confused , incoherent at times, noted to be slightly more irritable. Patient continued on Ativan regimen due to suspicion of catatonia which she appeared to have responded to last evening. Patient now noted to be confused with suspicion of delirium secondary to medical cause at this time. Patient was continued loose stools and will continue recommendations as per primary medical team for the same. Continue current medication regimen monitor for medication response and adverse drug reactions. Patient to continue physical therapy, continue recommendations as per primary medical team. Discharge planning in progress Justification for Cont. Inpt. Patient risk for decompensation if at lower level of care Discharge Planning In progress Request HC Surrog/Guard Advoc?: Yes Sal Louie MD Apr 03, 2017 16:53
[2017-04-03] MEDS: RESP: ALBUTEROL 2.5 MG/IPRATROPIUM 0.5 MG NEB (SCH) NEB ×2 (17:00→21:10)
--- NOTE | 2017-04-03 17:44 | ECHRPT ---
Indication: SHORTNESS OF BREATH CONCLUSIONS Technically difficult study In limited views, the left ventricular systolic function is moderately reduced with an estimated eje ction fraction in the range of 40-45%. There is global left ventricular dysfunction, can not rule out wall motion abnormalities. Doppler parameters are consistent with impaired left ventricular relaxtion (grade 1 diastolic dysfun ction). Trace mitral valve regurgitation. There is mild tricuspid valve regurgitation. BP: 106 / 52 HR: 60 Rhythm: Sinus MEASUREMENTS (Male / Female) Normal Values Technical Quality:Very technically difficult study 2D ECHO LV Diastolic Diameter PLAX 5.9 cm 4.2 - 5.9 / 3.9 - 5.3 cm LV Systolic Diameter PLAX 5.2 cm IVS Diastolic Thickness 0.8 cm 0.6 - 1.0 / 0.6 - 0.9 cm LVPW Diastolic Thickness 0.8 cm 0.6 - 1.0 / 0.6 - 0.9 cm LV Relative Wall Thickness 0.3 LVOT Diameter 2.4 cm Aortic Root Diameter 3.6 cm M-MODE AV Cusp Separation MM 2.3 cm DOPPLER AV Peak Velocity 102.0 cm/s AV Peak Gradient 4.2 mmHg AV Mean Gradient 2.0 mmHg AV Velocity Time Integral 17.5 cm LVOT Peak Velocity 82.0 cm/s LVOT Peak Gradient 2.7 mmHg LVOT Velocity Time Integral 15.2 cm LVOT Cardiac Index 1741.0 cm/minm AV Area Cont Eq vti 3.9 cm AV Area Cont Eq pk 3.6 cm Mitral E Point Velocity 69.1 cm/s Mitral A Point Velocity 101.0 cm/s Mitral E to A Ratio 0.7 LV E' Lateral Velocity 9.7 cm/s Mitral E to LV E' Lateral Ratio 7.1 LV E' Septal Velocity 7.3 cm/s Mitral E to LV E' Septal Ratio 9.4 TR Peak Velocity 285.0 cm/s TR Peak Gradient 32.5 mmHg PV Peak Velocity 87.2 cm/s PV Peak Gradient 3.0 mmHg FINDINGS LEFT VENTRICLE Normal left ventricular size. Wall thickness is normal. In limited views, the left ventricular systolic function is moderately reduced with an estimated eje ction fraction in the range of 40-45% There is global left ventricular dysfunction. Doppler parameters are consistent with impaired left ventricular relaxtion (grade 1 diastolic dysfun ction). RIGHT VENTRICLE The right ventricle was not well visualized. LEFT ATRIUM The left atrial size is [id number] dilated. RIGHT ATRIUM The right atrial size is mildly dilated. ATRIAL SEPTUM The interatrial septum not well visualized. AORTA The aortic root and proximal ascending aorta are not well visualized. MITRAL VALVE Structurally normal mitral valve. Trace mitral valve regurgitation. Mild mitral annular calcification. AORTIC VALVE Aortic valve sclerosis is present. No aortic valve stenosis. No aortic valve regurgitation. TRICUSPID VALVE Structurally normal tricuspid valve. There is mild tricuspid valve regurgitation. There is estimated mild pulmonary hypertension present (range 40-50 mmHg). PULMONARY VALVE The pulmonary valve is not well visualized. VESSELS The inferior vena cava was not well visualized. Don Regalado DO (Electronically Signed) Final Date:03 April 2017 17:42
[2017-04-03] MEDS ORDERED: DEXTROSE 50% IN WATER 50 ML VIAL(D50) IV PRN (18:00)
[2017-04-03 18:01] LABS: C. DIFF EPI 027 PRESUMPTIVE NEGATIVE (NEGATIVE)
[2017-04-03 18:09] VITALS: BP 124/60; PULSE 60; RESP 16; TEMP 99.4; O2SAT 95
[2017-04-03] MEDS: methylPREDNISolone SOD SUCC 40 MG/1 ML VIAL IV PUSH SCH ×2 (18:36→23:21)
[2017-04-03] MEDS: ATORVASTATIN 20 MG TAB PO SCH (21:00)
[2017-04-03] MEDS: TAMSULOSIN HCL 0.4 MG CAP PO SCH (21:00)
[2017-04-03] MEDS: MIRTAZAPINE 15 MG TAB PO SCH (21:00)
[2017-04-03 21:57] VITALS: BP 137/63; PULSE 61; RESP 20; TEMP 98.8; O2SAT 92
[2017-04-04] MEDS: LORazepam 2 MG TAB PO SCH ×4 (04:00→21:31)
[2017-04-04] MEDS: methylPREDNISolone SOD SUCC 40 MG/1 ML VIAL IV PUSH SCH ×2 (05:53→12:00)
[2017-04-04 06:00] VITALS: BP 141/65; PULSE 65; RESP 20; TEMP 98.6; O2SAT 95
[2017-04-04] MEDS: RANOLAZINE 500 MG EXTENDED RELEASE TAB PO SCH ×2 (09:00→21:00)
[2017-04-04] MEDS: QUEtiapine FUMARATE 25 MG TAB PO SCH ×2 (09:00→20:59)
[2017-04-04] MEDS: HYDROCORTISONE ACETATE 25 MG SUPP RECTAL SCH ×2 (09:00→21:00)
[2017-04-04] MEDS: MEGESTROL ACETATE SUSP 400 MG/10 ML CUP PO SCH (09:00)
[2017-04-04] MEDS: FAMOTIDINE 20 MG TAB PO SCH ×2 (09:00→20:59)
[2017-04-04] MEDS: CHOLECALCIFEROL (VIT D3) 1000 UNIT TAB PO SCH (09:00)
--- NOTE | 2017-04-04 09:21 | HHI.PYPN ---
Subjective Remarks Patient seen for follow, chart review. After discussion with nursing staff patient noted to be somewhat lethargic last evening, the never received his scheduled dose of Ativan due to low heart rates, did not have any loose to last evening and C. difficile lab result was negative. Patient did eat 100% of his lunch yesterday. Patient found lying in hospital bed, noted to be calm and cooperative interview. It was noted to be smiling more today. Patient states that his mood has been "down in the dumps but better". Patient states he continues to feel weak but is a 40 week in his strength. He states that he had one loose stool this morning and this is keeping him from being able to be more mobile participate in groups today. Patient states that he will try to take it day by day with hopes of returning back to his home to be able to take care of his and she states that she needs him and he needs her. She denies any auditory hallucinations, noted be more reactive in better spirits today. Review of Systems Except as stated in HPI: all other systems reviewed are Neg Objective Alert: Yes [place]: Person, Place Mood: Other ("down in the dumps but better") Affect: Restricted, Other (but able to smile occasionally) Memory Intact: Comment (not formally assessed) Hallucinations: Other (denies any auditory or visual hallucinations at time of interview) Delusions: No Delusion Type: Other (none elicited) Suicidal: Ideation (no SI) Homicidal: Ideation (no HI) Insight/Judgment Fair insight, impulse control and judgment Labs Test 04/03/17 04/03/17 04/03/17 12:07 13:56 14:49 Blood Gas Puncture Site RT RADIAL Blood Gas Patient Temperature 98.6 Blood Gas HCO3 22 mmol/L Blood Gas Base Excess -2.3 mmol/L Blood Gas Oxygen Saturation 92 % Arterial Blood pH 7.41 Arterial Blood Partial 35 mmHg Pressure CO2 Arterial Blood Partial 76 mmHg Pressure O2 Arterial Blood Oxygen Content 19.0 Vol % Arterial Blood 1.5 % Carboxyhemoglobin Arterial Blood Methemoglobin 1.2 % Blood Gas Hemoglobin 14.7 G/DL Oxygen Delivery Device ROOM AIR' Blood Gas Inspired Oxygen 21 % White Blood Count 8.2 TH/MM3 Red Blood Count 3.45 MIL/MM3 Hemoglobin 11.1 GM/DL Hematocrit 32.5 % Mean Corpuscular Volume 94.1 FL Mean Corpuscular Hemoglobin 32.3 PG Mean Corpuscular Hemoglobin 34.3 % Concent Red Cell Distribution Width 14.3 % Platelet Count 137 TH/MM3 Mean Platelet Volume 8.7 FL Neutrophils (%) (Auto) 77.3 % Lymphocytes (%) (Auto) 11.3 % Monocytes (%) (Auto) 10.3 % Eosinophils (%) (Auto) 0.9 % Basophils (%) (Auto) 0.2 % Neutrophils # (Auto) 6.4 TH/MM3 Lymphocytes # (Auto) 0.9 TH/MM3 Monocytes # (Auto) 0.8 TH/MM3 Eosinophils # (Auto) 0.1 TH/MM3 Basophils # (Auto) 0.0 TH/MM3 CBC Comment AUTO DIFF Differential Comment AUTO DIFF CONFIRMED Platelet Estimate LOW Platelet Morphology Comment NORMAL Red Cell Morphology Comment NORMAL Sodium Level 138 MEQ/L Potassium Level 3.9 MEQ/L Chloride Level 107 MEQ/L Carbon Dioxide Level 23.5 MEQ/L Anion Gap 8 MEQ/L Blood Urea Nitrogen 55 MG/DL Creatinine 1.90 MG/DL Estimat Glomerular Filtration 34 ML/MIN Rate Random Glucose 213 MG/DL Calcium Level 8.0 MG/DL Phosphorus Level 2.6 MG/DL Magnesium Level 2.2 MG/DL Total Bilirubin 0.6 MG/DL Aspartate Amino Transf 21 U/L (AST/SGOT) Alanine Aminotransferase 21 U/L (ALT/SGPT) Alkaline Phosphatase 85 U/L Total Protein 5.8 GM/DL Albumin 2.2 GM/DL Stool C. difficile Toxin (PCR) NEGATIVE Stl C. difficile Toxin PRESUMPTIVE Epiderm 027 NEGATIVE Vitals/IOs Labs reviewed. Vital Signs Date Time Temp Pulse Resp B/P Pulse Ox O2 Delivery O2 Flow Rate FiO2 04/04/17 06:00 98.6 65 20 141/65 95 Intake and Output 04/03/17 04/03/17 04/04/17 08:00 16:00 00:00 Intake Total 2760 ml 120 ml Output Total 350 ml 750 ml 700 ml Balance -350 ml 2010 ml -580 ml Assessment & Plan Problem List: (1) Major depressive disorder, recurrent, severe with psychotic symptoms ICD Code: F33.3 Assessment & Plan Patient noted to be less confused and more coherent today. Patient noted to be more motivated this morning, continues to report some loose stools earlier today. Patient reports his moods still being depressed but but better than the past couple of days. He denies any perceptual disturbances at this time. We' ll continue current treatment and monitor medication response adverse drug reactions. We'll consider down titrating lorazepam as patient more consistent with improvement from catatonic symptoms. Patient to continue physical therapy to regain strength. Patient likely to be discharged to rehabilitation program after stabilization. Recommendations as per primary medical team. Discharge planning in progress Justification for Cont. Inpt. Patient at risk for decompensation if I lower level of care Discharge Planning In progress Request HC Surrog/Guard Advoc?: Yes Sal Louie MD Apr 04, 2017 09:21
[2017-04-04] MEDS: RESP: ALBUTEROL 2.5 MG/IPRATROPIUM 0.5 MG NEB (SCH) NEB ×4 (09:37→21:22)
[2017-04-04] MEDS ORDERED: DEXTROSE 50% IN WATER 50 ML VIAL(D50) IV PRN (10:00)
[2017-04-04] MEDS ORDERED: GLUCAGON 1 MG/ML VIAL OTHER PRN (10:00)
[2017-04-04] MEDS: INSULIN ASPART SUPPLEMENTAL SCALE SQ SCH ×3 (11:00→21:00)
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
[2017-04-04 14:57] LABS: AUTOMATED NEUTROPHIL # 6.7 TH/MM3 (1.8-7.7); BASOPHIL % 0.3 % (0.0-2.0); HEMATOCRIT 34.5 % (39.0-51.0); LYMPH % 7.3 % (9.0-44.0); LYMPHOCYTE # 0.6 TH/MM3 (1.0-4.8); MEAN CELL VOLUME 94.6 FL (80.0-100.0); MEAN CORPUSCULAR HEMOGLOBIN 31.9 PG (27.0-34.0); MEAN CORPUSCULAR HGB CONC 33.7 % (32.0-36.0); NEUT % 86.4 % (16.0-70.0); PLATELET COUNT 156 TH/MM3 (150-450); RED BLOOD COUNT 3.65 MIL/MM3 (4.50-5.90); RED CELL DISTRIBUTION WIDTH 14.6 % (11.6-17.2); WHITE BLOOD COUNT 7.8 TH/MM3 (4.0-11.0)
[2017-04-04 15:00] LABS: HEMO FLAGS AUTO DIFF
[2017-04-04 15:08] LABS: ANION GAP 12 MEQ/L (5-15); AST (GOT) 20 U/L (15-37); BICARBONATE 23.5 MEQ/L (21.0-32.0); BLOOD UREA NITROGEN 48 MG/DL (7-18); CHLORIDE 107 MEQ/L (98-107); SODIUM (NA) 142 MEQ/L (136-145)
[2017-04-04 15:10] LABS: ALKALINE PHOSPHATASE 81 U/L (45-117); ALT (GPT) 24 U/L (12-78); GLOMERULAR FILTRATION RATE 36 ML/MIN (>89); TOTAL BILIRUBIN ADULT 0.5 MG/DL (0.2-1.0)
[2017-04-04 15:51] LABS: BANDS 5 % (0-6); METAMYELOCYTES 1 % (0-1); MYELOCYTES 1 % (0-0); NEUTROPHIL # MANUAL DIFF 6.2 TH/MM3 (1.8-7.7); PLASMA CELLS 1 % (0-0); PLATELET ESTIMATE SMEAR NORMAL (NORMAL); PLATELET MORPHOLOGY NORMAL (NORMAL); POLYS (SEG NEUTROPHILS) 73 % (16-70); SCAN/DIFF FINAL DIFF MANUAL; WBC DIFF SAMPLE 100
[2017-04-04] MEDS: LOPERAMIDE HCL 2 MG CAP PO PRN (17:31)
[2017-04-04 18:00] VITALS: BP 151/67; PULSE 62; RESP 20; TEMP 98.3; O2SAT 96
--- NOTE | 2017-04-04 20:21 | MB ---
cc: ABBIE PURI M.D. DATE OF CONSULTATION 04/04/2017 REASON FOR CONSULTATION Evaluation of abnormal echo. HISTORY OF THE PRESENT ILLNESS Suhail Sarabia is an 82-year-old man admitted to the psych adame. I was able to get a pretty good history from him. He moved here from [place]. Says he had a heart attack in the year 1999. He had bypass surgery in 1993. He has angina once in a while but it is no worse and has not been a problem lately. He had an echo Doppler study showing an EF of 40-45%. He has a pacemaker. He is able to tell me it is a [employer] device. The last time it was checked it was at least 6 months ago so I am having the [employer] rep come check it. Denies shortness of breath. Denies significant edema. He does have stable angina. 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 Cardiac risk factors include diabetes and hypertension. He has never smoked. PAST MEDICAL HISTORY 1. Diabetes. 2. Hypertension. 3. He has got some neuropathy from the diabetes. 4. Psychiatric issues. 5. Coronary artery disease. 6. History of totally occluded left carotid. PAST SURGICAL HISTORY Includes a [employer] pacemaker. SOCIAL HISTORY He has never smoked. PHYSICAL EXAMINATION GENERAL: Obese white male, alert, oriented, not in any acute distress. VITAL SIGNS: Blood pressures have been fluctuating. He had to have his Carvedilol held in the past for drop in blood pressure. HEENT: Exam unremarkable. NECK: No bruits. CHEST: Clear to auscultation. CARDIOVASCULAR: S1-S2 regular rate and rhythm, a 1/6 systolic ejection murmur. I cannot hear an S3. ABDOMEN: Soft. EXTREMITIES: Reveal trace edema. Pedal pulses are palpable. EKG shows an atrially paced rhythm with left anterior fascicular block, right bundle-branch block. LABORATORY DATA Laboratories are charted. His BUN and creatinine have fluctuated but had been significantly elevated with a creatinine as high as 3.37, currently 1.81. His LUCIAN inhibitor has been held. IMPRESSION An 82-year-old male with chronic ischemic heart disease by history. He has got stable angina. He has a [employer] pacemaker. He has an EF of 40-45%. RECOMMENDATIONS Because of some blood pressure tolerability issues I have reduced the carvedilol to 6.25 b.i.d. I will have the [employer] rep come check his defibrillators. His cardiac status does not appear unstable. I will follow up on as-needed basis. Please call if there are any questions. MD TERESA Monahan/JESUS /5:17 PM /8:05 PM
[2017-04-04] MEDS: CARVEDILOL 6.25 MG TAB PO SCH (21:00)
[2017-04-04] MEDS: ATORVASTATIN 20 MG TAB PO SCH (21:00)
[2017-04-04] MEDS: MIRTAZAPINE 15 MG TAB PO SCH (21:00)
[2017-04-04] MEDS: TAMSULOSIN HCL 0.4 MG CAP PO SCH (21:00)
[2017-04-05] MEDS: LORazepam 2 MG TAB PO SCH ×3 (04:59→16:00)
[2017-04-05] MEDS: INSULIN ASPART SUPPLEMENTAL SCALE SQ SCH ×4 (06:02→21:12)
[2017-04-05 06:16] VITALS: BP 157/68; PULSE 60; RESP 18; TEMP 97.3; O2SAT 98
[2017-04-05] MEDS: RESP: ALBUTEROL 2.5 MG/IPRATROPIUM 0.5 MG NEB (SCH) NEB ×4 (08:20→22:00)
[2017-04-05] MEDS: predniSONE 20 MG TAB PO SCH (09:00)
[2017-04-05] MEDS: HYDROCORTISONE ACETATE 25 MG SUPP RECTAL SCH ×2 (09:00→21:10)
[2017-04-05] MEDS: RANOLAZINE 500 MG EXTENDED RELEASE TAB PO SCH ×2 (09:00→21:09)
[2017-04-05] MEDS: CARVEDILOL 6.25 MG TAB PO SCH ×2 (09:00→21:10)
[2017-04-05] MEDS: FAMOTIDINE 20 MG TAB PO SCH ×2 (09:00→21:10)
[2017-04-05] MEDS: QUEtiapine FUMARATE 25 MG TAB PO SCH ×2 (09:00→21:10)
[2017-04-05] MEDS: MEGESTROL ACETATE SUSP 400 MG/10 ML CUP PO SCH (09:00)
[2017-04-05] MEDS: CHOLECALCIFEROL (VIT D3) 1000 UNIT TAB PO SCH (09:00)
[2017-04-05] MEDS: FUROSEMIDE 40 MG TAB PO SCH (09:00)
[2017-04-05 11:08] LABS: BICARBONATE 23.5 MEQ/L (21.0-32.0)
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
[2017-04-05 18:00] VITALS: BP 121/58; PULSE 60; RESP 18; TEMP 98.5; O2SAT 95
--- NOTE | 2017-04-05 18:02 | HHI.PYPN ---
Subjective Remarks Patient seen for follow-up, chart reviewed. As discussed with nursing staff patient had physical therapy today continue to have multiple episodes of loose stools but stools more formed, patient ate fair today. Patient was found sitting in hospital chair eating, reports feeling fair, denies any depressive mood, denies any auditory hallucinations, reports having had one loose bowel movement today. She states that he had didn't really more and had a session with physical therapy today. Patient noted to have improved mood and affect today. Patient states looking forward to going home to his . Review of Systems Except as stated in HPI: all other systems reviewed are Neg Objective Alert: Yes [place]: Person, Place Mood: Other ("down in the dumps but better") Affect: Restricted, Other (but able to smile occasionally) Memory Intact: Comment (not formally assessed) Hallucinations: Other (denies any auditory or visual hallucinations at time of interview) Delusions: No Delusion Type: Other (none elicited) Suicidal: Ideation (no SI) Homicidal: Ideation (no HI) Insight/Judgment Fair insight, impulse control and judgment Labs Labs reviewed. Test 04/05/17 09:59 Sodium Level 142 MEQ/L Potassium Level 4.0 MEQ/L Chloride Level 109 MEQ/L Carbon Dioxide Level 23.5 MEQ/L Anion Gap 10 MEQ/L Blood Urea Nitrogen 52 MG/DL Creatinine 1.47 MG/DL Estimat Glomerular Filtration 46 ML/MIN Rate Random Glucose 165 MG/DL Calcium Level 8.4 MG/DL Vitals/IOs Vital Signs Date Time Temp Pulse Resp B/P Pulse Ox O2 Delivery O2 Flow Rate FiO2 04/05/17 06:16 97.3 60 18 157/68 98 Intake and Output 04/04/17 04/04/17 04/04/17 07:59 15:59 23:59 Intake Total 360 ml 1320 ml 0 ml Output Total 500 ml 700 ml Balance 360 ml 820 ml -700 ml Assessment & Plan Problem List: (1) Major depressive disorder, recurrent, severe with psychotic symptoms ICD Code: F33.3 Assessment & Plan Patient this time noted to have an improved mood, noted to be less depressed, denying any auditory hallucinations patient seems to be recovering from recent episodes of diarrhea. Patient continues to be followed medical team. Patient continued to quetiapine 50 mg by mouth twice a day psychosis, continue mirtazapine 30 mg at bedtime for depression, decrease lorazepam to 1 mg every 6 hours with plan to taper as patient no longer noted to have catatonic features. Auditory medication response adverse drug reactions. Patient to continue physical therapy. Supportive psychotherapy provided. Discharge planning in progress Justification for Cont. Inpt. Patient risk for decompensation if at lower level of care Discharge Planning In progress Request HC Surrog/Guard Advoc?: Yes Sal Louie MD Apr 05, 2017 18:02
[2017-04-05] MEDS: LORazepam 1 MG TAB PO SCH (21:10)
[2017-04-05] MEDS: TAMSULOSIN HCL 0.4 MG CAP PO SCH (21:10)
[2017-04-05] MEDS: ATORVASTATIN 20 MG TAB PO SCH (21:10)
[2017-04-05] MEDS: MIRTAZAPINE 15 MG TAB PO SCH (21:10)
[2017-04-06] MEDS: LORazepam 1 MG TAB PO SCH ×5 (04:43→21:31)
[2017-04-06 06:06] VITALS: BP 198/85; PULSE 78; RESP 16; TEMP 97.5; O2SAT 95
[2017-04-06] MEDS: INSULIN ASPART SUPPLEMENTAL SCALE SQ SCH ×4 (06:13→22:04)
[2017-04-06 06:49] VITALS: BP 159/77
[2017-04-06] MEDS: RESP: ALBUTEROL 2.5 MG/IPRATROPIUM 0.5 MG NEB (SCH) NEB ×4 (07:28→20:00)
[2017-04-06] MEDS: QUEtiapine FUMARATE 25 MG TAB PO SCH ×2 (08:33→21:32)
[2017-04-06] MEDS: FAMOTIDINE 20 MG TAB PO SCH ×2 (08:33→21:32)
[2017-04-06] MEDS: predniSONE 20 MG TAB PO SCH (08:33)
[2017-04-06] MEDS: CARVEDILOL 6.25 MG TAB PO SCH ×2 (08:33→21:00)
[2017-04-06] MEDS: RANOLAZINE 500 MG EXTENDED RELEASE TAB PO SCH ×2 (08:33→21:32)
[2017-04-06] MEDS: HYDROCORTISONE ACETATE 25 MG SUPP RECTAL SCH ×2 (08:34→21:00)
[2017-04-06] MEDS: MEGESTROL ACETATE SUSP 400 MG/10 ML CUP PO SCH (08:34)
[2017-04-06] MEDS: CHOLECALCIFEROL (VIT D3) 1000 UNIT TAB PO SCH (08:34)
[2017-04-06] MEDS: FUROSEMIDE 40 MG TAB PO SCH (08:34)
--- NOTE | 2017-04-06 09:41 | HHI.PYPN ---
Subjective Remarks Patient seen for follow, chart reviewed. After discussion with nursing staff patient is doing okay, eating more, adherence to medications, slept well last night. Patient seen lying in hospital bed asleep was able to wake up to engage in interview. Patient states that he is feeling "quite fair", reports having slept well last night, reports eating more, reports tolerating medications well. Patient states that he has plans to be more mobile, wanting to work with physical therapy to improve his mobility. Patient states that he is ready to go home. Possible discharge plan for Sunday was discussed which she agreed to. Review of Systems Except as stated in HPI: all other systems reviewed are Neg Objective Alert: Yes [place]: Person, Place, Date Mood: Other ("quite fair") Affect: Restricted, Other (but able to smile occasionally) Memory Intact: Comment (not formally assessed) Hallucinations: Other (denies any auditory or visual hallucinations at time of interview) Delusions: No Delusion Type: Other (none elicited) Suicidal: Ideation (no SI) Homicidal: Ideation (no HI) Insight/Judgment Fair insight, impulse control and judgment Labs Labs reviewed Test 04/05/17 09:59 Sodium Level 142 MEQ/L Potassium Level 4.0 MEQ/L Chloride Level 109 MEQ/L Carbon Dioxide Level 23.5 MEQ/L Anion Gap 10 MEQ/L Blood Urea Nitrogen 52 MG/DL Creatinine 1.47 MG/DL Estimat Glomerular Filtration 46 ML/MIN Rate Random Glucose 165 MG/DL Calcium Level 8.4 MG/DL Vitals/IOs Vital Signs Date Time Temp Pulse Resp B/P Pulse Ox O2 Delivery O2 Flow Rate FiO2 04/06/17 06:49 159/77 04/06/17 06:06 97.5 78 16 95 Intake and Output 04/05/17 04/05/17 04/06/17 08:00 16:00 00:00 Intake Total 120 ml 2460 ml 600 ml Output Total 1 ml 1500 ml 700 ml Balance 119 ml 960 ml -100 ml Assessment & Plan Problem List: (1) Major depressive disorder, recurrent, severe with psychotic symptoms ICD Code: F33.3 Assessment & Plan Patient noted with improved mood, noted to be more interactive, and more motivated. Patient now with decrease of loose bowel movement, noted to be eating more now. Patient motivated to weekend his strength in working with physical therapy. She denies any depressive symptoms at this time, denies any auditory hallucinations. Patient with probable discharge on Sunday to rehabilitation program. We'll start to taper benzodiazepines. Justification for Cont. Inpt. Patient at risk for further decompensation if at lower level of care. Discharge Planning In progress Request HC Surrog/Guard Advoc?: Yes Sal Louie MD Apr 06, 2017 09:41
[2017-04-06] MEDS: amLODIPine BESYLATE 5 MG TAB PO SCH (11:30)
[2017-04-06 12:44] LABS: POTASSIUM 3.9 MEQ/L (3.5-5.1)
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
[2017-04-06 17:35] VITALS: BP 107/57; PULSE 60; RESP 18; TEMP 99.7; O2SAT 95
[2017-04-06] MEDS: INSULIN DETEMIR 100 UNITS/ML VIAL SQ SCH (21:00)
[2017-04-06] MEDS: ATORVASTATIN 20 MG TAB PO SCH (21:32)
[2017-04-06] MEDS: MIRTAZAPINE 15 MG TAB PO SCH (21:32)
[2017-04-06] MEDS: TAMSULOSIN HCL 0.4 MG CAP PO SCH (21:33)
[2017-04-07] MEDS: LORazepam 1 MG TAB PO SCH ×5 (04:00→14:20)
[2017-04-07 06:17] VITALS: BP 187/77; PULSE 61; RESP 18; TEMP 97.6; O2SAT 94
[2017-04-07] MEDS: INSULIN ASPART SUPPLEMENTAL SCALE SQ SCH ×4 (06:42→21:00)
[2017-04-07] MEDS: RESP: ALBUTEROL 2.5 MG/IPRATROPIUM 0.5 MG NEB (SCH) NEB ×2 (09:10→13:58)
[2017-04-07 09:29] VITALS: BP 191/81; PULSE 63; O2SAT 95
[2017-04-07] MEDS: MEGESTROL ACETATE SUSP 400 MG/10 ML CUP PO SCH (09:31)
[2017-04-07] MEDS: CARVEDILOL 6.25 MG TAB PO SCH ×2 (09:31→22:32)
[2017-04-07] MEDS: CHOLECALCIFEROL (VIT D3) 1000 UNIT TAB PO SCH (09:31)
[2017-04-07] MEDS: amLODIPine BESYLATE 5 MG TAB PO SCH (09:32)
[2017-04-07] MEDS: FAMOTIDINE 20 MG TAB PO SCH ×2 (09:32→22:33)
[2017-04-07] MEDS: QUEtiapine FUMARATE 25 MG TAB PO SCH ×2 (09:32→22:33)
[2017-04-07] MEDS: RANOLAZINE 500 MG EXTENDED RELEASE TAB PO SCH ×2 (09:32→22:34)
[2017-04-07] MEDS: FUROSEMIDE 40 MG TAB PO SCH (09:32)
[2017-04-07] MEDS: HYDROCORTISONE ACETATE 25 MG SUPP RECTAL SCH ×2 (09:44→21:00)
--- NOTE | 2017-04-07 09:47 | HHI.PYPN ---
Subjective Remarks Patient seen for follow, chart review. After discussion with nursing staff patient doing quite well, Ativan was held due to him feeling very lethargic last evening. Patient states they've been feeling quite good" and looking forward to be discharged back to his family soon. Patient reports having less loose bowel movements now, states he is eating and drinking more and attempting to be more active working with physical therapy to regain his strength. Patient denies any depressive symptoms denies any suicidal ideations denies any auditory hallucinations. Review of Systems Except as stated in HPI: all other systems reviewed are Neg Objective Alert: Yes [place]: Person, Place, Date Mood: Other (good) Affect: Appropriate Memory Intact: Comment (not formally assessed) Hallucinations: Other (denies any auditory or visual hallucinations at time of interview) Delusions: No Delusion Type: Other (none elicited) Suicidal: Ideation (no SI) Homicidal: Ideation (no HI) Insight/Judgment Fair insight, impulse control and judgment Labs Labs reviewed. Test 04/06/17 11:21 Sodium Level 142 MEQ/L Potassium Level 3.9 MEQ/L Chloride Level 106 MEQ/L Carbon Dioxide Level 30.0 MEQ/L Anion Gap 6 MEQ/L Blood Urea Nitrogen 49 MG/DL Creatinine 1.45 MG/DL Estimat Glomerular Filtration 46 ML/MIN Rate Random Glucose 167 MG/DL Calcium Level 7.8 MG/DL Vitals/IOs Vital Signs Date Time Temp Pulse Resp B/P Pulse Ox O2 Delivery O2 Flow Rate FiO2 04/07/17 09:29 63 191/81 95 04/07/17 06:17 97.6 18 Intake and Output 04/06/17 04/06/17 04/07/17 08:00 16:00 00:00 Intake Total 1600 ml 960 ml Output Total 400 ml 1400 ml Balance -400 ml 1600 ml -440 ml Assessment & Plan Problem List: (1) Major depressive disorder, recurrent, severe with psychotic symptoms ICD Code: F33.3 Assessment & Plan Estimated LOS: 2-3 days. Patient at this time continues to have improved mood, denies any depressive symptoms or suicidal ideations or perceptual disturbances. Patient now having less loose bowel movement, noted to be eating and drinking more with motivation to continue treatment and discharged back to his family. We'll continue to taper lorazepam as patient no longer noted to have catatonic features. Continue treatment and monitor for medication response adverse drug reactions. Supportive psychotherapy provided. Discharge planning in progress. Recommendations as per primary medical team. Justification for Cont. Inpt. Patient at risk for further decompensation if it lower level of care Discharge Planning In progress Request HC Surrog/Guard Advoc?: Yes Sal Louie MD Apr 07, 2017 09:47
[2017-04-07] MEDS: INSULIN DETEMIR 100 UNITS/ML VIAL SQ SCH ×2 (09:50→21:00)
[2017-04-07 10:04] VITALS: BP 191/81; PULSE 62; O2SAT 93
[2017-04-07 11:01] VITALS: BP 167/72; PULSE 64; O2SAT 93
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
[2017-04-07 14:21] VITALS: BP 134/62; PULSE 60
[2017-04-07 18:12] VITALS: BP 119/56; PULSE 60; RESP 20; TEMP 98.1; O2SAT 93
[2017-04-07] MEDS: MIRTAZAPINE 15 MG TAB PO SCH (22:33)
[2017-04-07] MEDS: ATORVASTATIN 20 MG TAB PO SCH (22:33)
[2017-04-07] MEDS: LORazepam 0.5 MG TAB PO SCH (22:34)
[2017-04-07] MEDS: TAMSULOSIN HCL 0.4 MG CAP PO SCH (22:34)
[2017-04-08 05:28] VITALS: BP 167/72; PULSE 61; RESP 17; TEMP 99.7; O2SAT 96
[2017-04-08] MEDS: INSULIN ASPART SUPPLEMENTAL SCALE SQ SCH ×4 (06:32→20:28)
[2017-04-08 07:36] LABS: BICARBONATE 32.1 MEQ/L (21.0-32.0); POTASSIUM 4.5 MEQ/L (3.5-5.1)
[2017-04-08] MEDS: MEGESTROL ACETATE SUSP 400 MG/10 ML CUP PO SCH (09:09)
[2017-04-08] MEDS: LORazepam 0.5 MG TAB PO SCH ×2 (09:09→20:31)
[2017-04-08] MEDS: HYDROCORTISONE ACETATE 25 MG SUPP RECTAL SCH ×2 (09:09→20:34)
[2017-04-08] MEDS: FUROSEMIDE 40 MG TAB PO SCH (09:09)
[2017-04-08] MEDS: CARVEDILOL 6.25 MG TAB PO SCH ×2 (09:09→20:41)
[2017-04-08] MEDS: RANOLAZINE 500 MG EXTENDED RELEASE TAB PO SCH ×2 (09:09→20:31)
[2017-04-08] MEDS: INSULIN DETEMIR 100 UNITS/ML VIAL SQ SCH ×3 (09:09→21:00)
[2017-04-08] MEDS: QUEtiapine FUMARATE 25 MG TAB PO SCH ×2 (09:09→20:33)
[2017-04-08] MEDS: CHOLECALCIFEROL (VIT D3) 1000 UNIT TAB PO SCH (09:09)
[2017-04-08] MEDS: FAMOTIDINE 20 MG TAB PO SCH ×2 (09:09→20:31)
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
[2017-04-08 18:05] VITALS: BP 105/52; PULSE 60; RESP 16; TEMP 98.6; O2SAT 98
--- NOTE | 2017-04-08 18:20 | HHI.PYPN ---
Subjective Remarks Patient seen for follow-up, chart review. After discussion with nursing staff, patient doing well, eating by himself, steady gait. Patient found asleep but able to wake up for interview. Patient states that his feeling "good", denies any depressive symptoms, SI nor any AH. Patient states feeling ready to go home. Patient had been visited by family recently but he did not recall. He denies any further loose bowel movements. Review of Systems Except as stated in HPI: all other systems reviewed are Neg Objective Alert: Yes [place]: Person, Place, Date Mood: Other (good) Affect: Appropriate Memory Intact: Comment (not formally assessed) Hallucinations: Other (denies any auditory or visual hallucinations at time of interview) Delusions: No Delusion Type: Other (none elicited) Suicidal: Ideation (no SI) Homicidal: Ideation (no HI) Insight/Judgment Limited insight, fair impulse control, fair judgement Labs Labs reviewed. Test 04/08/17 06:58 Blood Urea Nitrogen 35 MG/DL Creatinine 1.33 MG/DL Random Glucose 112 MG/DL Calcium Level 8.6 MG/DL Sodium Level 140 MEQ/L Potassium Level 4.5 MEQ/L Chloride Level 102 MEQ/L Carbon Dioxide Level 32.1 MEQ/L Anion Gap 6 MEQ/L Estimat Glomerular Filtration Rate 51 ML/MIN Date/Time Source Procedure Growth Status 03/11/17 12:30 Urine Clean Catch Urine Culture - Final 50-100,000 CFU/ML MIXED GRAM POSITIVE... Complete Vitals/IOs Vital Signs Date Time Temp Pulse Resp B/P (MAP) Pulse Ox O2 Delivery O2 Flow Rate FiO2 04/08/17 18:05 98.6 60 16 105/52 (69) 98 Intake and Output 04/08/17 04/08/17 04/09/17 08:00 16:00 00:00 Intake Total 640 ml Balance 640 ml Assessment & Plan Problem List: (1) Major depressive disorder, recurrent, severe with psychotic symptoms ICD Codes: F33.3 - Major depressive disorder, recurrent, severe with psychotic symptoms Status: Acute Assessment & Plan Patient continues to endorse stable mood, no longer reporting depressive symptoms, psychotic symptoms nor having SI. Will discontinue Ativan. Continue regimen. Discharge planning in progress. Justification for Cont. Inpt. At risk for further decompensation at lower level of care. Discharge Planning In progress Request HC Surrog/Guard Advoc?: Yes Sal Louie MD Apr 08, 2017 18:20
[2017-04-08] MEDS: TAMSULOSIN HCL 0.4 MG CAP PO SCH (20:30)
[2017-04-08] MEDS: ATORVASTATIN 20 MG TAB PO SCH (20:30)
[2017-04-08] MEDS: MIRTAZAPINE 15 MG TAB PO SCH (20:37)
[2017-04-08 20:38] VITALS: BP 122/70; PULSE 65
[2017-04-09] MEDS: INSULIN ASPART SUPPLEMENTAL SCALE SQ SCH ×4 (06:09→21:00)
[2017-04-09 06:34] VITALS: BP 162/74; PULSE 61; RESP 18; TEMP 98.1; O2SAT 97
[2017-04-09] MEDS: FUROSEMIDE 40 MG TAB PO SCH (08:53)
[2017-04-09] MEDS: MEGESTROL ACETATE SUSP 400 MG/10 ML CUP PO SCH (08:53)
[2017-04-09] MEDS: CHOLECALCIFEROL (VIT D3) 1000 UNIT TAB PO SCH (08:54)
[2017-04-09] MEDS: FAMOTIDINE 20 MG TAB PO SCH (08:54)
[2017-04-09] MEDS: QUEtiapine FUMARATE 25 MG TAB PO SCH ×2 (08:54→21:51)
[2017-04-09] MEDS: HYDROCORTISONE ACETATE 25 MG SUPP RECTAL SCH ×2 (08:55→21:51)
[2017-04-09] MEDS: CARVEDILOL 6.25 MG TAB PO SCH ×2 (08:55→21:51)
[2017-04-09] MEDS: RANOLAZINE 500 MG EXTENDED RELEASE TAB PO SCH ×2 (08:55→21:51)
[2017-04-09] MEDS: INSULIN DETEMIR 100 UNITS/ML VIAL SQ SCH ×2 (10:31→21:00)
[2017-04-09 16:03] LABS: BICARBONATE 29.3 MEQ/L (21.0-32.0); POTASSIUM 4.2 MEQ/L (3.5-5.1)
--- NOTE | 2017-04-09 16:11 | HHI.PYPN ---
Subjective Remarks Patient seen for follow, chart review. After discussion with nursing staff patient noted to be pleasant, been doing well. Patient was found lying in hospital bed finally good spirits, cooperative interview. Patient states that he is ready to go home denies anxiety depressed and denies any suicidality denies any perceptual disturbances. Patient states that he misses his family and family and wants to be with them again. She is aware that there is likely possibility that he would be referred to rehabilitation program or hopeless or services. Review of Systems Except as stated in HPI: all other systems reviewed are Neg Objective Alert: Yes [place]: Person, Place, Date Mood: Other (good) Affect: Appropriate Memory Intact: Comment (not formally assessed) Hallucinations: Other (denies any auditory or visual hallucinations at time of interview) Delusions: No Delusion Type: Other (none elicited) Suicidal: Ideation (no SI) Homicidal: Ideation (no HI) Insight/Judgment Fair insight, impulse control and judgment Labs Labs reviewed. Test 04/09/17 14:39 Blood Urea Nitrogen 40 MG/DL Creatinine 1.78 MG/DL Random Glucose 205 MG/DL Calcium Level 8.4 MG/DL Sodium Level 137 MEQ/L Potassium Level 4.2 MEQ/L Chloride Level 98 MEQ/L Carbon Dioxide Level 29.3 MEQ/L Anion Gap 10 MEQ/L Estimat Glomerular Filtration Rate 37 ML/MIN Date/Time Source Procedure Growth Status 03/11/17 12:30 Urine Clean Catch Urine Culture - Final 50-100,000 CFU/ML MIXED GRAM POSITIVE... Complete Vitals/IOs Vital Signs Date Time Temp Pulse Resp B/P (MAP) Pulse Ox O2 Delivery O2 Flow Rate FiO2 04/09/17 06:34 98.1 61 18 162/74 (103) 97 Intake and Output 04/09/17 04/09/17 04/09/17 07:59 15:59 23:59 Intake Total 240 ml 480 ml Balance 240 ml 480 ml Assessment & Plan Problem List: (1) Major depressive disorder, recurrent, severe with psychotic symptoms ICD Codes: F33.3 - Major depressive disorder, recurrent, severe with psychotic symptoms Status: Acute Assessment & Plan Patient at this time continues to have stable mood, no longer endorsing depressive symptoms nor suicidality or perceptual disturbances. Patient continues to improve his mobility, participating actively with physical therapy. Patient to continue current treatment. At this time discharge pending on acceptance into a rehabilitation program or homicidal. Justification for Cont. Inpt. Patient at risk for decompensation if at a lower level of care Discharge Planning In progress Request HC Surrog/Guard Advoc?: Yes Sal Louie MD Apr 09, 2017 16:11
[2017-04-09 18:00] VITALS: BP 112/56; PULSE 60; RESP 16; TEMP 98.6; O2SAT 99
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
[2017-04-09] MEDS: MIRTAZAPINE 15 MG TAB PO SCH (21:51)
[2017-04-09] MEDS: TAMSULOSIN HCL 0.4 MG CAP PO SCH (21:51)
[2017-04-09] MEDS: ATORVASTATIN 20 MG TAB PO SCH (21:52)
[2017-04-10 05:55] LABS: BICARBONATE 29.9 MEQ/L (21.0-32.0); POTASSIUM 4.2 MEQ/L (3.5-5.1)
[2017-04-10 06:33] VITALS: BP 131/65; PULSE 62; RESP 16; TEMP 97.9; O2SAT 100
[2017-04-10] MEDS: INSULIN ASPART SUPPLEMENTAL SCALE SQ SCH ×3 (07:00→16:00)
[2017-04-10] MEDS ORDERED: BUMETANIDE 1 MG TAB PO SCH (09:00)
[2017-04-10] MEDS: INSULIN DETEMIR 100 UNITS/ML VIAL SQ SCH (09:00)
[2017-04-10] MEDS ORDERED: FUROSEMIDE 40 MG TAB PO SCH (09:00)
[2017-04-10] MEDS: RANOLAZINE 500 MG EXTENDED RELEASE TAB PO SCH (09:55)
[2017-04-10] MEDS: CARVEDILOL 6.25 MG TAB PO SCH (09:55)
[2017-04-10] MEDS: QUEtiapine FUMARATE 25 MG TAB PO SCH (09:55)
[2017-04-10] MEDS: MEGESTROL ACETATE SUSP 400 MG/10 ML CUP PO SCH (09:55)
[2017-04-10] MEDS: HYDROCORTISONE ACETATE 25 MG SUPP RECTAL SCH (09:55)
[2017-04-10] MEDS: CHOLECALCIFEROL (VIT D3) 1000 UNIT TAB PO SCH (09:55)
[2017-04-10] MEDS: LOPERAMIDE HCL 2 MG CAP PO PRN (09:55)
--- NOTE | 2017-04-10 11:26 | HHI.PYPN ---
Subjective Remarks Patient seen for follow up, chart reviewed. After discussion with nursing staff patient continues to well no behavioral issues. She found lying on hospital bed states feeling great, reports having had been visited by his son which she was happy and states that his son will be leaving out of town again in a month which patient states that he would like to be home to be able to be with his . Patient reports having had some loose stools this morning was encouraged to maintain hydrated. Patient denies any other physical complaints, denies any depressive symptoms, or perceptual disturbances. Currently denies SI , HI, AVH or delusions. Review of Systems Except as stated in HPI: all other systems reviewed are Neg Objective Alert: Yes [place]: Person, Place, Date Mood: Other (great) Affect: Appropriate Memory Intact: Comment (not formally assessed) Hallucinations: Other (denies any auditory or visual hallucinations at time of interview) Delusions: No Delusion Type: Other (none elicited) Suicidal: Ideation (no SI) Homicidal: Ideation (no HI) Insight/Judgment Fair insight, impulse control and judgment Labs Labs reviewed. Test 04/09/17 14:39 04/10/17 04:34 Blood Urea Nitrogen 40 MG/DL 41 MG/DL Creatinine 1.78 MG/DL 1.70 MG/DL Random Glucose 205 MG/DL 127 MG/DL Calcium Level 8.4 MG/DL 8.1 MG/DL Sodium Level 137 MEQ/L 137 MEQ/L Potassium Level 4.2 MEQ/L 4.2 MEQ/L Chloride Level 98 MEQ/L 99 MEQ/L Carbon Dioxide Level 29.3 MEQ/L 29.9 MEQ/L Anion Gap 10 MEQ/L 8 MEQ/L Estimat Glomerular Filtration Rate 37 ML/MIN 39 ML/MIN Date/Time Source Procedure Growth Status 03/11/17 12:30 Urine Clean Catch Urine Culture - Final 50-100,000 CFU/ML MIXED GRAM POSITIVE... Complete Vitals/IOs Vital Signs Date Time Temp Pulse Resp B/P (MAP) Pulse Ox O2 Delivery O2 Flow Rate FiO2 04/10/17 06:33 97.9 62 16 131/65 (87) 100 Intake and Output 04/10/17 04/10/17 04/11/17 08:00 16:00 00:00 Intake Total 120 ml Balance 120 ml Assessment & Plan Problem List: (1) Major depressive disorder, recurrent, severe with psychotic symptoms ICD Codes: F33.3 - Major depressive disorder, recurrent, severe with psychotic symptoms Status: Acute Assessment & Plan Patient this time continues to do well, maintaining stable mood, denies any depressive or psychotic symptoms. Patient currently waiting to be accepted at a rehabilitation program. We'll continue to monitor patient's bowel movements as he reported some loose stools this morning. Patient will continue to work with physical therapy to improve on physical deconditioning. Continue current treatment. Discharge planning in progress Justification for Cont. Inpt. At risk for further decompensation if at lower level of care Request HC Surrog/Guard Advoc?: Yes Sal Louie MD Apr 10, 2017 11:25
[2017-04-10] MEDS ORDERED: MIRT30TA PO (15:09)
[2017-04-10] MEDS ORDERED: TAMS5CAP PO (15:09)
[2017-04-10] MEDS ORDERED: ATOR20TA15 PO (15:09)
[2017-04-10] MEDS ORDERED: ANUS25SU RECTAL (15:09)
[2017-04-10] MEDS ORDERED: CARV6.25 PO (15:09)
[2017-04-10] MEDS ORDERED: AMLO10 PO (15:09)
[2017-04-10] MEDS ORDERED: BUME1TAB PO (15:09)
[2017-04-10] MEDS ORDERED: RANO500 PO (15:09)
[2017-04-10] MEDS ORDERED: VITA1000 PO (15:09)
[2017-04-10] MEDS ORDERED: QUET5TAB PO (15:09)
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
[2017-04-11] MEDS ORDERED: BUMETANIDE 1 MG TAB PO SCH (09:00)
== END 2017-04-10 17:15 | DRG 885 ==
LOC: NEPE 01:56 → NEDA 14:47 → H250 16:00 → H4EA 03-16 21:34
PROVIDERS: ADMIT Student in an Organized Health Care Education/Training Program; ATTEND Student in an Organized Health Care Education/Training Program
DX: F33.3 Major depressive disorder, recurrent, severe with psychotic symptoms (principal); N17.9 Acute kidney failure, unspecified; I13.0 Hypertensive heart and chronic kidney disease with heart failure and stage 1 through stage 4 chronic kidney disease, or unspecified chronic kidney disease; E11.22 Type 2 diabetes mellitus with diabetic chronic kidney disease; I95.9 Hypotension, unspecified; I50.42 Chronic combined systolic (congestive) and diastolic (congestive) heart failure; D69.6 Thrombocytopenia, unspecified; E11.40 Type 2 diabetes mellitus with diabetic neuropathy, unspecified; J45.21 Mild intermittent asthma with (acute) exacerbation; N30.00 Acute cystitis without hematuria; K59.00 Constipation, unspecified; F43.10 Post-traumatic stress disorder, unspecified; N18.3 Chronic kidney disease, stage 3 (moderate); I25.5 Ischemic cardiomyopathy; R33.9 Retention of urine, unspecified; R19.7 Diarrhea, unspecified; I25.118 Atherosclerotic heart disease of native coronary artery with other forms of angina pectoris; R60.0 Localized edema; N50.89 Other specified disorders of the male genital organs; E11.65 Type 2 diabetes mellitus with hyperglycemia; N20.0 Calculus of kidney; K62.89 Other specified diseases of anus and rectum; K64.9 Unspecified hemorrhoids; D64.9 Anemia, unspecified; I25.2 Old myocardial infarction; Z79.4 Long term (current) use of insulin; Z95.1 Presence of aortocoronary bypass graft; Z95.0 Presence of cardiac pacemaker
CPT/HCPCS: 36600; 70450; 71010; 74000; 74176; 76775; 80048; 80053; 80061; 80069; 80307; 81001; 82306; 82607; 82805; 82948; 83036; 83735; 83880; 84100; 84155; 85007; 85025; 85027; 87086; 87493; 93005; 93306; 94640; 94664; 96372; J0696; J1200; J1630; J1815; J1940; J2060; J2920; J2930; J7030; J7050; J7512; Q0163